=== PATIENT | female | born 1950 | race Caucasian/White ===

== ENCOUNTER 2020-10-09 11:11 | Outpatient (REF) | payer MEDICARE, SELFPAY ==
--- NOTE | 2020-10-09 11:17 | MM_ITS ---
EXAMINATION: MM SCREENING DIGITAL BREAST TOMOSYNTHESIS, BILATERAL CLINICAL INFORMATION: Screening. Asymptomatic. The lifetime risk of breast cancer based on the Tyrer-Cuzick Model is 4%. COMPARISON: Mammography: 10/04/2019, 09/29/2018, 09/08/2017 TECHNIQUE: Digital breast tomosynthesis is performed in both the craniocaudal and mediolateral oblique views along with computer-aided detection (CAD). Synthesized 2D images are generated from the tomosynthesis. FINDINGS: There are scattered areas of fibroglandular density (ACR BI-RADS breast composition Category b). There are no significant masses, abnormal calcifications, or other abnormalities. Parenchymal pattern is similar to prior exams. The axilla are unremarkable. MM/MM tomosynthesis screening BI IMPRESSION: No mammographic evidence of malignancy. ASSESSMENT: BI-RADS 1: Negative RECOMMENDATION: Routine annual mammography screening. This patient's information was entered into a reminder system with a target due date for their next mammogram.
== END 2020-10-09 11:12 | disposition home or self-care (01) ==
LOC: HO.MAMMO 11:11
PROVIDERS: PCP Internal Medicine; Visit Provider Internal Medicine
DX: Z12.31 Encounter for screening mammogram for malignant neoplasm of breast (principal)
CPT/HCPCS: 77063; 77067

== ENCOUNTER 2020-11-15 09:23 | Outpatient (REF) | payer MEDICARE, SELFPAY ==
[2020-11-15 11:20] LABS: Hematocrit 44.9 % (37-47); Hemoglobin 14.8 g/dl (12.0-16.0); Mean Corpuscular Hemoglobin 31.8 pg (27.0-33.0); Mean Corpuscular Volume 96.6 fL (80-98); Mean Platelet Volume 10.3 fL (9.4-12.3); Platelet Count 315 X10*3/uL (160-400); Red Blood Count 4.65 X10*6/uL (4.20-5.50); White Blood Count 8.1 X10*3/uL (4.8-10.8)
[2020-11-15 11:31] LABS: Estimated Average Glucose 131 mg/dL; Hemoglobin A1c % 6.2 %
[2020-11-15 11:53] LABS: Cholesterol 199 mg/dL; HDL Cholesterol 58 mg/dL; LDL Cholesterol Calculated 123 mg/dl; Triglycerides 92 mg/dL
== END 2020-11-15 09:24 | disposition home or self-care (01) ==
LOC: HO.HMGCLDS 09:23
PROVIDERS: PCP Internal Medicine; Visit Provider Internal Medicine
DX: E11.9 Type 2 diabetes mellitus without complications (principal); E78.5 Hyperlipidemia, unspecified; J44.9 Chronic obstructive pulmonary disease, unspecified
CPT/HCPCS: 36415; 80061; 83036; 85027

== ENCOUNTER 2021-02-25 09:47 | Outpatient (REF) | payer MEDICARE, SELFPAY ==
[2021-02-25 11:24] LABS: MANUAL DIFF FLAG NO
[2021-02-25 11:41] LABS: Basophils Absolute Auto 0.1 X10*3/uL (0.0-0.2); Basophils Percent Auto 1.2 % (0-2); Eosinophils Absolute Auto 0.2 X10*3/uL (0.0-0.4); Eosinophils Percent Auto 2.1 % (0-4); Hemoglobin 15.5 g/dl (12.0-16.0); Imm Gran Abs Auto 0.03 X10*3/uL (0.00-0.03); Imm Gran Pct Auto 0.4 % (0.0-0.4); Lymphocytes Absolute Auto 2.4 X10*3/uL (1.2-4.9); Mean Corpuscular HGB Conc 33.7 g/dl (31.0-35.0); Mean Corpuscular Hemoglobin 32.3 pg (27.0-33.0); Mean Corpuscular Volume 95.8 fL (80-98); Mean Platelet Volume 10.4 fL (9.4-12.3); Monocytes Absolute Auto 0.7 X10*3/uL (0.1-1.2); Monocytes Percent Auto 8.7 % (2-11); Neutrophils Absolute Auto 4.8 X10*3/uL (2.0-8.3); Neutrophils Percent Auto 58.6 % (45-73); Platelet Count 324 X10*3/uL (160-400); Red Cell Distribution Width 13.1 % (11.0-16.0); White Blood Count 8.2 X10*3/uL (4.8-10.8)
[2021-02-25 11:49] LABS: Cholesterol 198 mg/dL; HDL Cholesterol 57 mg/dL; LDL Cholesterol Calculated 120 mg/dl; Triglycerides 107 mg/dL
[2021-02-25 12:13] LABS: Estimated Average Glucose 140 mg/dL; Hemoglobin A1c % 6.5 %
[2021-02-25 12:28] LABS: Creatinine Urine 58.58 mg/dL; Microalbumin Urine < 5.0 mg/L
== END 2021-02-25 09:48 | disposition home or self-care (01) ==
LOC: HO.HMGCLDS 09:47
PROVIDERS: PCP Internal Medicine; Visit Provider Internal Medicine
DX: E66.3 Overweight (principal); E11.9 Type 2 diabetes mellitus without complications; I10 Essential (primary) hypertension; J44.9 Chronic obstructive pulmonary disease, unspecified
CPT/HCPCS: 36415; 80061; 82043; 83036; 85025

== ENCOUNTER 2021-07-15 07:42 | Outpatient (REF) | payer MEDICARE, SELFPAY ==
[2021-07-15 11:18] LABS: Hematocrit 43.5 % (37-47); Hemoglobin 14.5 g/dl (12.0-16.0); Mean Corpuscular HGB Conc 33.3 g/dl (31.0-35.0); Mean Platelet Volume 10.5 fL (9.4-12.3); Platelet Count 281 X10*3/uL (160-400); Red Blood Count 4.53 X10*6/uL (4.20-5.50); Red Cell Distribution Width 13.2 % (11.0-16.0); White Blood Count 7.2 X10*3/uL (4.8-10.8)
[2021-07-15 12:00] LABS: Alanine Aminotransferase 18 U/L (0-31); Albumin Level 3.7 g/dL (3.5-5.0); Alkaline Phosphatase 98 U/L (39-117); Anion Gap 16 (12-20); Aspartate Amino Transferase 18 U/L (5-31); Blood Urea Nitrogen 18 mg/dL (9-16); Calcium 9.1 mg/dL (8.4-10.2); Carbon Dioxide 26 mmol/L (22-29); Chloride 104 mmol/L (96-108); Cholesterol 186 mg/dL; Estimated Glomerular Filt Rate > 60; Glucose Fasting 130 mg/dL (60-99); HDL Cholesterol 55 mg/dL; LDL Cholesterol Calculated 113 mg/dl; Potassium 3.9 mmol/L (3.3-5.1); Sodium 142 mmol/L (135-145); Total Protein 6.4 g/dL (6.5-8.0); Triglycerides 91 mg/dL
[2021-07-15 12:14] LABS: Estimated Average Glucose 128 mg/dL; Hemoglobin A1c % 6.1 %
[2021-07-15 14:28] LABS: Glucose Urine UA NEG (NEG); Leukocyte Esterase Urine NEG (NEG); Nitrite Urine NEG (NEG); PH 6.5 (5.0-8.0); Urine Blood NEG (NEG); Urine Ketones NEG (NEG); Urine Protein NEG (NEG-TRACE)
[2021-07-15 14:31] LABS: Appearance Urine CLEAR; Color Urine YELLOW
[2021-07-15 14:44] LABS: Creatinine Urine 63.58 mg/dL; Microalbumin Urine < 5.0 mg/L
[2021-07-15 14:58] LABS: RBC Urine 0 /HPF (0); Squamous Epithelial Cell Urine TRACE /LPF; WBC Urine 0 /HPF (0-4)
== END 2021-07-15 07:43 | disposition home or self-care (01) ==
LOC: HO.HMGCLDS 07:42
PROVIDERS: PCP Internal Medicine; Visit Provider Internal Medicine
DX: E11.9 Type 2 diabetes mellitus without complications (principal); E66.3 Overweight; I10 Essential (primary) hypertension
CPT/HCPCS: 36415; 80053; 80061; 81001; 82043; 83036; 85027

== ENCOUNTER → 2021-07-31 10:05 | Outpatient (REF) | payer MEDICARE, SELFPAY ==
--- NOTE | 2021-07-31 10:12 | ECG_ITS ---
Hook-up date: 2021-07-31 10:29:00 Duration: 25:25:00 Test Indications: CHR. COPD, PALPITATIONS Medications: [id number] QRS complexes 140 Ventricular ectopics which represent <1 % of total QRS comp. 704 Supraventricular ectopics which represent <1 % of total QRS comp. * Paced QRS complexs which represent % of total QRS comp. VENTRICULAR ECTOPY 140 Isolated 0 Bigeminal Cycles 0 Couplets 0 Runs 0 Beats in Runs * Beats LONGEST at * BPM at :: -- * Beats FASTEST at * BPM at :: -- SUPRAVENTRICULAR ECTOPY 681 Isolated 1 Couplets 4 Runs 21 Beats in Runs 9 Beats LONGEST at 169 BPM at 10:36:47 2021-07-31 3 Beats FASTEST at 178 BPM at 12:48:35 2021-07-31 HEART RATES 56 MIN at 06:52:26 2021-08-01 87 AVG 138 MAX at 10:52:07 2021-07-31 LONGEST RR 1.1760 secs at 06:11:30 2021-08-01 S-T LEVELS Channel 1 - 128 mm at 10:29:00 2021-07-31 - 128 mm at 10:29:00 2021-07-31 Channel 2 - 128 mm at 10:29:00 2021-07-31 - 128 mm at 10:29:00 2021-07-31 Channel 3 - 128 mm at 02:94:81 -- - 128 mm at 02:94:81 Basic rhythm Normal sinus rhythm No long pause or profound bradycardia Occasional Premature atrial complexes Few short bursts of SVT longest 9 beats at 169 bpm Patient symptoms of SOB correlated with NSR Referred By: Milli Colin Overread By: NICOLASA TREJO MD
== END ==
LOC: HO.SL 10:05
PROVIDERS: PCP Internal Medicine; Visit Provider Internal Medicine
DX: R09.02 Hypoxemia (principal); R00.2 Palpitations; J44.9 Chronic obstructive pulmonary disease, unspecified; G47.30 Sleep apnea, unspecified
CPT/HCPCS: 93225; 93226; 95806

== ENCOUNTER 2021-12-04 08:01 | Outpatient (REF) | payer MEDICARE, SELFPAY ==
[2021-12-04 11:50] LABS: Alanine Aminotransferase 18 U/L (0-31); Alkaline Phosphatase 101 U/L (39-117); Anion Gap 15 (12-20); Aspartate Amino Transferase 18 U/L (5-31); Blood Urea Nitrogen 18 mg/dL (9-16); Calcium 9.7 mg/dL (8.4-10.2); Carbon Dioxide 29 mmol/L (22-29); Chloride 102 mmol/L (96-108); Estimated Glomerular Filt Rate > 60; Glucose Fasting 122 mg/dL (60-99); Potassium 4.4 mmol/L (3.3-5.1); Sodium 142 mmol/L (135-145)
[2021-12-04 12:03] LABS: Estimated Average Glucose 134 mg/dL; Hemoglobin A1c % 6.3 %
== END 2021-12-04 08:02 | disposition home or self-care (01) ==
LOC: HO.HMGCLDS 08:01
PROVIDERS: Visit Provider Internal Medicine
DX: E11.9 Type 2 diabetes mellitus without complications (principal); I10 Essential (primary) hypertension; J44.9 Chronic obstructive pulmonary disease, unspecified; R09.02 Hypoxemia
CPT/HCPCS: 36415; 80053; 83036

== ENCOUNTER 2021-12-05 10:22 | Outpatient (REF) | payer MEDICARE, SELFPAY ==
--- NOTE | ~2021-12-05 | XR_ITS ---
EXAMINATION: XR CHEST CLINICAL INFORMATION: Idiopathic sleep-related nonobstructive alveolar disease. COMPARISON: None TECHNIQUE: 2 views of the chest were obtained. FINDINGS: The lungs are well expanded with plate-like atelectasis right midlung. The rest of the lungs are well expanded and clear. The heart size and pulmonary vascularity is normal. There is mild spondylosis dorsal spine. No lytic process. XR/XR chest 2V IMPRESSION: Plate-like atelectasis right midlung. No acute process.
[2021-12-05 11:49] LABS: Venous Blood Gas Refer to POC result
[2021-12-05 11:50] LABS: VBG Base Excess 0.4 mmol/L; VBG HCO3 24 mmol/L (22-26); VBG pCO2 36 mmHg; VBG pH 7.43 (7.32-7.43); VBG pO2 32 mmHg
== END 2021-12-05 10:23 | disposition home or self-care (01) ==
LOC: HO.LAB 10:22
PROVIDERS: PCP Internal Medicine; Visit Provider Internal Medicine
DX: J44.9 Chronic obstructive pulmonary disease, unspecified (principal); G47.34 Idiopathic sleep related nonobstructive alveolar hypoventilation; G47.33 Obstructive sleep apnea (adult) (pediatric); E66.3 Overweight; Z79.899 Other long term (current) drug therapy; Z99.81 Dependence on supplemental oxygen; Z87.891 Personal history of nicotine dependence
CPT/HCPCS: 36415; 71046; 82803; 99202

== ENCOUNTER 2021-12-24 11:23 | Outpatient (REF) | payer MEDICARE, SELFPAY ==
--- NOTE | ~2021-12-24 | MM_ITS ---
EXAMINATION: MM SCREENING DIGITAL BREAST TOMOSYNTHESIS, BILATERAL CLINICAL INFORMATION: Screening. Asymptomatic. The lifetime risk of breast cancer based on the Tyrer-Cuzick Model is 3%. COMPARISON: Mammography: 10/09/2020, 10/04/2019, 09/29/2018, 09/08/2017 TECHNIQUE: Digital breast tomosynthesis is performed in both the craniocaudal and mediolateral oblique views along with computer-aided detection (CAD). Synthesized 2D images are generated from the tomosynthesis. Additional bilateral MLO views are provided. FINDINGS: There are scattered areas of fibroglandular density (ACR BI-RADS breast composition Category b). There are no significant masses, abnormal calcifications, or other abnormalities. There is no interval mass or architectural abnormality. No significant changes from prior studies. MM/MM tomosynthesis screening BI IMPRESSION: No mammographic evidence of malignancy. ASSESSMENT: BI-RADS 1: Negative RECOMMENDATION: Routine annual mammography screening. This patient's information was entered into a reminder system with a target due date for their next mammogram.
== END 2021-12-24 11:24 | disposition home or self-care (01) ==
LOC: HO.MAMMO 11:23
PROVIDERS: Visit Provider Internal Medicine
DX: Z12.31 Encounter for screening mammogram for malignant neoplasm of breast (principal)
CPT/HCPCS: 77063; 77067

== ENCOUNTER → 2022-02-03 10:32 | Outpatient (BNVA) | payer MEDICARE, SELFPAY | PROVIDERS: PCP Internal Medicine; Visit Provider Internal Medicine | DX: J44.9 Chronic obstructive pulmonary disease, unspecified (principal); G47.34 Idiopathic sleep related nonobstructive alveolar hypoventilation; G47.33 Obstructive sleep apnea (adult) (pediatric); E11.9 Type 2 diabetes mellitus without complications; I10 Essential (primary) hypertension; E66.01 Morbid (severe) obesity due to excess calories; Z68.41 Body mass index [BMI] 40.0-44.9, adult; Z87.891 Personal history of nicotine dependence; Z99.81 Dependence on supplemental oxygen; Z88.0 Allergy status to penicillin; Z88.2 Allergy status to sulfonamides; Z79.899 Other long term (current) drug therapy | CPT/HCPCS: 99212 ==

== ENCOUNTER 2022-02-27 08:33 | Outpatient (REF) | payer MEDICARE, SELFPAY ==
[2022-02-27 11:23] LABS: Hematocrit 43.4 % (37.0-47.0); Hemoglobin 14.8 g/dl (12.0-16.0); Mean Corpuscular HGB Conc 34.1 g/dl (31.0-35.0); Mean Corpuscular Hemoglobin 32.2 pg (27.0-33.0); Mean Corpuscular Volume 94.6 fL (80.0-98.0); Mean Platelet Volume 10.4 fL (9.4-12.3); Platelet Count 287 X10*3/uL (160-400); Red Blood Count 4.59 X10*6/uL (4.20-5.50); Red Cell Distribution Width 13.1 % (11.0-16.0); White Blood Count 7.4 X10*3/uL (4.8-10.8)
[2022-02-27 11:26] LABS: Estimated Average Glucose 126 mg/dL
[2022-02-27 11:39] LABS: Alanine Aminotransferase 18 U/L (0-31); Albumin Level 3.8 g/dL (3.5-5.0); Alkaline Phosphatase 97 U/L (39-117); Anion Gap 17 (12-20); Aspartate Amino Transferase 19 U/L (5-31); Bilirubin Total 1.1 mg/dL (0.0-1.0); Blood Urea Nitrogen 12 mg/dL (9-16); Calcium 9.3 mg/dL (8.4-10.2); Carbon Dioxide 26 mmol/L (22-29); Chloride 101 mmol/L (96-108); Cholesterol 197 mg/dL; Estimated Glomerular Filt Rate > 60; Glucose Fasting 133 mg/dL (60-99); HDL Cholesterol 54 mg/dL; LDL Cholesterol Calculated 124 mg/dl; Potassium 4.1 mmol/L (3.3-5.1); Sodium 140 mmol/L (135-145); Total Protein 6.6 g/dL (6.5-8.0); Triglycerides 97 mg/dL
[2022-02-27 11:58] LABS: Creatinine Urine 134.59 mg/dL; Microalbum/Creatinine Ratio Ur 7.4 ug/mg cr
[2022-02-27 12:03] LABS: TSH reflex Free T4 1.63 uIU/mL (0.32-4.0)
== END 2022-02-27 08:34 | disposition home or self-care (01) ==
LOC: HO.HMGCLDS 08:33
PROVIDERS: Visit Provider Internal Medicine
DX: E11.9 Type 2 diabetes mellitus without complications (principal); I10 Essential (primary) hypertension; J44.9 Chronic obstructive pulmonary disease, unspecified
CPT/HCPCS: 36415; 80053; 80061; 82043; 83036; 84443; 85027

== ENCOUNTER 2022-02-27 10:54 | Outpatient (REF) | payer MEDICARE, SELFPAY ==
--- NOTE | 2022-02-27 15:58 | PFT_ITS ---
FLOWS: FEV1 62% of predicted at 1.19 L. FVC 70% of predicted at 1.78 L. FEV1 to FVC ratio of 0.67. No bronchodilator response. LUNG VOLUMES: Total lung capacity 83% of predicted at 3.84 L. Residual volume 81% of predicted at 1.70 L. Slow vital capacity 85% of predicted at 2.14 L. Expiratory reserve volume 30% of predicted at 0.16 L. Diffusion capacity is moderately decreased. IMPRESSION: Moderate obstructive ventilatory defect with no bronchodilator response. Decreased expiratory reserve volume suggests extrathoracic restriction, likely secondary to abdominal obesity. Decreased diffusion capacity suggests emphysema. MD FABIAN Rizzo/MODL / [id number]
== END 2022-02-27 10:55 | disposition home or self-care (01) ==
LOC: HO.RESP 10:54
PROVIDERS: PCP Internal Medicine; Visit Provider Internal Medicine
DX: G47.33 Obstructive sleep apnea (adult) (pediatric) (principal); G47.34 Idiopathic sleep related nonobstructive alveolar hypoventilation; J44.9 Chronic obstructive pulmonary disease, unspecified
CPT/HCPCS: 94060; 94727; 94729

== ENCOUNTER 2022-03-27 10:55 | Outpatient (REF) | payer MEDICARE, SELFPAY ==
[2022-03-27 14:00] LABS: Appearance Urine HAZY; Color Urine YELLOW; Glucose Urine UA NEG (NEG); Leukocyte Esterase Urine 2+ (NEG); Nitrite Urine NEG (NEG); PH 7.5 (5.0-8.0); UACC Culture Trigger YES; Urine Blood 1+ (NEG); Urine Ketones NEG (NEG); Urine Protein TRACE MG/DL (NEG-TRACE)
[2022-03-27 14:19] LABS: Bacteria Urine TRACE /LPF; Squamous Epithelial Cell Urine TRACE /LPF
== END 2022-03-27 10:56 | disposition home or self-care (01) ==
LOC: HO.HMGCLDS 10:55
PROVIDERS: PCP Internal Medicine; Visit Provider Internal Medicine
DX: R35.0 Frequency of micturition (principal); N81.10 Cystocele, unspecified
CPT/HCPCS: 81001; 81003; 87086; 87088; 87186

== ENCOUNTER 2022-03-28 15:36 | Outpatient (REF) | payer MEDICARE, SELFPAY ==
--- NOTE | ~2022-03-28 | US_ITS ---
EXAMINATION: US PELVIS CLINICAL INFORMATION: Cystocele COMPARISON: None TECHNIQUE: Ultrasound of the pelvis is performed using both transabdominal and transvaginal transducers along with Doppler. Transvaginal imaging is performed due to inadequate visualization transabdominally. FINDINGS: Uterus: The uterus is measuring 6.5 x 2.4 x 3.2 cm. Anteverted, anteflexed. Endometrial thickness is measured by the minister of religion at 7 mm. My measurement 1.1 cm. Endometrial canal is characterized by focal area of increased echogenicity measured by the minister of religion at 5 x 6 x 5 mm. This could represent a polyp. The ovaries are not visualized. There is no free fluid. Bladder volume measured at 19.7 mL. Decompressed bladder. US/US pelvic and transvaginal IMPRESSION: Bladder is decompressed. The endometrial canal is widened in this postmenopausal patient with mixed echogenicity and a focal area which could represent an echogenic polyp versus other. Gynecologic consultation is warranted
== END 2022-03-28 15:37 | disposition home or self-care (01) ==
LOC: HO.US 15:36
PROVIDERS: PCP Internal Medicine; Visit Provider Internal Medicine
DX: R35.0 Frequency of micturition (principal); N81.10 Cystocele, unspecified; N95.0 Postmenopausal bleeding
CPT/HCPCS: 76830; 76856

== ENCOUNTER → 2022-04-16 13:53 | Outpatient (BNVA) | payer MEDICARE, SELFPAY | PROVIDERS: PCP Internal Medicine; Visit Provider Obstetrics & Gynecology | DX: N95.0 Postmenopausal bleeding (principal) | CPT/HCPCS: 99202 ==

== ENCOUNTER → 2022-04-22 14:38 | Outpatient (BNVA) | payer MEDICARE, SELFPAY | PROVIDERS: PCP Internal Medicine; Visit Provider Internal Medicine | DX: J44.9 Chronic obstructive pulmonary disease, unspecified (principal); G47.34 Idiopathic sleep related nonobstructive alveolar hypoventilation; G47.33 Obstructive sleep apnea (adult) (pediatric) | CPT/HCPCS: 99212 ==

== ENCOUNTER 2022-05-02 12:48 | Outpatient (REF) | payer MEDICARE, SELFPAY ==
[2022-05-02 15:48] LABS: Estimated Average Glucose 223 mg/dL; Hemoglobin A1c % 9.4 %
[2022-05-02 16:06] LABS: Alanine Aminotransferase 21 U/L (0-31); Albumin Level 3.9 g/dL (3.5-5.0); Alkaline Phosphatase 128 U/L (39-117); Anion Gap 15 (12-20); Aspartate Amino Transferase 17 U/L (5-31); Bilirubin Total 1.1 mg/dL (0.0-1.0); Blood Urea Nitrogen 14 mg/dL (9-16); Calcium 9.4 mg/dL (8.4-10.2); Carbon Dioxide 26 mmol/L (22-29); Chloride 97 mmol/L (96-108); Estimated Glomerular Filt Rate 51; Glucose Random 390 mg/dL (60-115); Sodium 134 mmol/L (135-145); Total Protein 7.1 g/dL (6.5-8.0)
[2022-05-03 18:36] LABS: C Peptide 2.77 ng/mL (0.80-3.85)
== END 2022-05-02 12:49 | disposition home or self-care (01) ==
LOC: HO.HMGCLDS 12:48
PROVIDERS: PCP Internal Medicine; Visit Provider Internal Medicine
DX: E11.9 Type 2 diabetes mellitus without complications (principal)
CPT/HCPCS: 36415; 80053; 83036; 84681

== ENCOUNTER 2022-05-09 05:51 | Day surgery (SDC) | payer MEDICARE, SELFPAY ==
[2022-04-30 18:38] VITALS: BMI 38.0
--- NOTE | 2022-05-07 14:04 | P.CONAN_ITS ---
HPI - Anesthesia Eval Consult details Narrative: 72yo F for D&C Hysteroscopy, possible polypectomy/myomectomy O2 at [facility] Active Problems Active Problems: All Active Problems (Updated 04/30/22 @ 18:36 by Romy Kauffman RN) HTN (hypertension) (Acute) COPD (chronic obstructive pulmonary disease) (Acute) DM (diabetes mellitus) (Acute) Colon cancer screening (Acute) Overweight (Acute) Palpitations (Acute) Hypoxia (Acute) Nocturnal hypoxemia (Acute) MORRO (obstructive sleep apnea) (Acute) Vitamin D deficiency (Acute) Increased urinary frequency (Acute) Vaginal prolapse (Acute) Postmenopausal bleeding (Acute) Past Medical History Medical History Arthritis Dependence on nocturnal oxygen therapy GERD (gastroesophageal reflux disease) GERD (gastroesophageal reflux disease) History of DVT (deep vein thrombosis) Mammogram normal Osteoarthritis Family History Family History Father ETOH abuse Cirrhosis Mother COPD (chronic obstructive pulmonary disease) Diabetes Brother Substance use disorder Surgical History Surgical History H/O colonoscopy History of cataract Hx of cholecystectomy Social History Social History Housing: House Patient Tobacco Use Status: Former Tobacco user Quit Date: 2001 e-Cigarette/Vaping Use: Never Used Current occupational status: retired Cognitive needs: No Hearing needs: No Vision needs: Yes Meds Allergies Allergy/AdvReac Type Severity Reaction Status Date / Time Penicillins Allergy Unknown pt does Verified 05/21/22 11:53 not know she was a child Sulfa (Sulfonamide Allergy Unknown Unknown Verified 05/21/22 11:53 Antibiotics) Home Medications Medication Instructions Recorded Confirmed Last Taken Type albuterol sulfate 90 mcg/actuation 2 puff inhalation Q6H PRN 08/17/20 05/02/22 Unknown History aerosol inhaler (Ventolin HFA) Shortness Of Breath Or Wheezing blood sugar diagnostic ([employer]ChalksTouch #10 ea 08/17/20 05/02/22 Unknown History Ultra Blue Test Strip) lancets 33 gauge (OneTouch Delica #100 ea 08/17/20 05/02/22 Unknown History Lancets) omega 0-yal-wcu-fish oil 1,000 mg 1 cap PO DAILY 08/17/20 05/02/22 Unknown History (120 mg-180 mg) capsule (Fish Oil) omeprazole magnesium 20 mg 20 mg PO DAILY 08/17/20 05/02/22 05/09/22 History tablet,delayed release (Prilosec OTC) glucosamine HCl 1,500 mg tablet 1,500 mg PO DAILY 12/05/21 05/02/22 Unknown History multivitamin (Multiple Vitamins) 1 tab PO DAILY 12/05/21 05/02/22 Unknown History pseudoephedrine HCl 30 mg tablet 30 mg PO Q4-6H PRN Allergic 12/05/21 05/02/22 Unknown History (Sudafed) Symptoms cetirizine 10 mg capsule (Zyrtec) 10 mg PO DAILY 02/03/22 05/02/22 Unknown History ascorbic acid (vitamin C) 500 mg 500 mg PO DAILY 03/03/22 05/02/22 Unknown History tablet cholecalciferol (vitamin D3) 25 25 mcg PO DAILY 03/03/22 05/02/22 Unknown History mcg (1,000 unit) capsule fluticasone fur. 100 mcg-umeclid 1 ea inhalation DAILY 04/30/22 05/02/22 05/09/22 History 62.5 mcg-vilant 25 mcg inhalat.powder (Trelegy Ellipta) Exam Exam Date and Time: May 07, 2022 1404 Height,Weight and Vital Signs: Height 5 ft 1 in Weight 91.172 kg Pertinent Lab Results Pertinent Lab Results: Laboratory Tests 02/27/22 05/02/22 08:40 12:53 WBC 7.4 Hgb 14.8 Hct 43.4 Plt Count 287 Sodium 134 L Potassium 4.0 Chloride 97 Carbon Dioxide 26 BUN 14 Creatinine 1.06 Narrative Narrative: PFT 02/2022 IMPRESSION:? Moderate obstructive ventilatory defect with no bronchodilator response. Decreased expiratory reserve volume suggests extrathoracic restriction, likely secondary to abdominal obesity.? Decreased diffusion capacity suggests emphysema. Assessment and Plan Assessment Anesthesia Assessment: Chart Reviewed
[2022-05-09 06:24] VITALS: BP 156/63; PULSE 99; RESP 20; TEMP 36.6; O2SAT 95
[2022-05-09 06:27] LABS: Glucose, Whole Blood 176 mg/dL (60-115)
[2022-05-09] MEDS: Lactated Ringers 1,000 ML 100 ML IVCONT (06:36)
--- NOTE | 2022-05-09 07:22 | HO.ANESPROP2 ---
[facility] Active Problems Active Problems: All Active Problems (Updated 04/30/22 @ 18:36 by Romy Kauffman RN) HTN (hypertension) (Acute) COPD (chronic obstructive pulmonary disease) (Acute) DM (diabetes mellitus) (Acute) Colon cancer screening (Acute) Overweight (Acute) Palpitations (Acute) Hypoxia (Acute) Nocturnal hypoxemia (Acute) MORRO (obstructive sleep apnea) (Acute) Vitamin D deficiency (Acute) Increased urinary frequency (Acute) Vaginal prolapse (Acute) Postmenopausal bleeding (Acute) Past Medical History Medical History Arthritis Dependence on nocturnal oxygen therapy GERD (gastroesophageal reflux disease) GERD (gastroesophageal reflux disease) History of DVT (deep vein thrombosis) Mammogram normal Osteoarthritis Family History Family History Father ETOH abuse Cirrhosis Mother COPD (chronic obstructive pulmonary disease) Diabetes Brother Substance use disorder Family history of problems with anesthesia: No Surgical History Surgical History H/O colonoscopy History of cataract Hx of cholecystectomy History of Problems with Anesthesia: No Social History Social History Housing: House Patient Tobacco Use Status: Former Tobacco user Quit Date: 2001 e-Cigarette/Vaping Use: Never Used Use of substances other than those prescribed or required for medical reasons: No Are you DNR?: No Advance Directives: No Advance Directives Information Provided: No Advance Directives on File: No Recently lost weight without trying: No Nutrition Risks: No Nutritional Risk Patient : No Current occupational status: retired Cognitive needs: No Hearing needs: No Vision needs: Yes Meds Allergies Allergy/AdvReac Type Severity Reaction Status Date / Time Penicillins Allergy Unknown pt does Verified 05/02/22 12:02 not know she was a child Sulfa (Sulfonamide Allergy Unknown Unknown Verified 05/02/22 12:02 Antibiotics) Active Medications: Current Medications Albuterol Sulfate (Albuterol Sulfate (0.083%) 2.5 Mg/3 Ml Vial.Neb) 2.5 mg INHALE ONCE PRN PRN Reason: Shortness of Breath/Wheezing Lactated Ringer's (Lr) 1,000 mls @ 100 mls/hr IVCONT .Q10H KIMMEI Last Admin: 05/09/22 06:36 Dose: 100 mls/hr Home Medications Medication Instructions Recorded Confirmed Last Taken Type albuterol sulfate 90 mcg/actuation 2 puff inhalation Q6H PRN 08/17/20 05/02/22 Unknown History aerosol inhaler (Ventolin HFA) Shortness Of Breath Or Wheezing blood sugar diagnostic ([facility]Touch #10 ea 08/17/20 05/02/22 Unknown History Ultra Blue Test Strip) lancets 33 gauge ([facility]Touch Delica #100 ea 08/17/20 05/02/22 Unknown History Lancets) omega 8-bjr-omp-fish oil 1,000 mg 1 cap PO DAILY 08/17/20 05/02/22 Unknown History (120 mg-180 mg) capsule (Fish Oil) omeprazole magnesium 20 mg 20 mg PO DAILY 08/17/20 05/02/22 05/09/22 History tablet,delayed release (Prilosec OTC) glucosamine HCl 1,500 mg tablet 1,500 mg PO DAILY 12/05/21 05/02/22 Unknown History multivitamin (Multiple Vitamins) 1 tab PO DAILY 12/05/21 05/02/22 Unknown History pseudoephedrine HCl 30 mg tablet 30 mg PO Q4-6H PRN Allergic 12/05/21 05/02/22 Unknown History (Sudafed) Symptoms cetirizine 10 mg capsule (Zyrtec) 10 mg PO DAILY 02/03/22 05/02/22 Unknown History ascorbic acid (vitamin C) 500 mg 500 mg PO DAILY 03/03/22 05/02/22 Unknown History tablet cholecalciferol (vitamin D3) 25 25 mcg PO DAILY 03/03/22 05/02/22 Unknown History mcg (1,000 unit) capsule fluticasone fur. 100 mcg-umeclid 1 ea inhalation DAILY 04/30/22 05/02/22 05/09/22 History 62.5 mcg-vilant 25 mcg inhalat.powder (Trelegy Ellipta) Exam Exam Date and Time: May 09, 2022721 Height,Weight and Vital Signs: Height 5 ft 1 in Weight 91.172 kg Last Vital Signs Temp 97.8 F 05/09/22 06:24 Pulse 99 05/09/22 06:24 Resp 20 05/09/22 06:24 BP 156/63 H 05/09/22 06:24 Pulse Ox 95 05/09/22 06:24 O2 Del Method 05/09/22 06:24 Pertinent Lab Results Pertinent Lab Results: Laboratory Tests 05/09/22 06:23 POC Glucose 176 H Airway Mallampati Class: I TM Dist: >3cm Neck ROM: Full Loose/Missing/Broken Teeth: No Heart: rrr Lungs: clear Assessment and Plan Final Anesthetic Review Family History of Problems with Anesthesia: No History of Problems with Anesthesia: No NPO: Yes Final Preanesthetic Review: No Changes in Pt Med Stat, Meds/Allgs Chart Reviewed, Consent Obtained/Reviewed and Anes Risks/Benef Reviewed Anesthetic Plan Anesthetic Plan: GA Disposition: Standard PACU
--- NOTE | 2022-05-09 07:36 | MHC.SHP ---
Pre-Procedural Eval Section A Date of Service: 05/09/22 The patient is an INPATIENT: No Changes since office visit: No Cold of Flu in the past 2 weeks, No New Medical Problems, No Changes in Medication and No Patient answered all questions The History & Physical has been completed within 30 days and I have reviewed it.: Yes Section B Chief Complaint: bleeding Allergies: Allergies Allergy/AdvReac Type Severity Reaction Status Date / Time Penicillins Allergy Unknown pt does Verified 05/02/22 12:02 not know she was a child Sulfa (Sulfonamide Allergy Unknown Unknown Verified 05/02/22 12:02 Antibiotics) Plan Diagnosis/Plan: Unchanged I have reviewed the history and physical and performed a pertinent physical examination on my patient. No changes have occurred unless specified.
--- NOTE | 2022-05-09 08:07 | PM.OP ---
Brief Operative Note Date of Service: 05/09/22 Pre-op diagnosis: Postmenopausal bleeding with endometrial polyp by ultrasound Post-op diagnosis: same Procedure: Hysteroscopy D&C, Polypectomy Surgeon: Fredi Carbajal MD Anesthesia: MAC Was an Farm Management Teacher used for this Procedure?: No Estimated blood loss (mL): 0 Pathology: other (Endometrial Scrapping. Polyp) Condition: stable Disposition: PACU
--- NOTE | 2022-05-09 08:08 | W.PM.OPN ---
Operative Note Operative Note Date of Service: 05/09/22 Narrative: Preop Diagnosis: Postmenopausal bleeding with Endometrial polyp by US Operation: Diagnostic Hysteroscopy, Dilataion & Curettage and polypectomy Post Op Diagnosis: Endometrial Polyp QBL: Minimal Anesthesia: MAC Surgeon: Fredi Carbajal MD Monogram Machine Operator: None Complication: None Pathology: Endometrial Scrapings, Endometrial polyp Procedure: The patient was put in the dorsal lithotomy position, scrubbed, and draped in the usual manner. A sterile speculum was inserted in the patient's vagina. The anterior lip of the cervix was grasped with a single tooth tenaculum. The cervix was dilated up to 5 mm, then the scope was inserted in the patient's uterus. Inspection revealed endometrial polyp. The Myosure Reach device was used; it was introduced through the operative channel and polypectomy done with no complications. At the end of the procedure, all instruments were taken out of the patient uterine and vaginal cavity. The single tooth tenaculum was removed and homeostasis was assured using pressure,. The patient tolerated the procedure well and was transferred to the PACU in a stable condition.
[2022-05-09 08:11] VITALS: BP 157/57; PULSE 84; RESP 16; TEMP 36.2; O2SAT 97
[2022-05-09 08:16] VITALS: BP 175/49; PULSE 81; RESP 14; O2SAT 94
[2022-05-09 08:21] VITALS: BP 132/46; PULSE 81; RESP 16; O2SAT 93
[2022-05-09 08:26] VITALS: BP 118/62; PULSE 75; RESP 16; O2SAT 94
[2022-05-09 08:40] VITALS: BP 126/50; PULSE 74; RESP 16; TEMP 36.3; O2SAT 94
== END 2022-05-09 09:00 | disposition home or self-care (01) ==
PROVIDERS: PCP Internal Medicine; Visit Provider Obstetrics & Gynecology
PROC: 0UDB8ZZ Extraction of Endometrium, Via Natural or Artificial Opening Endoscopic (ICD-10-PCS; CPT 58558; principal; 2022-05-09 07:30)
DX: N95.0 Postmenopausal bleeding (principal); N84.0 Polyp of corpus uteri; J44.9 Chronic obstructive pulmonary disease, unspecified; Z87.891 Personal history of nicotine dependence; Z88.0 Allergy status to penicillin; Z88.2 Allergy status to sulfonamides; I10 Essential (primary) hypertension; G47.33 Obstructive sleep apnea (adult) (pediatric); R09.02 Hypoxemia; Z99.81 Dependence on supplemental oxygen; E11.9 Type 2 diabetes mellitus without complications; Z79.51 Long term (current) use of inhaled steroids; Z79.899 Other long term (current) drug therapy
CPT/HCPCS: 58558; 82947; 88305; J1100; J2405; J3010

== ENCOUNTER → 2022-05-22 08:42 | Outpatient (BNVA) | payer MEDICARE, SELFPAY | PROVIDERS: PCP Internal Medicine; Visit Provider Obstetrics & Gynecology | DX: N95.0 Postmenopausal bleeding (principal); N84.0 Polyp of corpus uteri | CPT/HCPCS: 99212 ==

== ENCOUNTER → 2022-08-26 10:25 | Outpatient (BNVA) | payer MEDICARE, SELFPAY | PROVIDERS: PCP Internal Medicine; Visit Provider Internal Medicine | DX: J44.9 Chronic obstructive pulmonary disease, unspecified (principal); G47.33 Obstructive sleep apnea (adult) (pediatric); E66.3 Overweight | CPT/HCPCS: 99212 ==

== ENCOUNTER 2022-08-29 09:29 | Outpatient (REF) | payer MEDICARE, SELFPAY ==
[2022-08-29 11:43] LABS: Hematocrit 40.4 % (37.0-47.0); Hemoglobin 13.7 g/dl (12.0-16.0); Mean Corpuscular HGB Conc 33.9 g/dl (31.0-35.0); Mean Corpuscular Hemoglobin 32.3 pg (27.0-33.0); Mean Corpuscular Volume 95.3 fL (80.0-98.0); Mean Platelet Volume 10.6 fL (9.4-12.3); Platelet Count 293 X10*3/uL (160-400); Red Blood Count 4.24 X10*6/uL (4.20-5.50); Red Cell Distribution Width 12.9 % (11.0-16.0); White Blood Count 9.2 X10*3/uL (4.8-10.8)
[2022-08-29 11:50] LABS: Estimated Average Glucose 114 mg/dL; Hemoglobin A1c % 5.6 %
[2022-08-29 12:21] LABS: Alanine Aminotransferase 17 U/L (0-31); Alkaline Phosphatase 75 U/L (39-117); Anion Gap 16 (12-20); Aspartate Amino Transferase 16 U/L (5-31); Bilirubin Total 0.6 mg/dL (0.0-1.0); Blood Urea Nitrogen 17 mg/dL (9-16); Calcium 9.4 mg/dL (8.4-10.2); Carbon Dioxide 28 mmol/L (22-29); Chloride 99 mmol/L (96-108); Cholesterol 194 mg/dL; Estimated Glomerular Filt Rate > 60; Glucose Fasting 119 mg/dL (60-99); HDL Cholesterol 54 mg/dL; LDL Cholesterol Calculated 114 mg/dl; Potassium 4.3 mmol/L (3.3-5.1); Sodium 139 mmol/L (135-145); Total Protein 6.6 g/dL (6.5-8.0); Triglycerides 131 mg/dL; Vitamin D 25-OH Total 49.7 ng/mL (>30)
[2022-08-29 12:25] LABS: Creatinine Urine 156.98 mg/dL; Microalbum/Creatinine Ratio Ur 19.7 ug/mg cr
== END 2022-08-29 09:30 | disposition home or self-care (01) ==
LOC: HO.HMGCLDS 09:29
PROVIDERS: PCP Internal Medicine; Visit Provider Internal Medicine
DX: E11.9 Type 2 diabetes mellitus without complications (principal); J44.9 Chronic obstructive pulmonary disease, unspecified; E55.9 Vitamin D deficiency, unspecified; I10 Essential (primary) hypertension
CPT/HCPCS: 36415; 80053; 80061; 82043; 82306; 83036; 85027

== ENCOUNTER 2023-01-22 10:03 | Outpatient (REF) | payer MEDICARE, SELFPAY ==
--- NOTE | ~2023-01-22 | MM_ITS ---
EXAMINATION: MM SCREENING DIGITAL BREAST TOMOSYNTHESIS, BILATERAL CLINICAL INFORMATION: Screening. Asymptomatic. The lifetime risk of breast cancer based on the Tyrer-Cuzick Model is 2.9%. COMPARISON: Mammography: December 24, 2021 and studies dating back to August 06, 2016 TECHNIQUE: Digital breast tomosynthesis is performed in both the craniocaudal and mediolateral oblique views along with computer-aided detection (CAD). Synthesized 2D images are generated from the tomosynthesis. FINDINGS: There are scattered areas of fibroglandular density (ACR BI-RADS breast composition Category b). There are no significant masses, abnormal calcifications, or other abnormalities. MM/MM tomosynthesis screening BI IMPRESSION: No significant changes ASSESSMENT: BI-RADS 1: Negative RECOMMENDATION: Routine annual mammography screening. This patient's information was entered into a reminder system with a target due date for their next mammogram.
== END 2023-01-22 10:04 | disposition home or self-care (01) ==
LOC: HO.MAMMO 10:03
PROVIDERS: PCP Internal Medicine; Visit Provider Internal Medicine
DX: Z12.31 Encounter for screening mammogram for malignant neoplasm of breast (principal)
CPT/HCPCS: 77063; 77067

== ENCOUNTER → 2023-02-25 09:23 | Outpatient (BNVA) | payer MEDICARE, SELFPAY | PROVIDERS: PCP Internal Medicine; Visit Provider Internal Medicine | DX: J44.9 Chronic obstructive pulmonary disease, unspecified (principal); G47.33 Obstructive sleep apnea (adult) (pediatric); G47.34 Idiopathic sleep related nonobstructive alveolar hypoventilation | CPT/HCPCS: 99212 ==

== ENCOUNTER 2023-02-27 08:14 | Outpatient (REF) | payer MEDICARE, SELFPAY ==
[2023-02-27 12:20] LABS: Alanine Aminotransferase 16 U/L (0-31); Albumin Level 3.7 g/dL (3.5-5.0); Alkaline Phosphatase 89 U/L (39-117); Anion Gap 15 (12-20); Aspartate Amino Transferase 16 U/L (5-31); Bilirubin Total 0.8 mg/dL (0.0-1.0); Blood Urea Nitrogen 19 mg/dL (9-16); Calcium 9.1 mg/dL (8.4-10.2); Carbon Dioxide 27 mmol/L (22-29); Chloride 102 mmol/L (96-108); Cholesterol 201 mg/dL; Estimated Glomerular Filt Rate > 60; Glucose Fasting 125 mg/dL (60-99); HDL Cholesterol 52 mg/dL; LDL Cholesterol Calculated 128 mg/dl; Potassium 4.4 mmol/L (3.3-5.1); Sodium 140 mmol/L (135-145); Total Protein 6.1 g/dL (6.5-8.0); Triglycerides 106 mg/dL
[2023-02-27 12:33] LABS: Estimated Average Glucose 123 mg/dL; Hemoglobin A1c % 5.9 %
[2023-02-27 12:42] LABS: Creatinine Urine 136.85 mg/dL; Microalbum/Creatinine Ratio Ur 12.4 ug/mg cr
== END 2023-02-27 08:15 | disposition home or self-care (01) ==
LOC: HO.HMGCLDS 08:14
PROVIDERS: PCP Internal Medicine; Visit Provider Internal Medicine
DX: I10 Essential (primary) hypertension (principal); E11.9 Type 2 diabetes mellitus without complications
CPT/HCPCS: 36415; 80053; 80061; 82043; 83036

== ENCOUNTER → 2023-05-01 14:47 | Outpatient (REF) | payer MEDICARE, SELFPAY ==
--- NOTE | 2023-05-01 14:50 | CA_ITS ---
Transthoracic Echocardiogram Patient (Last, First, Middle): Stefania Gonzalez M Gender: Female Date of : 1950 Age: 73 Procedure Date: 05/01/2023 Procedure Type: Transthoracic Echocardiogram Location: OP Height: 154.94 cm Weight: 84.37 kg BSA: 1.83 m2 Heart Rate: 97 bpm BP: 150 / 80 mmHg Steel Erecting Pusher: TO Referring MD: Milli Colin MD Ship'S Surveyor: Edmundo Hoover MD Symptoms: J44.9 - Chronic obstructive pulmonary disease, unspecified Study Quality: Adequate ECG Rhythm: Sinus Conclusions: - Essentially normal study Findings Left Ventricle Normal left ventricular size, thickness, and systolic function. The visually estimated ejection fraction is between 65-70%. Spectral Doppler is indicative of an impaired relaxation filling pattern. E/E prime ratio is <8, consistent with normal filling pressures. Evidence suggests grade I (mild) diastolic dysfunction. Right Ventricle Normal right ventricular cavity size and systolic function. Atria Both atria are normal in size. Interatrial shunt cannot be excluded. Aortic Valve Normal aortic valve structure and function. There is no aortic valve stenosis. There is no aortic valve regurgitation. Mitral Valve Normal mitral valve structure and function. There is trace mitral valve regurgitation. There is no mitral valve stenosis. Pulmonic Valve The pulmonic valve is likely normal. There is trace pulmonic valve regurgitation. Tricuspid Valve Likely normal tricuspid valve structure and function. Tricuspid regurgitation envelope is inadequate for calculation of right ventricular systolic pressure. Normal right atrial pressure. Great Vessels All visible segments of the aorta are normal in size. The pulmonary artery was not well visualized. Venous The inferior vena cava is normal in size and collapses greater than 50% with inspiration. Pericardium/Pleural There is no evidence of pericardial effusion. Prior Study Comparison no previous study in the last 5 years for comparison Measurements 2D Linear Measurements IVSd: 0.87 0.6-0.9/0.6-1.0 cm LVIDd: 4.64 3.9-5.3/4.2-5.9 cm LVIDd Index: 2.54 2.4-3.2/2.2-3.1 cm/m2 LVIDs: 3.37 2.0-3.6 cm LVPWd: 0.79 0.7-1.1 cm LA Diam: 3.70 2.7-3.8/3.0-4.0 cm LAIDs Index: 2.02 1.5-2.3 cm/m2 LV Mass: 155.91 67-162/88-224 g LV Mass Index: 85.20 43-95/49-115 g/m2 LVOT Diam: 2.00 3.0+(-)1.3 cm 2D Systolic Function EF 4C: 61.10 >55% EF 2C: 75.30 >55% EF BiP: 68.50 >55% Mitral Valve MV VTI: 0.26 MV Pk Yakov: 1.21 MV Mn Yakov: 0.84 MV Pk Grad: 6.00 MV Mn Grad: 3.00 MV Pk E: 0.82 MV PK A: 1.21 MV Decel Time: 169.00 E/A: 0.70 E'Lateral: 7.72 E'Medial: 5.87 E/E' Med: 14.00 E/E' Lat: 10.70 PHT: 50.00 MVA PHT: 4.40 MVA Continuity: 3.16 Decel [place]: 4.87 Aortic Valve AoV Pk Yakov: 1.23 AoV Mn Yakov: 0.89 AoV VTI: 0.26 AoV Pk Grad: 6.00 Aov Mn Grad: 3.00 SINCERE Cont.VTI: 3.18 LVOT LVOT Pk Yakov: 1.14 LVOT Mn Yakov: 0.79 LVOT VTI: 0.26 LVOT Pk Grad: 5.00 LVOT Mn Grad: 3.00 LVOT Diam: 2.00 LVOT Area: 3.14 Diastolic Function MV Pk E: 0.82 MV Pk A: 1.21 E/A: 0.70 E'Medial: 5.87 E/E' Med: 14.00 E' Laterial: 7.72 E/E' Lat: 10.70 Right Ventricle TAPSE (mm): 19.10 TVS' Yakov: 15.60 Tricuspid Valve RA Press: 3.00 Great Vessels Aorta Sinus of Valsalva: 2.69 2.0-3.5 cm Ao Asc: 3.10 2.1-3.4 cm Updated in Other Vendor System with Status of Final Edmundo Hoover MD electronically signed on 05/02/2023 1:04:59 PM with status of Final
== END ==
LOC: HO.CARD 14:47
PROVIDERS: PCP Internal Medicine; Visit Provider Internal Medicine
DX: R06.09 Other forms of dyspnea (principal); J44.9 Chronic obstructive pulmonary disease, unspecified; E11.9 Type 2 diabetes mellitus without complications
CPT/HCPCS: 93306

== ENCOUNTER 2023-06-25 14:53 | Outpatient (AMB) | payer MEDICARE, SELFPAY ==
--- NOTE | 2023-06-25 14:57 | MHC.OFFVIS ---
Intake Vital Signs 06/25/23 14:58 Height 5 ft 1 in Weight 183 lb BMI 34.6 BP 110/70 Intake Visit Reasons: Annual/DO NOT RS Intake Note: no concerns Acquisition Advisor Required: No Information Interpreted: non-clinical & clinical Senior Portfolio Manager: Senior Portfolio Manager Present (Saira LOPEZ) Accompanied by: Self / Same As Patient Allergies Penicillins Allergy (Unknown, Verified 06/25/23 15:03) pt does not know she was a child Sulfa (Sulfonamide Antibiotics) Allergy (Unknown, Verified 06/25/23 15:03) Unknown Post menopausal: Yes HPI HPI Comments History of Present Illness Details Presenting for annual exam. No complaints. Last Pap/HPV was many years ago, no history of abnormal Pap smear last 25 year Last Mammogram was BI-RADS 1 in 02/05 Last Colonoscopy was in 01/28 , the recommendation was to repeat in 15 years Last DEXA scan was more than 2 years PFSH Medical History Arthritis Colon cancer screening COPD (chronic obstructive pulmonary disease) Dependence on nocturnal oxygen therapy DM (diabetes mellitus) GERD (gastroesophageal reflux disease) GERD (gastroesophageal reflux disease) History of DVT (deep vein thrombosis) Hypoxia Increased urinary frequency Mammogram normal Nocturnal hypoxemia MORRO (obstructive sleep apnea) Osteoarthritis Overweight Palpitations Postmenopausal bleeding Vaginal prolapse Vitamin D deficiency Surgical History H/O colonoscopy History of cataract Hx of cholecystectomy Family History Father ETOH abuse Cirrhosis Mother COPD (chronic obstructive pulmonary disease) Diabetes Brother Substance use disorder Social History Household Members: Spouse Housing: House Alcohol intake: current Alcohol intake frequency: holidays/special occasions only Patient Tobacco Use Status: Former Tobacco user Quit Date: 2001 Years Smoked: 30 e-Cigarette/Vaping Use: Never Used service: No Current occupational status: retired Sexual orientation: Straight/Heterosexual Gender identity: Female Cognitive needs: No Hearing needs: No Vision needs: Yes Female Reproductive History Menstrual Age of Menarche: 12 Menopause type: natural Total pregnancies: 1 Full term: 1 Number of Living Children: 1 Date of last pap smear: 01/22/23 Review of Systems Const All systems reviewed & are unremarkable except as noted in HPI and below Card Reports as per HPI Resp Reports as per HPI GI Reports as per HPI and Reports no additional complaints Reports as per HPI Physical Exam Const General: cooperative, healthy appearing and comfortable Chest Chest palpation & inspection: normal inspection of the chest and normal palpation of entire chest wall Breast/axilla inspection: normal inspection of the breasts and normal inspection of the axillae Breast/axilla palpation: normal palpation of the breasts, normal palpation of the axillae and no axillary lymphadenopathy Resp Effort & Inspection: normal respiratory effort Auscultation: clear to auscultation bilaterally Percussion: percussion normal Cardio Palpation: normal PMI Rate: regular rate Rhythm: regular rhythm Heart sounds: no murmurs and no rubs Peripheral pulses: Peripheral pulses 2+ throughout GI Inspection: Yes normal to inspection Palpation (GI): Soft to palpation, nontender, no guarding, not rigid and No hepatosplenomegaly present Percussion: Yes normal to percussion Auscultation: normal bowel sounds Rectal Exam - Female: deferred General: Yes bladder normal to palpation External Female Exam: No lesion Speculum Exam - Vagina: normal appearance of the vagina, normal palpation, normal vaginal discharge and not erythematous Speculum Exam - Cervix: normal appearance of the cervix and normal palpation Bimanual exam- vagina & uterus: normal bimanual exam, normal palpation, uterine size normal, bladder normal to palpation, consistency normal and normal palpation Bimanual Exam- Adnexa, other: normal adnexae, no masses and no tenderness Assessment & Plan Assessment & Plan (1) Well woman exam: Code(s): Z01.419 - Encounter for gynecological examination (general) (routine) without abnormal findings Plan: Co testing not indicated since the patient 's age is above 65 with no history of abnormal Pap smears last 25 years. Counseled the patient about the recommended dietary allowance of 1200 mg of Calcium & 800 IU of vitamin D. Instructions given the patient to schedule her next screening Mammogram in 02/06, the patient is up-to-date with the screening colonoscopy done. Will order DEXA scan . The patient was instructed to perform monthly self-breast exams and to schedule a 2 week DEXA scan follow-up appointment and an annual exam in a year; all questions answered and the patient verbalized understanding. (2) Menopause: Code(s): Z78.0 - Asymptomatic menopausal state Orders: Orders XR DEXA axial skeleton Today Z78.0 - Asymptomatic menopausal state Coding Level of Care Code Est Pt Prev Care >65y(38886) Diagnoses Well woman exam Z01.419 Menopause Z78.0
[2023-06-25 14:58] VITALS: BP 110/70; BMI 34.6
== END 2023-06-25 15:22 | disposition home or self-care (01) ==
LOC: HO.HWS 14:53
PROVIDERS: PCP Internal Medicine; Visit Provider Obstetrics & Gynecology
DX: Z01.419 Encounter for gynecological examination (general) (routine) without abnormal findings (principal); Z78.0 Asymptomatic menopausal state
CPT/HCPCS: 99397

== ENCOUNTER → 2023-06-25 14:53 | Outpatient (BNVA) | payer MEDICARE, SELFPAY | PROVIDERS: PCP Internal Medicine; Visit Provider Obstetrics & Gynecology ==

== ENCOUNTER 2023-07-04 07:19 | Outpatient (REF) | payer MEDICARE, SELFPAY ==
[2023-07-04 11:35] LABS: MANUAL DIFF FLAG NO
[2023-07-04 11:37] LABS: Basophils Absolute Auto 0.1 X10*3/uL (0.0-0.2); Basophils Percent Auto 0.9 % (0-2); Eosinophils Absolute Auto 0.1 X10*3/uL (0.0-0.4); Eosinophils Percent Auto 1.4 % (0-4); Hemoglobin 12.4 g/dl (12.0-16.0); Imm Gran Abs Auto 0.04 X10*3/uL (0.00-0.03); Imm Gran Pct Auto 0.4 % (0.0-0.4); Lymphocytes Absolute Auto 3.4 X10*3/uL (1.2-4.9); Lymphocytes Percent Auto 38.2 % (20-40); Mean Corpuscular HGB Conc 33.5 g/dl (31.0-35.0); Mean Corpuscular Hemoglobin 32.4 pg (27.0-33.0); Mean Corpuscular Volume 96.6 fL (80.0-98.0); Mean Platelet Volume 10.7 fL (9.4-12.3); Monocytes Absolute Auto 0.7 X10*3/uL (0.1-1.2); Monocytes Percent Auto 7.6 % (2-11); Neutrophils Absolute Auto 4.6 x10*3/uL (2.0-8.3); Neutrophils Percent Auto 51.5 % (45-73); Platelet Count 294 X10*3/uL (160-400); Red Blood Count 3.83 X10*6/uL (4.20-5.50); Red Cell Distribution Width 13.3 % (11.0-16.0)
[2023-07-04 11:52] LABS: Estimated Average Glucose 114 mg/dL; Hemoglobin A1C 122.9497 umol/L; Hemoglobin A1c % 5.6 %
[2023-07-04 11:55] LABS: Alanine Aminotransferase 19 U/L (0-31); Albumin Level 3.6 g/dL (3.5-5.0); Alkaline Phosphatase 73 U/L (39-117); Anion Gap 13 (12-20); Aspartate Amino Transferase 18 U/L (5-31); Bilirubin Total 0.5 mg/dL (0.0-1.0); Blood Urea Nitrogen 17 mg/dL (9-16); Calcium 9.4 mg/dL (8.4-10.2); Carbon Dioxide 26 mmol/L (22-29); Chloride 108 mmol/L (96-108); Cholesterol 188 mg/dL; Estimated Glomerular Filt Rate > 60; Glucose Fasting 112 mg/dL (60-99); HDL Cholesterol 58 mg/dL; LDL Cholesterol Calculated 114 mg/dl; Potassium 4.3 mmol/L (3.3-5.1); Sodium 143 mmol/L (135-145); Total Protein 6.4 g/dL (6.5-8.0); Triglycerides 81 mg/dL
[2023-07-04 12:02] LABS: Creatinine Urine 120.99 mg/dL
[2023-07-04 12:09] LABS: TSH reflex Free T4 2.18 uIU/mL (0.32-4.0)
== END 2023-07-04 07:20 | disposition home or self-care (01) ==
LOC: HO.HMGCLDS 07:19
PROVIDERS: PCP Internal Medicine; Visit Provider Internal Medicine
DX: E11.9 Type 2 diabetes mellitus without complications (principal)
CPT/HCPCS: 36415; 80053; 80061; 82043; 83036; 84443; 85025

== ENCOUNTER 2023-07-06 10:58 | Outpatient (AMB) | payer MEDICARE, SELFPAY ==
[2023-07-06 11:14] VITALS: BP 120/74; PULSE 84; O2SAT 98; BMI 36.3
--- NOTE | 2023-07-06 11:14 | A.OFFPC_ITS ---
Vital Signs 07/06/23 11:14 Height 5 ft 1 in Weight 192 lb BMI 36.3 BP 120/74 Blood Pressure Location Rt brachial Position Sitting Pulse 84 Pulse Source Pulse Oximeter Pulse Oximetry (%) 98 Oxygen Delivery Method Room Air Intake Visit Reasons: 3m follow up Intake Note: Pt is here today for 3 months follow up visit. Allergies Penicillins Allergy (Unknown, Verified 07/06/23 11:18) pt does not know she was a child Sulfa (Sulfonamide Antibiotics) Allergy (Unknown, Verified 07/06/23 11:18) Unknown Medication List - Last Reconciled 07/06/23 by Milli Colin MD albuterol sulfate 90 mcg/actuation (Ventolin HFA) 2 puffs inhalation Q6H PRN ascorbic acid (vitamin C) 500 mg PO DAILY blood sugar diagnostic (Smart Renouch Ultra Blue Test Strip) As directed cetirizine (Zyrtec) 10 mg PO DAILY cholecalciferol (vitamin D3) 25 mcg PO DAILY viaclujsscu-zrkywxtlu-jxwdlysb 100-62.5-25 mcg (Trelegy Ellipta) 1 ea inhalation DAILY glucosamine HCl 1,500 mg PO DAILY lancets (Autrement (HotelHotel) Delica Lancets) As directed metformin 850 mg PO BID montelukast 10 mg PO DAILY multivitamin (Multiple Vitamins tablet) 1 tab PO DAILY omega 1-tqt-okj-fish oil 1,000 mg (120 mg-180 mg) (Fish Oil) 1 cap PO DAILY omeprazole magnesium (Prilosec OTC) 20 mg PO DAILY [oxygen concentrator with portability including oxygen supplies. 2 liters/min flow rate] psyllium husk (Daily Fiber) 0.4 grams PO BEDTIME PRN triamterene-hydrochlorothiazid 37.5-25 mg 1 tab PO DAILY Tobacco use date assessed: 07/06/23 Fall risk assessment: No Falls in past year Last assessed Fall Risk: 07/06/23 Dental Screening Dental Screen Date: 07/06/23 Did you have a dental visit in the last 12 months?: Yes Did you have a dental problem in the last 6 months where you did not have access to dental care?: No Was dental information given to patient?: Patient has dentist HPI 3m follow up HPI Details Patient presents for the follow-up of type 2 diabetes hypertension COPD, stable on current medications [facility] Medical History Arthritis Colon cancer screening COPD (chronic obstructive pulmonary disease) Dependence on nocturnal oxygen therapy DM (diabetes mellitus) GERD (gastroesophageal reflux disease) GERD (gastroesophageal reflux disease) History of DVT (deep vein thrombosis) Hypoxia Increased urinary frequency Mammogram normal Nocturnal hypoxemia MORRO (obstructive sleep apnea) Osteoarthritis Overweight Palpitations Postmenopausal bleeding Vaginal prolapse Vitamin D deficiency Surgical History H/O colonoscopy History of cataract Hx of cholecystectomy Family History Father ETOH abuse Cirrhosis Mother COPD (chronic obstructive pulmonary disease) Diabetes Brother Substance use disorder Social History Household Members: Spouse Housing: House Alcohol intake: current Alcohol intake frequency: holidays/special occasions only Patient Tobacco Use Status: Former Tobacco user Quit Date: 2001 Smoked: 30 e-Cigarette/Vaping Use: Never Used service: No Current occupational status: retired Sexual orientation: Straight/Heterosexual Gender identity: Female Cognitive needs: No Hearing needs: No Vision needs: Yes Female Reproductive History Menstrual Age of Menarche: 12 Questionnaire Thrive Questionnaire Date Thrive assessed: 03/27/22 AUDIT C Alcohol Use Questionnaire (AUDIT-C) 1. How often do you have a drink containing alcohol?: Never 3. How often do you have six or more drinks on one occasion?: Never Total Score: 0 CLARKE-7 AMB Questionnaire CLARKE-7 Date CLARKE - 7 assessed: 03/27/22 Source: Developed by Drs. Bradly Womack, Luz Shrestha, Bello Euceda and colleagues, with an educational elizabet from [employer]. Review of Systems Const All systems reviewed & are unremarkable except as noted in HPI and below Reports no additional complaints Eyes Reports no additional complaints ENT Reports no additional complaints Card Reports no additional complaints Resp Reports no additional complaints GI Reports no additional complaints Reports no additional complaints Physical exam (Primary Care) Vital Signs: Last Vital Signs Pulse 84 07/06/23 11:14 BP 120/74 07/06/23 11:14 Pulse Ox 98 07/06/23 11:14 Oxygen Delivery Method Room Air 07/06/23 11:14 BMI result Body Mass Index 36.3 Tobacco/Smoking Status: Tobacco use Status Tobacco use date assessed 07/06/23 07/06/23 11:23 Patient Tobacco Use Status Former Tobacco user 07/06/23 11:18 e-Cigarette/Vaping Use Never Used 07/06/23 11:18 Thrive Assessment: Date of Thrive Assessment Date Thrive assessed 03/27/22 07/06/23 11:18 Const General: no acute distress HENMT Mouth: Normal oral and palatal mucosa present Resp Effort & Inspection: normal respiratory effort Auscultation: clear to auscultation bilaterally Cardio Rhythm: regular rhythm Heart sounds: S1 normal heart sound present and S2 normal heart sound present GI Inspection: Yes normal to inspection Palpation (GI): Soft to palpation Percussion: Yes normal to percussion Auscultation: normal bowel sounds Extrem Other: 1+ PITTING EDEMA BILATERALLY Assessment and Plan Assessment & Plan (1) COPD (chronic obstructive pulmonary disease): Comment: Patient has chronic obstructive pulmonary disease, moderately severe. PFT on 02/27/2022 Clinically well controlled with the current regimen. TX: Trelegy 1 inhalation daily. Albuterol HFA 2 puffs Q 6 hours only p.r.n. Had a detailed discussion about COPD and management. Code(s): J44.9 - Chronic obstructive pulmonary disease, unspecified Plan: Continue Trelegy and ProAir as needed (2) DM (diabetes mellitus): Comment: On metformin, A1C 5.9 03/08 Code(s): E11.9 - Type 2 diabetes mellitus without complications Plan: A1c is down to 5.6, ADA diet increase exercise weight loss discussed with the patient. She prefers to continue taking 2 metformin today. Patient follow-up in 6 months with a fasting labs before (3) Overweight: Comment: Patient is trying to lose weight. Has lost about 10 more lb. Will continue to lose more. Code(s): E66.3 - Overweight Plan: Weight loss discussed with the patient (4) Nocturnal hypoxemia: Comment: Significant nocturnal hypoxemia was found on sleep study. Most likely due to her COPD and sleep apnea. Patient being treated with oxygen 2 L/minute at night and doing well. She had also qualified for portable , O2 . Does not use all the times , Code(s): G47.34 - Idiopathic sleep related nonobstructive alveolar hypoventilation Orders: Orders Comprehensive Sikes. Panel Fast 6 Months E11.9 - Type 2 diabetes mellitus without complications, J44.9 - Chronic obstructive pulmonary disease, unspecified, R00.2 - Palpitations, R09.02 - Hypoxemia Hemoglobin A1c 6 Months E11.9 - Type 2 diabetes mellitus without complications, J44.9 - Chronic obstructive pulmonary disease, unspecified, R00.2 - Palpitations, R09.02 - Hypoxemia Lipid Panel 6 Months E11.9 - Type 2 diabetes mellitus without complications, J44.9 - Chronic obstructive pulmonary disease, unspecified, R00.2 - Palpitations, R09.02 - Hypoxemia Microalbumin, Random (w Creat) 6 Months E11.9 - Type 2 diabetes mellitus without complications, J44.9 - Chronic obstructive pulmonary disease, unspecified, R00.2 - Palpitations, R09.02 - Hypoxemia Complete Blood Count Auto Diff 6 Months E11.9 - Type 2 diabetes mellitus without complications, J44.9 - Chronic obstructive pulmonary disease, unspecified, R00.2 - Palpitations, R09.02 - Hypoxemia Coding Level of Care Code Est Pt Level 4 (17998) Diagnoses COPD (chronic obstructive pulmonary disease) J44.9 DM (diabetes mellitus) E11.9 Overweight E66.3 Nocturnal hypoxemia G47.34
== END 2023-07-06 12:14 | disposition home or self-care (01) ==
PROVIDERS: PCP Internal Medicine; Visit Provider Internal Medicine
DX: J44.9 Chronic obstructive pulmonary disease, unspecified (principal); E11.9 Type 2 diabetes mellitus without complications; E66.3 Overweight; G47.34 Idiopathic sleep related nonobstructive alveolar hypoventilation
CPT/HCPCS: 99214

== ENCOUNTER 2023-07-08 10:51 | Outpatient (REF) | payer MEDICARE, SELFPAY ==
--- NOTE | ~2023-07-08 | MM_ITS ---
EXAMINATION: BONE DENSITOMETRY CLINICAL INDICATION: Asymptomatic menopausal state. COMPARISON: Baseline BD dated 10/04/2019. TECHNIQUE: Using a [employer] DXA System (software version: 13.1) manufactured by [email or web address], dual-energy x-ray absorptiometry was performed of the lumbar spine and left hip. The images are of good technical quality. Summary results are attached. FINDINGS: LEFT FEMUR, NECK: Current: BMD 0.831 g/cm2, Z-score -0.1, T-score -1.5, osteopenia. Baseline: BMD 0.829 g/cm2. LEFT FEMUR, TOTAL: Current: BMD 0.867 g/cm2, Z-score 0.0, T-score -1.1, osteopenia, 4.2% increase from baseline (<5% change is not significant). Baseline: BMD 0.832 g/cm2. AP SPINE L1-L2 (excluding L3 and L4): The data of L1-L4 has been changed to exclude the L3 and L4 vertebral bodies, because degenerative change at these levels may cause overestimation of lumbar spine density. Current: BMD 1.239 g/cm2, Z-score 1.6, T-score 0.6, normal, 4.5% increase from baseline (<5% change is not significant). Baseline: BMD 1.186 g/cm2. IDENTIFIED RISK FACTORS: Menopause. HISTORY OF FRACTURE: None listed. MEDICATIONS: Calcium supplements or multivitamin, vitamin D. MM/XR DEXA axial skeleton IMPRESSION: 1. DIAGNOSIS: Osteopenia based on the lowest T-score value of -1.5 in the femoral neck applying World Health Organization criteria. 2. 10-YEAR FRACTURE RISK PREDICTION, FRAX: Major osteoporotic fracture (clinical spine, forearm, hip or shoulder) 10.0%. Hip fracture 1.8%. 3. Treatment Recommendations: NOF guidelines recommend consideration for treatment in postmenopausal women and men age 50 and older presenting with the following: -A hip or vertebral (clinical or morphometric) fracture. -T-score less than or equal to -2.5 at the femoral neck or spine after appropriate evaluation to exclude secondary causes. -Low bone mass at the hip or spine and a 10-year fracture probability by FRAX of greater than or equal to 3% for hip fracture or greater than or equal to 20% for major osteoporotic fracture based on the [place] adapted WHO algorithm. 4. Other Recommendations: All treatment decisions require clinical judgment and consideration of individual patient factors, including patient preferences, comorbidities, previous drug use, risk factors not captured in the FRAX model (e.g. frailty, falls, vitamin D deficiency, increased bone turnover, interval significant decline in bone density) and possible under or overestimation of fracture risk by FRAX. Additional medical evaluation for secondary cause of low bone mineral density may be appropriate. FUTURE SCAN RECOMMENDATION: People with diagnosed cases of osteoporosis or at high risk for fracture should have regular bone mineral density tests. For patients eligible for Medicare, routine testing is allowed once every 2 years. The testing frequency can be increased to one year for patients who have rapidly progressing disease, those who are receiving or discontinuing medical therapy to restore bone mass, or have additional risk factors.
== END 2023-07-08 10:52 | disposition home or self-care (01) ==
LOC: HO.MAMMO 10:51
PROVIDERS: PCP Internal Medicine; Visit Provider Obstetrics & Gynecology
DX: Z13.820 Encounter for screening for osteoporosis (principal); Z78.0 Asymptomatic menopausal state
CPT/HCPCS: 77080

== ENCOUNTER → 2023-07-08 11:00 | Outpatient (BNV) | payer MEDICARE, SELFPAY | PROVIDERS: PCP Internal Medicine; Visit Provider Radiology Diagnostic Radiology | DX: M85.89 Other specified disorders of bone density and structure, multiple sites (principal) | CPT/HCPCS: 77080 ==

== ENCOUNTER 2023-08-13 09:41 | Outpatient (AMB) | payer MEDICARE, SELFPAY ==
[2023-08-13 09:56] VITALS: BP 124/70; BMI 36.3
--- NOTE | 2023-08-13 09:56 | MHC.OFFVIS ---
Intake Vital Signs 08/13/23 09:56 Height 5 ft 1 in Weight 192 lb BMI 36.3 BP 124/70 Intake Visit Reasons: dexa follow up Director Of Rotc Required: No Allergies Penicillins Allergy (Unknown, Verified 08/13/23 09:57) pt does not know she was a child Sulfa (Sulfonamide Antibiotics) Allergy (Unknown, Verified 08/13/23 09:57) Unknown Is last menstrual period known: No Post menopausal: Yes Patient : No HPI HPI Comments History of Present Illness Details The patient is presenting for follow up regarding DEXA scan results. T score @ spine and femoral Neck respectively were=-1.5 /not computer and 10 year FRAX risk = 10/1.8% for severe osteoporosis and fracture. [facility] Medical History Arthritis History of DVT (deep vein thrombosis) GERD (gastroesophageal reflux disease) Dependence on nocturnal oxygen therapy Postmenopausal bleeding Vaginal prolapse Increased urinary frequency Vitamin D deficiency MORRO (obstructive sleep apnea) Nocturnal hypoxemia Hypoxia Palpitations Overweight Mammogram normal Colon cancer screening DM (diabetes mellitus) Osteoarthritis GERD (gastroesophageal reflux disease) COPD (chronic obstructive pulmonary disease) Surgical History Hx of cholecystectomy History of cataract H/O colonoscopy Family History Father ETOH abuse Cirrhosis Mother COPD (chronic obstructive pulmonary disease) Diabetes Brother Substance use disorder Social History Household Members: Spouse Housing: House Alcohol intake: current Alcohol intake frequency: holidays/special occasions only Patient Tobacco Use Status: Former Tobacco user Quit Date: 2001 Years Smoked: 30 e-Cigarette/Vaping Use: Never Used Patient : No service: No Current occupational status: retired Sexual orientation: Straight/Heterosexual Gender identity: Female Cognitive needs: No Hearing needs: No Vision needs: Yes Female Reproductive History Menstrual Age of Menarche: 12 control method: none Date of last pap smear: 07/04/10 (negative) History of abnormal pap smear: No Date of Mammogram: 01/22/23 Date of last Bone Density Screenin07/08/23 Review of Systems Const All systems reviewed & are unremarkable except as noted in HPI and below Reports as per HPI and Reports no additional complaints GI Reports no additional complaints Reports no additional complaints Physical Exam Vital Signs: Last Vital Signs BP 124/70 08/13/23 09:56 BMI result Body Mass Index 36.3 Assessment & Plan Assessment & Plan (1) Osteopenia: Code(s): M85.80 - Other specified disorders of bone density and structure, unspecified site Plan: Discussed with the patient the DEXA results and FRAX risk. FRAX risk and T score showed no evidence of osteoporosis. Discussed with the patient all the options for osteoporosis prevention including lifestyle modifications including Ca+D supplements 1200 mg po qd/800 MIU, Weight bearing exercises and proteine supplements. The patient verbalized understanding and agreed plan will repeat DEXA in 2 years. Coding Level of Care Code Est Pt Level 3 (07249) Diagnoses Osteopenia M85.80
== END 2023-08-13 11:27 | disposition home or self-care (01) ==
PROVIDERS: PCP Internal Medicine; Visit Provider Obstetrics & Gynecology
DX: M85.80 Other specified disorders of bone density and structure, unspecified site (principal)
CPT/HCPCS: 99213

== ENCOUNTER → 2023-08-13 09:41 | Outpatient (BNVA) | payer MEDICARE, SELFPAY | PROVIDERS: PCP Internal Medicine; Visit Provider Obstetrics & Gynecology | DX: M85.80 Other specified disorders of bone density and structure, unspecified site (principal) | CPT/HCPCS: 99212 ==

== ENCOUNTER 2023-08-25 10:24 | Outpatient (AMB) | payer MEDICARE, SELFPAY ==
[2023-08-25 10:56] VITALS: BP 148/60; PULSE 95; O2SAT 95; BMI 35.5
--- NOTE | 2023-08-25 10:56 | MHC.OFFVIS ---
Intake Vital Signs 08/25/23 10:56 Height 5 ft 1 in Weight 188 lb BMI 35.5 BP 148/60 H Blood Pressure Location Lt brachial Position Sitting Pulse 95 Pulse Source Pulse Oximeter Pulse Oximetry (%) 95 Oxygen Delivery Method Room Air Intake Visit Reasons: COPD Intake Note: pt is here for follow up and states she is using her oxygen with exertion and at night time. Bilingual Teacher Required: No Allergies Penicillins Allergy (Unknown, Verified 08/25/23 11:09) pt does not know she was a child Sulfa (Sulfonamide Antibiotics) Allergy (Unknown, Verified 08/25/23 11:09) Unknown Medication List - Last Reconciled 08/25/23 by Rosemary Masterson MD albuterol sulfate 90 mcg/actuation (Ventolin HFA) 2 puffs inhalation Q6H PRN ascorbic acid (vitamin C) 500 mg PO DAILY blood sugar diagnostic ([place] Ultra Blue Test Strip) As directed calcium carbonate (Calcium) 1,200 mg PO QDAY cetirizine (Zyrtec) 10 mg PO DAILY cholecalciferol (vitamin D3) 25 mcg PO DAILY gmyrmnkmixt-ygenvzphg-euqhtjoh 100-62.5-25 mcg (Trelegy Ellipta) 1 ea PO DAILY glucosamine HCl 1,500 mg PO DAILY lancets (HibernaTouch Delica Lancets) As directed metformin 500 mg PO BID montelukast 10 mg PO DAILY multivitamin (Multiple Vitamins tablet) 1 tab PO DAILY omega 0-qsv-adj-fish oil 1,000 mg (120 mg-180 mg) (Fish Oil) 1 cap PO DAILY omeprazole magnesium (Prilosec OTC) 20 mg PO DAILY [oxygen concentrator with portability including oxygen supplies. 2 liters/min flow rate] psyllium husk (Daily Fiber) 0.4 grams PO BEDTIME PRN triamterene-hydrochlorothiazid 37.5-25 mg 1 tab PO DAILY Do you need a note to return to daycare/school/sports/work: No HPI COPD HPI Details THIS 73 YEARS OLD VERY PLEASANT FEMALE IS HERE FOR FOLLOW-UP AFTER 6 MONTHS. HER CHRONIC OBSTRUCTIVE PULMONARY DISEASE STATUS HAS REMAINED VERY STABLE AND WELL CONTROLLED. SHE HAS HAD NO. RESPIRATORY INFECTION OR ANY ACUTE EXACERBATION THE ONLY PROBLEM IS SHE DOES GET SHORT OF BREATH WHEN SHE WALKS OUTDOORS, BUT NOT IN THE HOUSE SHE HAS ONLY OCCASIONAL COUGH. DENIES ANY BOUTS OF WHEEZING. USES TRELEGY EVERY DAY, AND ALBUTEROL ONLY ONCE IN A WHILE. [facility] Medical History Arthritis History of DVT (deep vein thrombosis) GERD (gastroesophageal reflux disease) Dependence on nocturnal oxygen therapy Postmenopausal bleeding Vaginal prolapse Increased urinary frequency Vitamin D deficiency MORRO (obstructive sleep apnea) Nocturnal hypoxemia Hypoxia Palpitations Overweight Mammogram normal Colon cancer screening DM (diabetes mellitus) Osteoarthritis GERD (gastroesophageal reflux disease) COPD (chronic obstructive pulmonary disease) Surgical History Hx of cholecystectomy History of cataract H/O colonoscopy Family History Father ETOH abuse Cirrhosis Mother COPD (chronic obstructive pulmonary disease) Diabetes Brother Substance use disorder Social History Household Members: Spouse Housing: House Alcohol intake: current Alcohol intake frequency: holidays/special occasions only Patient Tobacco Use Status: Former Tobacco user Quit Date: 2001 Years Smoked: 30 e-Cigarette/Vaping Use: Never Used service: No Current occupational status: retired Sexual orientation: Straight/Heterosexual Gender identity: Female Cognitive needs: No Hearing needs: No Vision needs: Yes Female Reproductive History Menstrual Age of Menarche: 12 Review of Systems Const All systems reviewed & are unremarkable except as noted in HPI and below Eyes Reports no additional complaints ENT Reports nasal congestion (Mild intermittent) Card Denies chest pain, Denies irregular heart rhythm and Reports leg edema (Only mild dependent edema when she is on her feet) Resp Reports as per HPI GI Reports no additional complaints Reports no additional complaints Musc Reports no additional complaints Skin/Breast Reports system reviewed and no additional complaints, except as documented Neuro Reports no additional complaints Psych Reports no additional complaints Physical Exam Vital Signs: Last Vital Signs Pulse 95 08/25/23 10:56 BP 148/60 H 08/25/23 10:56 Pulse Ox 95 08/25/23 10:56 Oxygen Delivery Method Room Air 08/25/23 10:56 BMI result Body Mass Index 35.5 Const General: healthy appearing (EXCEPT FOR BEING OVERWEIGHT), comfortable, no acute distress, alert and awake Orientation/consciousness: patient oriented x3 HEENT Head: Yes normal to inspection General nose exam: No nasal polyps present and No nasal discharge present Face and sinus: Yes sinuses nontender Mouth: oropharynx normal Throat: Yes posterior oropharynx normal Eyes General: appearance normal, both eyes and all related structures Neck Neck: Yes normal visual inspection, Yes no lymphadenopathy, Yes trachea midline and Yes no JVD Thyroid: Thyroid normal Chest Chest palpation & inspection: normal inspection of the chest, normal palpation of entire chest wall and no tenderness Resp Other: PERCUSSION NOTE RESONANT, BREATH SOUNDS SLIGHTLY DECREASED OVER THE BASILAR AREAS. LUNGS ARE CLEAR .NO WHEEZES RHONCHI OR CREPITATIONS ARE HEARD. Cardio Palpation: normal PMI Rate: regular rate Rhythm: regular rhythm Heart sounds: no gallops and no murmurs GI Palpation (GI): Soft to palpation, nontender, No hepatosplenomegaly present and no masses Auscultation: normal bowel sounds Back/Spine/Pelvis Thoracic/Lumbar Spine: thoracic and lumbar spine normal to inspection Skin General skin exam: no rashes or lesions noted Neuro General: patient oriented x3 and no focal motor deficits Cranial nerves: Yes CN's II-XII intact bilaterally Extrem General: Yes normal to inspection, Yes no clubbing, cyanosis or edema and Yes no calf tenderness Psych Appearance: grossly normal and well kempt Speech and movement: Normal speech and movement present Assessment & Plan Assessment & Plan (1) COPD (chronic obstructive pulmonary disease): Comment: Patient has chronic obstructive pulmonary disease, moderately severe. PFT on 02/27/2022 Clinically well controlled with the current regimen. TX: Trelegy 1 inhalation daily. Albuterol HFA 2 puffs Q 6 hours only p.r.n. Code(s): J44.9 - Chronic obstructive pulmonary disease, unspecified (2) MORRO (obstructive sleep apnea): Comment: As per sleep study her sleep apnea was only mild, and more in his supine position. Being treated with conservative measures and is doing well. 1- Weight reduction effort to continue . 2- position therapy and patient is instructed to avoid sleeping in supine position. Code(s): G47.33 - Obstructive sleep apnea (adult) (pediatric) (3) Nocturnal hypoxemia: Comment: Significant nocturnal hypoxemia was found on sleep study. Most likely due to her COPD and sleep apnea. Patient being treated with oxygen 1.5 L/minute at night and doing well. She had also qualified for portable , O2 . Does not use all the times , Code(s): G47.34 - Idiopathic sleep related nonobstructive alveolar hypoventilation Coding Level of Care Code Est Pt Level 3 (64839) Diagnoses COPD (chronic obstructive pulmonary disease) J44.9 MORRO (obstructive sleep apnea) G47.33 Nocturnal hypoxemia G47.34
== END 2023-08-25 11:17 | disposition home or self-care (01) ==
PROVIDERS: PCP Internal Medicine; Visit Provider Internal Medicine
DX: J44.9 Chronic obstructive pulmonary disease, unspecified (principal); G47.33 Obstructive sleep apnea (adult) (pediatric); G47.34 Idiopathic sleep related nonobstructive alveolar hypoventilation
CPT/HCPCS: 99213

== ENCOUNTER → 2023-08-25 10:24 | Outpatient (BNVA) | payer MEDICARE, SELFPAY | PROVIDERS: Visit Provider Internal Medicine | DX: J44.9 Chronic obstructive pulmonary disease, unspecified (principal); G47.33 Obstructive sleep apnea (adult) (pediatric); G47.34 Idiopathic sleep related nonobstructive alveolar hypoventilation | CPT/HCPCS: 99212 ==

== ENCOUNTER 2024-01-13 10:11 | Outpatient (REF) | payer MEDICARE, SELFPAY ==
[2024-01-13 13:36] LABS: MANUAL DIFF FLAG NO
[2024-01-13 13:56] LABS: Basophils Absolute Auto 0.1 X10*3/uL (0.0-0.2); Basophils Percent Auto 0.9 % (0-2); Eosinophils Absolute Auto 0.1 X10*3/uL (0.0-0.4); Eosinophils Percent Auto 1.4 % (0-4); Hematocrit 39.1 % (37.0-47.0); Hemoglobin 13.2 g/dl (12.0-16.0); Imm Gran Abs Auto 0.03 X10*3/uL (0.00-0.03); Imm Gran Pct Auto 0.4 % (0.0-0.4); Lymphocytes Absolute Auto 2.7 X10*3/uL (1.2-4.9); Lymphocytes Percent Auto 33.6 % (20-40); Mean Corpuscular HGB Conc 33.8 g/dl (31.0-35.0); Mean Corpuscular Hemoglobin 32.1 pg (27.0-33.0); Mean Corpuscular Volume 95.1 fL (80.0-98.0); Mean Platelet Volume 10.4 fL (9.4-12.3); Monocytes Absolute Auto 0.5 X10*3/uL (0.1-1.2); Monocytes Percent Auto 6.7 % (2-11); Neutrophils Absolute Auto 4.5 x10*3/uL (2.0-8.3); Platelet Count 305 X10*3/uL (160-400); Red Blood Count 4.11 X10*6/uL (4.20-5.50)
[2024-01-13 14:24] LABS: Alanine Aminotransferase 18 U/L (0-31); Albumin Level 3.8 g/dL (3.5-5.0); Alkaline Phosphatase 79 U/L (39-117); Anion Gap 11 (12-20); Aspartate Amino Transferase 19 U/L (5-31); Bilirubin Total 0.6 mg/dL (0.0-1.0); Blood Urea Nitrogen 19 mg/dL (9-16); Calcium 9.6 mg/dL (8.4-10.2); Carbon Dioxide 30 mmol/L (22-29); Chloride 100 mmol/L (96-108); Cholesterol 198 mg/dL (<200); Estimated Glomerular Filt Rate > 60; Glucose Fasting 108 mg/dL (60-99); HDL Cholesterol 64 mg/dL (>40); LDL Cholesterol Calculated 114 mg/dL (<100); Potassium 3.7 mmol/L (3.3-5.1); Sodium 137 mmol/L (135-145); Total Protein 6.8 g/dL (6.5-8.0); Triglycerides 100 mg/dL (<150)
[2024-01-13 14:40] LABS: Creatinine Urine 64.25 mg/dL; Microalbumin Urine < 5.0 mg/L
[2024-01-13 15:13] LABS: Estimated Average Glucose 120 mg/dL; Hemoglobin A1c % 5.8 % (<6.0)
== END 2024-01-13 10:12 | disposition home or self-care (01) ==
LOC: HO.HMGCLDS 10:11
PROVIDERS: PCP Internal Medicine; Visit Provider Internal Medicine
DX: E11.9 Type 2 diabetes mellitus without complications (principal); R00.2 Palpitations; R09.02 Hypoxemia; J44.9 Chronic obstructive pulmonary disease, unspecified
CPT/HCPCS: 36415; 80053; 80061; 82043; 82570; 83036; 85025

== ENCOUNTER 2024-01-15 12:44 | Outpatient (AMB) | payer MEDICARE, SELFPAY ==
--- NOTE | 2024-01-15 12:51 | A.OFFPC_ITS ---
Vital Signs 01/15/24 13:11 Height 5 ft 1 in Weight 189 lb BMI 35.7 BP 128/68 Blood Pressure Location Lt brachial Position Sitting Pulse 94 Pulse Source Pulse Oximeter Pulse Oximetry (%) 95 Oxygen Delivery Method Room Air Intake Visit Reasons: PE, 6 month fu Intake Note: Pt is here today for PE. Allergies Penicillins Allergy (Unknown, Verified 01/15/24 13:15) pt does not know she was a child Sulfa (Sulfonamide Antibiotics) Allergy (Unknown, Verified 01/15/24 13:15) Unknown Tobacco use date assessed: 01/15/24 Fall risk assessment: No Falls in past year Last assessed Fall Risk: 01/15/24 Dental Screening Dental Screen Date: 01/15/24 Did you have a dental visit in the last 12 months?: Yes Did you have a dental problem in the last 6 months where you did not have access to dental care?: No Was dental information given to patient?: Patient has dentist HPI PE, 6 month fu HPI Details Patient presents for physical. COPD is stable on Trelegy and patient has been using supplemental O2 at night and while exercising. Patient reports increasing shortness of breath with exercise and noticed increased resting heart rate to about 100. She denies palpitations chest pain. Type 2 diabetes is controlled on metformin COUNTS INCLUDE 234 BEDS AT THE [facility] Medical History (Updated 01/15/24 @ 15:01 by Milli Colin MD) Annual physical exam Arthritis History of DVT (deep vein thrombosis) GERD (gastroesophageal reflux disease) Dependence on nocturnal oxygen therapy Postmenopausal bleeding Vaginal prolapse Increased urinary frequency Vitamin D deficiency MORRO (obstructive sleep apnea) Nocturnal hypoxemia Hypoxia Palpitations Overweight Mammogram normal Colon cancer screening DM (diabetes mellitus) Osteoarthritis GERD (gastroesophageal reflux disease) COPD (chronic obstructive pulmonary disease) Surgical History Hx of cholecystectomy History of cataract H/O colonoscopy Family History Father ETOH abuse Cirrhosis Mother COPD (chronic obstructive pulmonary disease) Diabetes Brother Substance use disorder Social History Household Members: Spouse Housing: House Alcohol intake: current Alcohol intake frequency: holidays/special occasions only Patient Tobacco Use Status: Former Tobacco user Quit Date: 2001 Years Smoked: 30 e-Cigarette/Vaping Use: Never Used service: No Current occupational status: retired Sexual orientation: Straight/Heterosexual Gender identity: Female Cognitive needs: No Hearing needs: No Vision needs: Yes Female Reproductive History Menstrual Age of Menarche: 12 Questionnaire PHQ-9 Over the last 2 weeks, how often have you been bothered by any of the following problems? 1. Little interest or pleasure in doing things: not at all 2. Feeling down, depressed, or hopeless: not at all 3. Trouble falling or staying asleep, or sleeping too much: not at all 4. Feeling tired or having little energy: not at all 5. Poor appetite or overeating: not at all 6. Feeling bad about yourself - or that you are a failure or have let yourself or your family down: not at all 7. Trouble concentrating on things, such as reading the newspaper or watching television: not at all 8. Moving or speaking so slowly that other people could have noticed. Or the opposite - being so fidgety or restless that you have been moving around a lot more than usual: not at all 9. Thoughts that you would be better off or of hurting yourself in some way: not at all Total score: 0 Depression Screening Interpretation: Negative Depression Screening Done: Yes Source: Developed by Drs. Bradly Womack, Luz Shrestha, Bello Euceda and colleagues, with an educational elizabet from [employer]. Thrive Questionnaire Date Thrive assessed: 01/15/24 I am a: Patient What is your living situation today?: I have a steady place to live Within the past 12 months, did the food you bought not last and you didn't have the money to get more?: Never true Within the past 12 months, did you worry whether your food would run out before you got money to buy more?: Never true Do you have trouble paying for medicines?: No Do you have trouble getting transportation to medical appointments?: No Do you have trouble paying your heating and electricity bill?: No Do you have trouble taking care of your child, family member or friend?: No Do you have trouble with day-to-day activities such as bathing, preparing meals, shopping, managing finances, etc.?: No Are you currently unemployed and looking for a job?: No Are you interested in more education?: No Please select the resources that you would like help with: None Currently or been in a relationship where the following occur: no concerns reported THRIVE Score: 0 AUDIT C Alcohol Use Questionnaire (AUDIT-C) 1. How often do you have a drink containing alcohol?: Never 3. How often do you have six or more drinks on one occasion?: Never Total Score: 0 CLARKE-7 AMB Questionnaire CLARKE-7 Date CLARKE - 7 assessed: 01/15/24 Feeling nervous, anxious, or on edge: 0 = Not at all Not being able to stop or control worryin = Not at all Worrying too much about different things: 0 = Not at all Trouble relaxin = Not at all Being so restless that it is hard to sit still: 0 = Not at all Becoming easily annoyed or irritable: 0 = Not at all Feeling afraid as if something awful might happen: 0 = Not at all Total CLARKE-7 score (0-4 normal; 5-9 mild; 10-14 moderate; 15-21 severe): 0 Source: Developed by Drs. Bradly Womack, Luz Shrestha, Bello Euceda and colleagues, with an educational elizabet from [employer]. Review of Systems Const All systems reviewed & are unremarkable except as noted in HPI and below Eyes Reports no additional complaints ENT Reports no additional complaints Card Reports no additional complaints Resp Reports no additional complaints GI Reports no additional complaints Physical exam (Primary Care) Vital Signs: Last Vital Signs Pulse 94 01/15/24 13:11 BP 128/68 01/15/24 13:11 Pulse Ox 95 01/15/24 13:11 Oxygen Delivery Method Room Air 01/15/24 13:11 BMI result Body Mass Index 35.7 Tobacco/Smoking Status: Tobacco use Status Tobacco use date assessed 01/15/24 01/15/24 13:18 Patient Tobacco Use Status Former Tobacco user 01/15/24 12:53 e-Cigarette/Vaping Use Never Used 01/15/24 12:53 PHQ-9: PHQ-9 Score PHQ-9: Total score 0 01/15/24 13:20 Depression Screening Interpretation: Negative Thrive Assessment: Date of Thrive Assessment Date Thrive assessed 01/15/24 01/15/24 13:20 Currently or been in a relationship where the following occur: no concerns reported Const General: no acute distress HENMT Head: Yes normal to inspection Ears: hearing grossly normal bilaterally Face and sinus: Yes normal facial exam Mouth: Normal oral and palatal mucosa present Eyes General: appearance normal, both eyes and all related structures Neck Neck: Yes no lymphadenopathy and Yes supple Resp Effort & Inspection: normal respiratory effort Auscultation: clear to auscultation bilaterally Cardio Rhythm: regular rhythm Heart sounds: S1 normal heart sound present and S2 normal heart sound present GI Inspection: Yes normal to inspection Palpation (GI): Soft to palpation Percussion: Yes normal to percussion Auscultation: normal bowel sounds Assessment and Plan Assessment & Plan (1) DM (diabetes mellitus): Comment: On metformin, A1C 5.9 03/08 Code(s): E11.9 - Type 2 diabetes mellitus without complications Plan: A1c is 5.8, continue ADA diet metformin and regular physical activity (2) COPD (chronic obstructive pulmonary disease): Comment: Patient has chronic obstructive pulmonary disease, moderately severe. PFT on 02/27/2022 Clinically well controlled with the current regimen. TX: Trelegy 1 inhalation daily. Albuterol HFA 2 puffs Q 6 hours only p.r.n. Code(s): J44.9 - Chronic obstructive pulmonary disease, unspecified Plan: Continue current treatment follow-up with pulmonology (3) Colon cancer screening: Comment: negative cologuard 2018 Code(s): Z12.11 - Encounter for screening for malignant neoplasm of colon Plan: Cologuard ordered (4) Nocturnal hypoxemia: Comment: Significant nocturnal hypoxemia was found on sleep study. Most likely due to her COPD and sleep apnea. Patient being treated with oxygen 1.5 L/minute at night and doing well. She had also qualified for portable , O2 . Does not use all the times , Code(s): G47.34 - Idiopathic sleep related nonobstructive alveolar hypoventilation Plan: Continue supplemental O2 (5) Annual physical exam: Code(s): Z00.00 - Encounter for general adult medical examination without abnormal findings Plan: Well-balanced diet regular exercise weight loss discussed with the patient. (6) Tachycardia: Comment: sinus, Echo 2022 normal ejection fraction, no significant wall motion abnormalities normal valves, no pulmonary hypertension Code(s): R00.0 - Tachycardia, unspecified Plan: Bisoprolol 2.5 mg q.h.s. will be started the patient will follow-up in 2 months Orders: Referrals Cologuard Test Z12.11 - Encounter for screening for malignant neoplasm of colon, Z12.12 - Encounter for screening for malignant neoplasm of rectum Coding Level of Care Code Est Pt Prev Care >65y(02498) Diagnoses DM (diabetes mellitus) E11.9 COPD (chronic obstructive pulmonary disease) J44.9 Colon cancer screening Z12.11 Nocturnal hypoxemia G47.34 Annual physical exam Z00.00 Tachycardia R00.0
[2024-01-15 13:11] VITALS: BP 128/68; PULSE 94; O2SAT 95; BMI 35.7
== END 2024-01-15 14:03 | disposition home or self-care (01) ==
PROVIDERS: PCP Internal Medicine; Visit Provider Internal Medicine
DX: E11.9 Type 2 diabetes mellitus without complications (principal); J44.9 Chronic obstructive pulmonary disease, unspecified; Z12.11 Encounter for screening for malignant neoplasm of colon; G47.34 Idiopathic sleep related nonobstructive alveolar hypoventilation; Z00.00 Encounter for general adult medical examination without abnormal findings; R00.0 Tachycardia, unspecified
CPT/HCPCS: 99397

== ENCOUNTER 2024-01-29 10:46 | Outpatient (REF) | payer MEDICARE, SELFPAY | END 2024-01-29 10:47 | disposition home or self-care (01) | LOC: HO.MAMMO 10:46 | PROVIDERS: PCP Internal Medicine; Visit Provider Internal Medicine | DX: Z12.31 Encounter for screening mammogram for malignant neoplasm of breast (principal) | CPT/HCPCS: 77063; 77067 ==

== ENCOUNTER → 2024-01-29 11:00 | Outpatient (BNV) | payer MEDICARE, SELFPAY | PROVIDERS: PCP Internal Medicine; Visit Provider Radiology Diagnostic Radiology | DX: Z12.31 Encounter for screening mammogram for malignant neoplasm of breast (principal) | CPT/HCPCS: 77063; 77067 ==

== ENCOUNTER 2024-02-23 10:53 | Outpatient (AMB) | payer MEDICARE, SELFPAY ==
[2024-02-23 11:03] VITALS: BP 124/70; PULSE 72; O2SAT 93; BMI 37.1
--- NOTE | 2024-02-23 11:03 | A.OFFVIS_ITS ---
Intake Vital Signs 02/23/24 11:03 Height 5 ft 1 in Weight 196 lb 3.382 oz BMI 37.1 BP 124/70 Blood Pressure Location Lt brachial Position Sitting Pulse 72 Pulse Source Pulse Oximeter Pulse Oximetry (%) 93 Oxygen Delivery Method Room Air Intake Visit Reasons: COPD Intake Note: pt is here for follow up and states she is doing well, using daytime oxygen as needed and night time on 1/5-2 liters. She states she is doing well. Event Attendant Required: No Allergies Penicillins Allergy (Unknown, Verified 02/23/24 11:19) pt does not know she was a child Sulfa (Sulfonamide Antibiotics) Allergy (Unknown, Verified 02/23/24 11:19) Unknown Medication List - Last Reconciled 02/23/24 by Rosemary Masterson MD albuterol sulfate 90 mcg/actuation (Ventolin HFA) 2 puffs inhalation Q6H PRN ascorbic acid (vitamin C) 500 mg PO DAILY bisoprolol fumarate 2.5 mg (1/2 x 5 mg) PO DAILY blood sugar diagnostic ([place] Ultra Blue Test Strip) As directed calcium carbonate (Calcium) 1,200 mg PO QDAY cetirizine (Zyrtec) 10 mg PO DAILY cholecalciferol (vitamin D3) 25 mcg PO DAILY nfxuslwmjei-qprzeqaxi-hhugbbmu 100-62.5-25 mcg (Trelegy Ellipta) 1 ea PO DAILY 30 days glucosamine HCl 1,500 mg PO DAILY lancets (OneTouch Delica Lancets) As directed metformin 500 mg PO BID multivitamin (Multiple Vitamins tablet) 1 tab PO DAILY omega 6-ypr-eaj-fish oil 1,000 mg (120 mg-180 mg) (Fish Oil) 1 cap PO DAILY omeprazole magnesium (Prilosec OTC) 20 mg PO DAILY [oxygen concentrator with portability including oxygen supplies. 2 liters/min flow rate] psyllium husk (Daily Fiber) 0.4 grams PO BEDTIME PRN triamterene-hydrochlorothiazid 37.5-25 mg 1 tab PO DAILY Do you need a note to return to daycare/school/sports/work: No HPI COPD HPI Details Stefania , 73 years old female is here for 6 months follow-up. She is a case of moderately severe obstructive airway disorder with minimal hypoxemia. She has been very stable during the past 6 months,. Without any acute exacerbation She uses Trelegy once a day, and needs to use Ventolin inhaler only once in a while. Uses oxygen 1.5 L/minute at night, she does have portable cylinders to use during the daytime, but uses only if she has to do some long distance walking or goes out for shopping. Overall she has been well in stable. [facility] Medical History Annual physical exam Arthritis History of DVT (deep vein thrombosis) GERD (gastroesophageal reflux disease) Dependence on nocturnal oxygen therapy Postmenopausal bleeding Vaginal prolapse Increased urinary frequency Vitamin D deficiency MORRO (obstructive sleep apnea) Nocturnal hypoxemia Hypoxia Palpitations Overweight Mammogram normal Colon cancer screening DM (diabetes mellitus) Osteoarthritis GERD (gastroesophageal reflux disease) COPD (chronic obstructive pulmonary disease) Surgical History Hx of cholecystectomy History of cataract H/O colonoscopy Family History Father ETOH abuse Cirrhosis Mother COPD (chronic obstructive pulmonary disease) Diabetes Brother Substance use disorder Social History Household Members: Spouse Housing: House Alcohol intake: current Alcohol intake frequency: holidays/special occasions only Patient Tobacco Use Status: Former Tobacco user Quit Date: 2001 Years Smoked: 30 e-Cigarette/Vaping Use: Never Used service: No Current occupational status: retired Sexual orientation: Straight/Heterosexual Gender identity: Female Cognitive needs: No Hearing needs: No Vision needs: Yes Female Reproductive History Menstrual Age of Menarche: 12 Review of Systems Const All systems reviewed & are unremarkable except as noted in HPI and below Eyes Reports no additional complaints ENT Reports nasal congestion (Mild intermittent) Card Denies chest pain, Denies irregular heart rhythm and Reports leg edema (Only mild dependent edema when she is on her feet) Resp Reports as per HPI GI Reports no additional complaints Reports no additional complaints Musc Reports no additional complaints Skin/Breast Reports system reviewed and no additional complaints, except as documented Neuro Reports no additional complaints Psych Reports no additional complaints Physical Exam Vital Signs: Last Vital Signs Pulse 72 02/23/24 11:03 BP 124/70 02/23/24 11:03 Pulse Ox 93 02/23/24 11:03 Oxygen Delivery Method Room Air 02/23/24 11:03 BMI result Body Mass Index 37.1 Const General: healthy appearing (EXCEPT FOR BEING OVERWEIGHT), comfortable, no acute distress, alert and awake Orientation/consciousness: patient oriented x3 HEENT Head: Yes normal to inspection General nose exam: No nasal polyps present and No nasal discharge present Face and sinus: Yes sinuses nontender Mouth: oropharynx normal Throat: Yes posterior oropharynx normal Eyes General: appearance normal, both eyes and all related structures Neck Neck: Yes normal visual inspection, Yes no lymphadenopathy, Yes trachea midline and Yes no JVD Thyroid: Thyroid normal Chest Chest palpation & inspection: normal inspection of the chest, normal palpation of entire chest wall and no tenderness Resp Other: PERCUSSION NOTE RESONANT, BREATH SOUNDS SLIGHTLY DECREASED OVER THE BASILAR AREAS. LUNGS ARE CLEAR .NO WHEEZES RHONCHI OR CREPITATIONS ARE HEARD. Cardio Palpation: normal PMI Rate: regular rate Rhythm: regular rhythm Heart sounds: no gallops and no murmurs GI Palpation (GI): Soft to palpation, nontender, No hepatosplenomegaly present and no masses Auscultation: normal bowel sounds Back/Spine/Pelvis Thoracic/Lumbar Spine: thoracic and lumbar spine normal to inspection Skin General skin exam: no rashes or lesions noted Neuro General: patient oriented x3 and no focal motor deficits Cranial nerves: Yes CN's II-XII intact bilaterally Extrem General: Yes normal to inspection, Yes no clubbing, cyanosis or edema and Yes no calf tenderness Psych Appearance: grossly normal and well kempt Speech and movement: Normal speech and movement present Assessment & Plan Assessment & Plan (1) COPD (chronic obstructive pulmonary disease): Comment: Patient has chronic obstructive pulmonary disease, moderately severe. PFT on 02/27/2022 Clinically well controlled with the current regimen. Code(s): J44.9 - Chronic obstructive pulmonary disease, unspecified Plan: TX: Trelegy 1 inhalation daily. Albuterol HFA 2 puffs Q 6 hours only p.r.n. (2) Nocturnal hypoxemia: Comment: Significant nocturnal hypoxemia was found on sleep study. Most likely due to her COPD and sleep apnea. Patient being treated with oxygen 1.5 L/minute at night and doing well. She had also qualified for portable , O2 . Does not use all the times , Code(s): G47.34 - Idiopathic sleep related nonobstructive alveolar hypoventilation Plan: Advised to continue using oxygen 1.5 L/minute at night, with continuous flow mode. Use portable O2, with conservative mode, during the daytime if she has to do some physical work or go outdoors for more than half an hour. (3) MORRO (obstructive sleep apnea): Comment: As per sleep study her sleep apnea was only mild, and more in his supine position. Being treated with conservative measures and is doing well. Code(s): G47.33 - Obstructive sleep apnea (adult) (pediatric) Plan: CONTINUE 1- Weight reduction effort to lose about 10-15 lb of weight. 2- position therapy and patient is instructed to avoid sleeping in supine position. Coding Level of Care Code Est Pt Level 3 (38104) Diagnoses COPD (chronic obstructive pulmonary disease) J44.9 Nocturnal hypoxemia G47.34 MORRO (obstructive sleep apnea) G47.33
== END 2024-02-23 11:31 | disposition home or self-care (01) ==
PROVIDERS: PCP Internal Medicine; Visit Provider Internal Medicine
DX: J44.9 Chronic obstructive pulmonary disease, unspecified (principal); G47.34 Idiopathic sleep related nonobstructive alveolar hypoventilation; G47.33 Obstructive sleep apnea (adult) (pediatric)
CPT/HCPCS: 99213

== ENCOUNTER → 2024-02-23 10:53 | Outpatient (BNVA) | payer MEDICARE, SELFPAY | PROVIDERS: PCP Internal Medicine; Visit Provider Internal Medicine | DX: J44.9 Chronic obstructive pulmonary disease, unspecified (principal); G47.33 Obstructive sleep apnea (adult) (pediatric); G47.34 Idiopathic sleep related nonobstructive alveolar hypoventilation | CPT/HCPCS: 99212 ==

== ENCOUNTER 2024-03-16 12:33 | Outpatient (AMB) | payer MEDICARE, SELFPAY ==
[2024-03-16 12:52] VITALS: BP 120/60; PULSE 76; O2SAT 93; BMI 37.0
--- NOTE | 2024-03-16 12:52 | MHC.PC.OV ---
Vital Signs 03/16/24 12:52 Height 5 ft 1 in Weight 196 lb BMI 37.0 BP 120/60 Blood Pressure Location Rt brachial Position Sitting Pulse 76 Pulse Source Pulse Oximeter Pulse Oximetry (%) 93 Oxygen Delivery Method Room Air Intake Visit Reasons: 2 month follow up - see comments Allergies Penicillins Allergy (Unknown, Verified 03/16/24 12:59) pt does not know she was a child Sulfa (Sulfonamide Antibiotics) Allergy (Unknown, Verified 03/16/24 12:59) Unknown Medication List - Last Reconciled 03/16/24 by Milli Coiln MD albuterol sulfate 90 mcg/actuation (Ventolin HFA) 2 puffs inhalation Q6H PRN ascorbic acid (vitamin C) 500 mg PO DAILY bisoprolol fumarate 5 mg PO DAILY blood sugar diagnostic ([employer] Undergar[employer] Ultra Blue Test Strip) As directed calcium carbonate (Calcium 600) 1,200 mg PO QDAY cetirizine (Zyrtec) 10 mg PO DAILY cholecalciferol (vitamin D3) 25 mcg PO DAILY aqpcqlxnhsy-ibatrqsvj-srrhlxjp 100-62.5-25 mcg (Trelegy Ellipta) 1 ea PO DAILY glucosamine HCl 1,500 mg PO DAILY lancets (TUKZ Undergarmentsuch Delica Lancets) As directed metformin 500 mg PO BID multivitamin (Multiple Vitamins tablet) 1 tab PO DAILY omega 6-dta-jye-fish oil 1,000 mg (120 mg-180 mg) (Fish Oil) 1 cap PO DAILY omeprazole magnesium (Prilosec OTC) 20 mg PO DAILY [oxygen concentrator with portability including oxygen supplies. 2 liters/min flow rate] psyllium husk (Daily Fiber) 0.4 grams PO BEDTIME PRN triamterene-hydrochlorothiazid 37.5-25 mg 1 tab PO DAILY Tobacco use date assessed: 03/16/24 Dental Screening Dental Screen Date: 01/15/24 HPI 2 month follow up - see comments HPI Details Pt presents for HTN, COPD, DM 2, stable on current medications PFSH Medical History Annual physical exam Arthritis History of DVT (deep vein thrombosis) GERD (gastroesophageal reflux disease) Dependence on nocturnal oxygen therapy Postmenopausal bleeding Vaginal prolapse Increased urinary frequency Vitamin D deficiency MORRO (obstructive sleep apnea) Nocturnal hypoxemia Hypoxia Palpitations Overweight Mammogram normal Colon cancer screening DM (diabetes mellitus) Osteoarthritis GERD (gastroesophageal reflux disease) COPD (chronic obstructive pulmonary disease) Surgical History Hx of cholecystectomy History of cataract H/O colonoscopy Family History Father ETOH abuse Cirrhosis Mother COPD (chronic obstructive pulmonary disease) Diabetes Brother Substance use disorder Social History Household Members: Spouse Housing: House Alcohol intake: current Alcohol intake frequency: holidays/special occasions only Patient Tobacco Use Status: Former Tobacco user Quit Date: 2001 Smoked: 30 e-Cigarette/Vaping Use: Never Used service: No Current occupational status: retired Sexual orientation: Straight/Heterosexual Gender identity: Female Cognitive needs: No Hearing needs: No Vision needs: Yes Female Reproductive History Menstrual Age of Menarche: 12 Questionnaire Thrive Questionnaire Date Thrive assessed: 01/15/24 CLARKE-7 AMB Questionnaire CLARKE-7 Date CLARKE - 7 assessed: 01/15/24 Source: Developed by Drs. Bradly Womack, Luz Shrestha, Bello Euceda and colleagues, with an educational elizabet from [employer]. Review of Systems Const All systems reviewed & are unremarkable except as noted in HPI and below ENT Reports no additional complaints Card Reports no additional complaints Resp Reports no additional complaints GI Reports no additional complaints Reports no additional complaints Physical exam (Primary Care) Vital Signs: Last Vital Signs Pulse 76 03/16/24 12:52 BP 120/60 03/16/24 12:52 Pulse Ox 93 03/16/24 12:52 Oxygen Delivery Method Room Air 03/16/24 12:52 BMI result Body Mass Index 37.0 Tobacco/Smoking Status: Tobacco use Status Tobacco use date assessed 03/16/24 03/16/24 13:02 Patient Tobacco Use Status Former Tobacco user 03/16/24 12:53 e-Cigarette/Vaping Use Never Used 03/16/24 12:53 Thrive Assessment: Date of Thrive Assessment Date Thrive assessed 01/15/24 03/16/24 12:53 Const General: no acute distress HENMT Head: Yes normal to inspection General nose exam: Normal external nose present Neck Neck: Yes supple Resp Effort & Inspection: normal respiratory effort Auscultation: clear to auscultation bilaterally Cardio Rhythm: regular rhythm Heart sounds: S1 normal heart sound present and S2 normal heart sound present GI Inspection: Yes normal to inspection Palpation (GI): Soft to palpation Percussion: Yes normal to percussion Auscultation: normal bowel sounds Assessment and Plan Assessment & Plan (1) COPD (chronic obstructive pulmonary disease): Comment: Patient has chronic obstructive pulmonary disease, moderately severe. PFT on 02/27/2022 Clinically well controlled with the current regimen. Code(s): J44.9 - Chronic obstructive pulmonary disease, unspecified Plan: Continue Trelegy albuterol inhaler and supplemental O2 at night (2) DM (diabetes mellitus): Comment: On metformin, A1C 5.9 03/08 Code(s): E11.9 - Type 2 diabetes mellitus without complications Plan: ADA diet increase physical activity weight loss discussed with the patient follow-up in 3 months with a fasting labs before (3) Tachycardia: Comment: sinus, Echo 2022 normal ejection fraction, no significant wall motion abnormalities normal valves, no pulmonary hypertension Code(s): R00.0 - Tachycardia, unspecified Plan: Patient has difficulty breaking bisoprolol tablets to take half a tab. She will try 5 mg for hypertension and tachycardia follow-up in 3 months (4) Overweight: Comment: Patient is trying to lose weight. Has lost about 10 more lb. Will continue to lose more. Code(s): E66.3 - Overweight Plan: Increase physical activity decrease caloric intake and weight loss discussed with the patient Orders: Orders Comprehensive [place]. Panel Fast 3 Months E11.9 - Type 2 diabetes mellitus without complications, J44.9 - Chronic obstructive pulmonary disease, unspecified, R00.0 - Tachycardia, unspecified Complete Blood Count Auto Diff 3 Months E11.9 - Type 2 diabetes mellitus without complications, J44.9 - Chronic obstructive pulmonary disease, unspecified, R00.0 - Tachycardia, unspecified Hemoglobin A1c 3 Months E11.9 - Type 2 diabetes mellitus without complications, J44.9 - Chronic obstructive pulmonary disease, unspecified, R00.0 - Tachycardia, unspecified Lipid Panel 3 Months E11.9 - Type 2 diabetes mellitus without complications, J44.9 - Chronic obstructive pulmonary disease, unspecified, R00.0 - Tachycardia, unspecified Microalbumin, Random (w Creat) 3 Months E11.9 - Type 2 diabetes mellitus without complications, J44.9 - Chronic obstructive pulmonary disease, unspecified, R00.0 - Tachycardia, unspecified TSH reflex Free T4 3 Months E11.9 - Type 2 diabetes mellitus without complications, J44.9 - Chronic obstructive pulmonary disease, unspecified, R00.0 - Tachycardia, unspecified Medications: Changed From bisoprolol fumarate 2.5 mg (1/2 x 5 mg) PO DAILY 45 tabs 0RF To bisoprolol fumarate 5 mg PO DAILY 90 tabs 3RF Coding Level of Care Code Est Pt Level 4 (42661) Diagnoses COPD (chronic obstructive pulmonary disease) J44.9 DM (diabetes mellitus) E11.9 Tachycardia R00.0 Overweight E66.3
== END 2024-03-16 13:30 | disposition home or self-care (01) ==
PROVIDERS: PCP Internal Medicine; Visit Provider Internal Medicine
DX: J44.9 Chronic obstructive pulmonary disease, unspecified (principal); E11.9 Type 2 diabetes mellitus without complications; R00.0 Tachycardia, unspecified; E66.3 Overweight
CPT/HCPCS: 99214

== ENCOUNTER 2024-06-13 08:48 | Outpatient (REF) | payer MEDICARE, SELFPAY ==
[2024-06-13 10:15] LABS: MANUAL DIFF FLAG NO
[2024-06-13 10:20] LABS: Basophils Absolute Auto 0.1 X10*3/uL (0.0-0.2); Basophils Percent Auto 0.8 % (0-2); Eosinophils Absolute Auto 0.1 X10*3/uL (0.0-0.4); Eosinophils Percent Auto 1.6 % (0-4); Hematocrit 38.2 % (37.0-47.0); Imm Gran Abs Auto 0.04 X10*3/uL (0.00-0.03); Imm Gran Pct Auto 0.5 % (0.0-0.4); Lymphocytes Absolute Auto 2.7 X10*3/uL (1.2-4.9); Mean Corpuscular Hemoglobin 32.4 pg (27.0-33.0); Mean Corpuscular Volume 95.3 fL (80.0-98.0); Mean Platelet Volume 10.4 fL (9.4-12.3); Monocytes Absolute Auto 0.7 X10*3/uL (0.1-1.2); Monocytes Percent Auto 8.2 % (2-11); Neutrophils Absolute Auto 4.7 x10*3/uL (2.0-8.3); Neutrophils Percent Auto 55.9 % (45-73); Platelet Count 278 X10*3/uL (160-400); Red Blood Count 4.01 X10*6/uL (4.20-5.50); Red Cell Distribution Width 12.9 % (11.0-16.0); White Blood Count 8.3 X10*3/uL (4.8-10.8)
[2024-06-13 10:35] LABS: Estimated Average Glucose 128 mg/dL; Hemoglobin A1c % 6.1 % (<6.0)
[2024-06-13 11:08] LABS: Creatinine Urine 110.82 mg/dL; Microalbum/Creatinine Ratio Ur 9.9 ug/mg cr (<30)
[2024-06-13 11:21] LABS: Alanine Aminotransferase 17 U/L (0-31); Albumin Level 3.8 g/dL (3.5-5.0); Alkaline Phosphatase 75 U/L (39-117); Anion Gap 13 (12-20); Aspartate Amino Transferase 14 U/L (5-31); Bilirubin Total 0.5 mg/dL (0.0-1.0); Blood Urea Nitrogen 20 mg/dL (9-16); Calcium 9.9 mg/dL (8.4-10.2); Carbon Dioxide 30 mmol/L (22-29); Chloride 101 mmol/L (96-108); Cholesterol 184 mg/dL (<200); Estimated Glomerular Filt Rate > 60; Glucose Fasting 110 mg/dL (60-99); HDL Cholesterol 58 mg/dL (>40); LDL Cholesterol Calculated 108 mg/dL (<100); Sodium 140 mmol/L (135-145); Total Protein 6.7 g/dL (6.5-8.0); Triglycerides 92 mg/dL (<150)
[2024-06-13 11:44] LABS: TSH reflex Free T4 1.43 uIU/mL (0.32-4.0)
== END 2024-06-13 08:49 | disposition home or self-care (01) ==
LOC: HO.HMGCLDS 08:48
PROVIDERS: PCP Internal Medicine; Visit Provider Internal Medicine
DX: J44.9 Chronic obstructive pulmonary disease, unspecified (principal); E11.9 Type 2 diabetes mellitus without complications; R00.0 Tachycardia, unspecified
CPT/HCPCS: 36415; 80053; 80061; 82043; 82570; 83036; 84443; 85025

== ENCOUNTER 2024-06-22 13:45 | Outpatient (AMB) | payer MEDICARE, SELFPAY ==
[2024-06-22 13:53] VITALS: BP 124/70; PULSE 75; O2SAT 95; BMI 37.0
--- NOTE | 2024-06-22 13:53 | A.OFFVIS_ITS ---
Vital Signs 06/22/24 13:53 Height 5 ft 1 in Weight 196 lb BMI 37.0 BP 124/70 Blood Pressure Location Lt brachial Position Sitting Pulse 75 Pulse Source Pulse Oximeter Pulse Oximetry (%) 95 Oxygen Delivery Method Room Air Intake Visit Reasons: post covid Intake Note: pt is here for follow up and had covid about 2 weeks ago, and would like a poc for out and about Technologist Infectious Disease Required: No Allergies Penicillins Allergy (Unknown, Verified 06/22/24 14:14) pt does not know she was a child Sulfa (Sulfonamide Antibiotics) Allergy (Unknown, Verified 06/22/24 14:14) Unknown Medication List - Last Reconciled 06/22/24 by Rosemary Masterson MD albuterol sulfate 90 mcg/actuation (Ventolin HFA) 2 puffs inhalation Q6H PRN ascorbic acid (vitamin C) 500 mg PO DAILY bisoprolol fumarate 5 mg PO DAILY blood sugar diagnostic ([employer] Ultra Blue Test Strip) As directed calcium carbonate (Calcium 600) 1,200 mg PO QDAY cetirizine (Zyrtec) 10 mg PO DAILY cholecalciferol (vitamin D3) 25 mcg PO DAILY knvggpzrpnx-mfojsojhz-pboxkezr 100-62.5-25 mcg (Trelegy Ellipta) 1 ea PO DAILY glucosamine HCl 1,500 mg PO DAILY lancets ([employer] Delica Lancets) As directed metformin 500 mg PO BID multivitamin (Multiple Vitamins tablet) 1 tab PO DAILY omega 4-lqj-zak-fish oil 1,000 mg (120 mg-180 mg) (Fish Oil) 1 cap PO DAILY omeprazole magnesium (Prilosec OTC) 20 mg PO DAILY [oxygen concentrator with portability including oxygen supplies. 2 liters/min flow rate] psyllium husk (Daily Fiber) 0.4 grams PO BEDTIME PRN triamterene-hydrochlorothiazid 37.5-25 mg 1 tab PO DAILY Do you need a note to return to daycare/school/sports/work: No HPI HPI post covid: Details: Stefania is 74 years old very pleasant female. She is here for follow-up of her COPD. She is a known case of chronic obstructive pulmonary disease for many years but it is well controlled. With her current medication She is moderately obese and does have history of nocturnal hypoxemia, which is controlled with oxygen 1.5 L per minute. Recently had COVID infection from which she recovered very well and at home. Since then she is using O2 2 L/minute at night. .She sleeps well She also gets short of breath on walking up hill or climbing stairs. She does use portable oxygen off and on, she has be cylinders for portability, in addition to stationary concentrator. She travels around and she would prefer to have a POC . She is willing to buy one after pocket. [facility] Medical History Annual physical exam Arthritis History of DVT (deep vein thrombosis) GERD (gastroesophageal reflux disease) Dependence on nocturnal oxygen therapy Postmenopausal bleeding Vaginal prolapse Increased urinary frequency Vitamin D deficiency MORRO (obstructive sleep apnea) Nocturnal hypoxemia Hypoxia Palpitations Overweight Mammogram normal Colon cancer screening DM (diabetes mellitus) Osteoarthritis GERD (gastroesophageal reflux disease) COPD (chronic obstructive pulmonary disease) Surgical History Hx of cholecystectomy History of cataract H/O colonoscopy Family History Father ETOH abuse Cirrhosis Mother COPD (chronic obstructive pulmonary disease) Diabetes Brother Substance use disorder Social History Household Members: Spouse Housing: House Alcohol intake: current Alcohol intake frequency: holidays/special occasions only Patient Tobacco Use Status: Former Tobacco user Years Smoked: 30 e-Cigarette/Vaping Use: Never Used service: No Current occupational status: retired Sexual orientation: Straight/Heterosexual Gender identity: Female Cognitive needs: No Hearing needs: No Vision needs: Yes Female Reproductive History Menstrual Age of Menarche: 12 Review of Systems Const All systems reviewed & are unremarkable except as noted in HPI and below Eyes Reports no additional complaints ENT Reports nasal congestion (Mild intermittent) Card Denies chest pain, Denies irregular heart rhythm and Reports leg edema (Only mild dependent edema when she is on her feet) Resp Reports as per HPI GI Reports no additional complaints Reports no additional complaints Musc Reports no additional complaints Skin/Breast Reports system reviewed and no additional complaints, except as documented Neuro Reports no additional complaints Psych Reports no additional complaints Physical Exam Vital Signs: Last Vital Signs Pulse 75 06/22/24 13:53 BP 124/70 06/22/24 13:53 Pulse Ox 95 06/22/24 13:53 Oxygen Delivery Method Room Air 06/22/24 13:53 BMI result Body Mass Index 37.0 Const General: healthy appearing (EXCEPT FOR BEING OVERWEIGHT), comfortable, no acute distress, alert and awake Orientation/consciousness: patient oriented x3 HEENT Head: Yes normal to inspection General nose exam: No nasal polyps present and No nasal discharge present Face and sinus: Yes sinuses nontender Mouth: oropharynx normal Throat: Yes posterior oropharynx normal Eyes General: appearance normal, both eyes and all related structures Neck Neck: Yes normal visual inspection, Yes no lymphadenopathy, Yes trachea midline and Yes no JVD Thyroid: Thyroid normal Chest Chest palpation & inspection: normal inspection of the chest, normal palpation of entire chest wall and no tenderness Resp Other: PERCUSSION NOTE RESONANT, BREATH SOUNDS SLIGHTLY DECREASED OVER THE BASILAR AREAS. LUNGS ARE CLEAR .NO WHEEZES RHONCHI OR CREPITATIONS ARE HEARD. Cardio Palpation: normal PMI Rate: regular rate Rhythm: regular rhythm Heart sounds: no gallops and no murmurs GI Palpation (GI): Soft to palpation, nontender, No hepatosplenomegaly present and no masses Auscultation: normal bowel sounds Back/Spine/Pelvis Thoracic/Lumbar Spine: thoracic and lumbar spine normal to inspection Skin General skin exam: no rashes or lesions noted Neuro General: patient oriented x3 and no focal motor deficits Cranial nerves: Yes CN's II-XII intact bilaterally Extrem General: Yes normal to inspection, Yes no clubbing, cyanosis or edema and Yes no calf tenderness Psych Appearance: grossly normal and well kempt Speech and movement: Normal speech and movement present Office Procedures 6 Minute Walk Time:: 14:20 SPO2 % at rest: 95 Pulse at rest: 74 SPO2 % during excercise: 87 Pulse during excercise: 102 SPO2 % after excercise: 92 Pulse after excercise: 96 Distance in yards walked: 180 Germaine Score: 5 Performance Observations:: Stefania walked unassisted on room air for 60 yards before her SPO2 decreased to 87%, O2 started at pulsed setting 2 and with a brief rest recovered to 94%. Stefania walked another 50 yards before her SPO2 decreased to 88%, O2 increased to setting 3 and her SPO2 recovered to 92%. She maintained her SPO2 91-92% on pulsed O2 setting 3. [id number] - 6 Minute Walk Assessment & Plan Assessment & Plan (1) COPD (chronic obstructive pulmonary disease): Comment: Patient has chronic obstructive pulmonary disease, moderately severe. PFT on 02/27/2022 Clinically well controlled with the current regimen. Code(s): J44.9 - Chronic obstructive pulmonary disease, unspecified Category: Medical Plan: Continue to use Trelegy Ellipta 1 inhalation daily. Albuterol HFA 2 puffs Q 6 hours only p.r.n.. (2) Nocturnal hypoxemia: Comment: Significant nocturnal hypoxemia was found on sleep study. Most likely due to her COPD and sleep apnea. Patient being treated with oxygen 2 L/minute at night and doing well. Code(s): G47.34 - Idiopathic sleep related nonobstructive alveolar hypoventilation Category: Medical Plan: PATIENT HAD 6 MINUTES WALK TEST. DESATURATED, WITHIN 2 MINUTES . THEN STARTED ON OXYGEN SUPPLEMENTATION SHE DID WELL WITH CONSERVATIVE MODE, AND O2 AT 3 L/MINUTE. SHE QUALIFIES FOR POC. AND WE WILL SEND AN ORDER TO OXYGEN [employer]. (3) MORRO (obstructive sleep apnea): Comment: As per sleep study her sleep apnea was only mild, and more in supine position. Being treated with conservative measures and is doing well. Nocturnal hypoxemia being treated with oxygen supplementation. Code(s): G47.33 - Obstructive sleep apnea (adult) (pediatric) Category: Medical Plan: For mild MORRO patient has not required to use CPAP. As noted above she uses O2 2 L/minute at night to overcome. The nocturnal hypoxemia Coding Level of Care Code Est Pt Level 3 (33102) Diagnoses COPD (chronic obstructive pulmonary disease) J44.9 Nocturnal hypoxemia G47.34 MORRO (obstructive sleep apnea) G47.33 CPT Codes Coding ([id number])
[2024-06-22 14:30] VITALS: PULSE 74; O2SAT 95
== END 2024-06-22 14:58 | disposition home or self-care (01) ==
PROVIDERS: PCP Internal Medicine; Visit Provider Internal Medicine
DX: J44.9 Chronic obstructive pulmonary disease, unspecified (principal); G47.34 Idiopathic sleep related nonobstructive alveolar hypoventilation; G47.33 Obstructive sleep apnea (adult) (pediatric)
CPT/HCPCS: 94618; 99213

== ENCOUNTER → 2024-06-22 13:45 | Outpatient (BNVA) | payer MEDICARE, SELFPAY | PROVIDERS: PCP Internal Medicine; Visit Provider Internal Medicine | DX: J44.9 Chronic obstructive pulmonary disease, unspecified (principal); G47.33 Obstructive sleep apnea (adult) (pediatric); G47.34 Idiopathic sleep related nonobstructive alveolar hypoventilation | CPT/HCPCS: 94618; 99212 ==

== ENCOUNTER 2024-07-12 11:15 | Outpatient (AMB) | payer MEDICARE, SELFPAY ==
[2024-07-12 11:16] VITALS: BP 124/78; PULSE 73; O2SAT 96; BMI 37.8
--- NOTE | 2024-07-12 11:16 | MHC.PC.OV ---
Vital Signs 07/12/24 11:16 Height 5 ft 1 in Weight 200 lb BMI 37.8 BP 124/78 Blood Pressure Location Lt brachial Position Sitting Pulse 73 Pulse Source Pulse Oximeter Pulse Oximetry (%) 96 Oxygen Delivery Method Room Air Intake Visit Reasons: DM followup Intake Note: Pt is here today for a follow up visit on DM. Allergies Penicillins Allergy (Unknown, Verified 07/12/24 11:19) pt does not know she was a child Sulfa (Sulfonamide Antibiotics) Allergy (Unknown, Verified 07/12/24 11:19) Unknown Medication List - Last Reconciled 07/12/24 by Milli Colin MD albuterol sulfate 90 mcg/actuation (Ventolin HFA) 2 puffs inhalation Q6H PRN ascorbic acid (vitamin C) 500 mg PO DAILY bisoprolol fumarate 5 mg PO DAILY blood sugar diagnostic ([employer] Ultra Blue Test Strip) As directed calcium carbonate (Calcium 600) 1,200 mg PO QDAY cetirizine (Zyrtec) 10 mg PO DAILY cholecalciferol (vitamin D3) 25 mcg PO DAILY bjtnmdwjfhu-nufyntzoq-fksvkwks 100-62.5-25 mcg (Trelegy Ellipta) 1 ea PO DAILY glucosamine HCl 1,500 mg PO DAILY lancets ([employer] Delica Lancets) As directed metformin 500 mg PO BID multivitamin (Multiple Vitamins tablet) 1 tab PO DAILY omega 9-prd-ttl-fish oil 1,000 mg (120 mg-180 mg) (Fish Oil) 1 cap PO DAILY omeprazole magnesium (Prilosec OTC) 20 mg PO DAILY [oxygen concentrator with portability including oxygen supplies. 2 liters/min flow rate] triamterene-hydrochlorothiazid 37.5-25 mg 1 tab PO DAILY Tobacco use date assessed: 03/16/24 Fall risk assessment: No Falls in past year Last assessed Fall Risk: 07/12/24 Dental Screening Dental Screen Date: 01/15/24 HPI DM followup HPI Details Pt presents for f/u DM 2, HTN, O2 dependent COPD, stable on meds. [facility] Medical History Annual physical exam Arthritis History of DVT (deep vein thrombosis) GERD (gastroesophageal reflux disease) Dependence on nocturnal oxygen therapy Postmenopausal bleeding Vaginal prolapse Increased urinary frequency Vitamin D deficiency MORRO (obstructive sleep apnea) Nocturnal hypoxemia Hypoxia Palpitations Overweight Mammogram normal Colon cancer screening DM (diabetes mellitus) Osteoarthritis GERD (gastroesophageal reflux disease) COPD (chronic obstructive pulmonary disease) Surgical History Hx of cholecystectomy History of cataract H/O colonoscopy Family History Father ETOH abuse Cirrhosis Mother COPD (chronic obstructive pulmonary disease) Diabetes Brother Substance use disorder Social History Household Members: Spouse Housing: House Alcohol intake: current Alcohol intake frequency: holidays/special occasions only Patient Tobacco Use Status: Former Tobacco user Years Smoked: 30 e-Cigarette/Vaping Use: Never Used service: No Current occupational status: retired Sexual orientation: Straight/Heterosexual Gender identity: Female Cognitive needs: No Hearing needs: No Vision needs: Yes Female Reproductive History Menstrual Age of Menarche: 12 Questionnaire PHQ-9 Over the last 2 weeks, how often have you been bothered by any of the following problems? 1. Little interest or pleasure in doing things: not at all 2. Feeling down, depressed, or hopeless: not at all 3. Trouble falling or staying asleep, or sleeping too much: not at all 4. Feeling tired or having little energy: not at all 5. Poor appetite or overeating: several days 6. Feeling bad about yourself - or that you are a failure or have let yourself or your family down: not at all 7. Trouble concentrating on things, such as reading the newspaper or watching television: not at all 8. Moving or speaking so slowly that other people could have noticed. Or the opposite - being so fidgety or restless that you have been moving around a lot more than usual: not at all 9. Thoughts that you would be better off or of hurting yourself in some way: not at all Total score: 1 Depression Screening Interpretation: Negative Depression Screening Done: Yes Source: Developed by Drs. Bradly Womack, Luz Shrestha, Bello Euceda and colleagues, with an educational elizabet from [employer] Thrive Questionnaire Date Thrive assessed: 01/15/24 I am a: Patient What is your living situation today?: I have a steady place to live Within the past 12 months, did the food you bought not last and you didn't have the money to get more?: Never true Within the past 12 months, did you worry whether your food would run out before you got money to buy more?: Never true Do you have trouble paying for medicines?: No Do you have trouble getting transportation to medical appointments?: No Do you have trouble paying your heating and electricity bill?: No Do you have trouble taking care of your child, family member or friend?: No Do you have trouble with day-to-day activities such as bathing, preparing meals, shopping, managing finances, etc.?: No Are you currently unemployed and looking for a job?: No Are you interested in more education?: No Please select the resources that you would like help with: None Currently or been in a relationship where the following occur: No concerns reported THRIVE Score: 0 AUDIT C Alcohol Use Questionnaire (AUDIT-C) 1. How often do you have a drink containing alcohol?: Never 3. How often do you have six or more drinks on one occasion?: Never Total Score: 0 CLARKE-7 AMB Questionnaire CLARKE-7 Date CLARKE - 7 assessed: 01/15/24 Feeling nervous, anxious, or on edge: 0 = Not at all Not being able to stop or control worryin = Not at all Worrying too much about different things: 0 = Not at all Trouble relaxin = Not at all Being so restless that it is hard to sit still: 0 = Not at all Becoming easily annoyed or irritable: 0 = Not at all Feeling afraid as if something awful might happen: 0 = Not at all Total CLARKE-7 score (0-4 normal; 5-9 mild; 10-14 moderate; 15-21 severe): 0 Source: Developed by Drs. Bradly Womack, Luz Shrestha, Bello Euceda and colleagues, with an educational elizabet from [employer] Review of Systems Const All systems reviewed & are unremarkable except as noted in HPI and below Eyes Reports no additional complaints ENT Reports no additional complaints Card Reports no additional complaints Resp Reports no additional complaints GI Reports no additional complaints Reports no additional complaints Physical exam (Primary Care) Vital Signs: Last Vital Signs Pulse 73 07/12/24 11:16 BP 124/78 07/12/24 11:16 Pulse Ox 96 07/12/24 11:16 Oxygen Delivery Method Room Air 07/12/24 11:16 BMI result Body Mass Index 37.8 Tobacco/Smoking Status: Tobacco use Status Tobacco use date assessed 03/16/24 07/12/24 11:16 Patient Tobacco Use Status Former Tobacco user 07/12/24 11:16 e-Cigarette/Vaping Use Never Used 07/12/24 11:16 PHQ-9: PHQ-9 Score PHQ-9: Total score 1 07/12/24 11:43 Depression Screening Interpretation: Negative Thrive Assessment: Date of Thrive Assessment Date Thrive assessed 01/15/24 07/12/24 11:16 Currently or been in a relationship where the following occur: No concerns reported Const General: no acute distress HENMT Head: Yes normal to inspection Face and sinus: Yes normal facial exam Throat: Yes posterior oropharynx normal Neck Neck: Yes supple Resp Effort & Inspection: normal respiratory effort Auscultation: clear to auscultation bilaterally Cardio Rhythm: regular rhythm Heart sounds: S1 normal heart sound present and S2 normal heart sound present GI Inspection: Yes normal to inspection Palpation (GI): Soft to palpation Percussion: Yes normal to percussion Auscultation: normal bowel sounds Assessment and Plan Assessment & Plan (1) COPD (chronic obstructive pulmonary disease): Comment: Patient has chronic obstructive pulmonary disease, moderately severe. PFT on 02/27/2022 Clinically well controlled with the current regimen. Code(s): J44.9 - Chronic obstructive pulmonary disease, unspecified Plan: Continue Trelegy supplemental to follow-up with pulmonology (2) DM (diabetes mellitus): Comment: On metformin, A1C 5.9 03/08 Code(s): E11.9 - Type 2 diabetes mellitus without complications Plan: A1c is 6.1, continue ADA diet and metformin, increase physical activity, weight loss discussed with the patient follow-up in 6 months with a fasting labs before (3) HTN (hypertension): Code(s): I10 - Essential (primary) hypertension Plan: Continue current medications Orders: Orders Comprehensive Vardaman. Panel Fast 6 Months E11.9 - Type 2 diabetes mellitus without complications, E66.3 - Overweight, J44.9 - Chronic obstructive pulmonary disease, unspecified Hemoglobin A1c 6 Months E11.9 - Type 2 diabetes mellitus without complications, E66.3 - Overweight, J44.9 - Chronic obstructive pulmonary disease, unspecified Complete Blood Count Auto Diff 6 Months E11.9 - Type 2 diabetes mellitus without complications, E66.3 - Overweight, J44.9 - Chronic obstructive pulmonary disease, unspecified Microalbumin, Random (w Creat) 6 Months E11.9 - Type 2 diabetes mellitus without complications, E66.3 - Overweight, J44.9 - Chronic obstructive pulmonary disease, unspecified Lipid Panel 6 Months E11.9 - Type 2 diabetes mellitus without complications, E66.3 - Overweight, J44.9 - Chronic obstructive pulmonary disease, unspecified Vitamin D 25-OH Total 6 Months E11.9 - Type 2 diabetes mellitus without complications, E66.3 - Overweight, J44.9 - Chronic obstructive pulmonary disease, unspecified Coding Level of Care Code Est Pt Level 4 (41590) Diagnoses COPD (chronic obstructive pulmonary disease) J44.9 DM (diabetes mellitus) E11.9 HTN (hypertension) I10
== END 2024-07-12 14:12 | disposition home or self-care (01) ==
PROVIDERS: PCP Internal Medicine; Visit Provider Internal Medicine
DX: J44.9 Chronic obstructive pulmonary disease, unspecified (principal); E11.9 Type 2 diabetes mellitus without complications; I10 Essential (primary) hypertension
CPT/HCPCS: 99214

== ENCOUNTER 2024-08-24 11:19 | Outpatient (AMB) | payer MEDICARE, SELFPAY ==
[2024-08-24 11:21] VITALS: BP 120/76; BMI 37.5
--- NOTE | 2024-08-24 11:21 | MHC.OFFVIS ---
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 Complaining of pelvic pressure not associated with any vaginal bleeding, no urinary or GI symptoms Last Pap/HPV was many years ago no history of abnormal Pap smears last 25 years Last Mammogram was BI-RADS 1 in 02/06 Last DEXA scan was done in 07/08 [facility] Medical History Annual physical exam Arthritis History of DVT (deep vein thrombosis) GERD (gastroesophageal reflux disease) Dependence on nocturnal oxygen therapy Postmenopausal bleeding Vaginal prolapse Increased urinary frequency Vitamin D deficiency MORRO (obstructive sleep apnea) Nocturnal hypoxemia Hypoxia Palpitations Overweight Mammogram normal Colon cancer screening DM (diabetes mellitus) Osteoarthritis GERD (gastroesophageal reflux disease) COPD (chronic obstructive pulmonary disease) Surgical History Hx of cholecystectomy History of cataract H/O colonoscopy Family History Father ETOH abuse Cirrhosis Mother COPD (chronic obstructive pulmonary disease) Diabetes Brother Substance use disorder Social History Household Members: Spouse Housing: House Alcohol intake: current Alcohol intake frequency: holidays/special occasions only Patient Tobacco Use Status: Former Tobacco user Years Smoked: 30 e-Cigarette/Vaping Use: Never Used service: No Current occupational status: retired Sexual orientation: Straight/Heterosexual Gender identity: Female Cognitive needs: No Hearing needs: No Vision needs: Yes Female Reproductive History Menstrual Age of Menarche: 12 Date of Mammogram: 01/29/24 Review of Systems Const All systems reviewed & are unremarkable except as noted in HPI and below Card Reports as per HPI Resp Reports as per HPI GI Reports as per HPI and Reports no additional complaints Reports as per HPI Physical Exam Vital Signs: Last Vital Signs BP 120/76 08/24/24 11:21 BMI result Body Mass Index 37.5 Const General: cooperative, healthy appearing and comfortable Chest Chest palpation & inspection: normal inspection of the chest and normal palpation of entire chest wall Breast/axilla inspection: normal inspection of the breasts and normal inspection of the axillae Breast/axilla palpation: normal palpation of the breasts, normal palpation of the axillae and no axillary lymphadenopathy Resp Effort & Inspection: normal respiratory effort Auscultation: clear to auscultation bilaterally Percussion: percussion normal Cardio Palpation: normal PMI Rate: regular rate Rhythm: regular rhythm Heart sounds: no murmurs and no rubs Peripheral pulses: Peripheral pulses 2+ throughout GI Inspection: Yes normal to inspection Palpation (GI): Soft to palpation, nontender, no guarding, not rigid and No hepatosplenomegaly present Percussion: Yes normal to percussion Auscultation: normal bowel sounds Rectal Exam - Female: deferred General: Yes bladder normal to palpation External Female Exam: No lesion Speculum Exam - Vagina: normal appearance of the vagina, normal palpation, normal vaginal discharge and not erythematous Speculum Exam - Cervix: normal appearance of the cervix and normal palpation Bimanual exam- vagina & uterus: normal bimanual exam, normal palpation, uterine size normal, bladder normal to palpation, consistency normal and normal palpation Bimanual Exam- Adnexa, other: normal adnexae, no masses and no tenderness Results AMB Urinalysis Dipstick UR Leukocytes Trace Last Edit by Saira Cohen CMA on 08/24/24 12:02 UR Nitrite Negative Last Edit by Saira Cohen CMA on 08/24/24 12:02 UR Urobilinogen 12 Last Edit by Saira Cohen CMA on 08/24/24 12:02 UR Protein Negative Last Edit by Saira Cohen CMA on 08/24/24 12:02 UR Ph 7.5 Last Edit by Saira Cohen CMA on 08/24/24 12:02 UR Blood Trace Last Edit by Saira Cohen CMA on 08/24/24 12:02 UR Specific [place] 1.010 Last Edit by Saira Cohen CMA on 08/24/24 12:02 UR Ketone Negative Last Edit by Saira Cohen CMA on 08/24/24 12:02 UR Bilirubin Negative Last Edit by Saira Cohen CMA on 08/24/24 12:02 UR Glucose Negative Last Edit by Saira Cohen CMA on 08/24/24 12:02 Assessment & Plan Assessment & Plan (1) Pelvic pressure in female: Code(s): R10.2 - Pelvic and perineal pain Category: Medical Plan: Urine dip done in the office showed microscopic hematuria. pelvic ultrasound ordered. Discussed with the patient the differential diagnosis of pelvic pain including but not limited to adnexal, uterine masses, GI the (Irritable bowel syndrome, diverticulitis, others), musculoskeletal, myofascial pain abdominal wall , adhesions, endometriosis, psychological and others causes. Will check results and treat accordingly. All questions answered, the patient verbalized understanding. Instructed the patient to schedule follow-up appointment in 2 weeks (2) Well woman exam: Code(s): Z01.419 - Encounter for gynecological examination (general) (routine) without abnormal findings Category: Medical Plan: Co testing not indicated since the patient 's age is above 65 with no history of abnormal Pap smears last 25 years. Counseled the patient about the recommended dietary allowance of 1200 mg of Calcium & 800 IU of vitamin D. Instructions given the patient to schedule next screening Mammogram in 02/07. The patient was instructed to perform monthly self-breast exams and to schedule an annual exam in a year; All questions answered and the patient verbalized understanding. (3) Microscopic hematuria: Code(s): R31.29 - Other microscopic hematuria Category: Medical Plan: Urine dip showed microscopic hematuria, urine culture sent. Will repeat urine dip in 2 weeks. Discussed with the patient the possible causes of microscopic hematuria including but not limited to: interstitial cystitis, polyps, stones, masses, urethral inflammatory processes and others. If Urine Culture is negative and repeat urine dip in 2 weeks shows persistent microscopic hematuria, will proceed with CT abdomen/pelvis and urology referral. Instructions given the patient to schedule a 2 week urine dip follow-up appointment. All questions answered and the patient verbalized understanding. Orders: Orders AMB Urinalysis Dipstick Today R10.2 - Pelvic and perineal pain, R31.29 - Other microscopic hematuria US pelvic and transvaginal Today R10.2 - Pelvic and perineal pain Urine Culture Today R31.29 - Other microscopic hematuria Coding Level of Care Code Est Pt Prev Care >65y(29118) Diagnoses Pelvic pressure in female R10.2 Well woman exam Z01.419 Microscopic hematuria R31.29
== END 2024-08-24 12:01 | disposition home or self-care (01) ==
PROVIDERS: PCP Internal Medicine; Visit Provider Obstetrics & Gynecology
DX: Z01.419 Encounter for gynecological examination (general) (routine) without abnormal findings (principal); R10.2 Pelvic and perineal pain; R31.29 Other microscopic hematuria
CPT/HCPCS: 99397

== ENCOUNTER 2024-08-24 11:19 | Outpatient (REF) | payer MEDICARE, SELFPAY | END 2024-08-24 11:20 | disposition home or self-care (01) | LOC: HO.LNP 11:19 | PROVIDERS: PCP Internal Medicine; Visit Provider Obstetrics & Gynecology | DX: R31.29 Other microscopic hematuria (principal) | CPT/HCPCS: 81002; 87086; 99397 ==

== ENCOUNTER 2024-08-30 10:55 | Outpatient (AMB) | payer MEDICARE, SELFPAY ==
--- NOTE | 2024-08-30 11:08 | MHC.OFFVIS ---
Vital Signs 08/30/24 11:10 Height 5 ft 1 in Weight 205 lb 0.478 oz BMI 38.7 BP 122/70 Blood Pressure Location Lt brachial Position Sitting Pulse 79 Pulse Source Pulse Oximeter Pulse Oximetry (%) 96 Oxygen Delivery Method Room Air Intake Visit Reasons: COPD Intake Note: pt is here for follow up and states she is feeling good, takes breaks in the house from oxygen. 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 Allergies Penicillins Allergy (Unknown, Verified 08/30/24 11:21) pt does not know she was a child Sulfa (Sulfonamide Antibiotics) Allergy (Unknown, Verified 08/30/24 11:21) Unknown Medication List - Last Reconciled 08/30/24 by Rosemary Masterson MD albuterol sulfate 90 mcg/actuation (Ventolin HFA) 2 puffs inhalation Q6H PRN ascorbic acid (vitamin C) 500 mg PO DAILY bisoprolol fumarate 5 mg PO DAILY blood sugar diagnostic ([employer] Ultra Blue Test Strip) As directed calcium carbonate (Calcium 600) 1,200 mg PO QDAY cetirizine (Zyrtec) 10 mg PO DAILY cholecalciferol (vitamin D3) 25 mcg PO DAILY zspekrkthfy-urnbvpwta-uigbcxoi 100-62.5-25 mcg (Trelegy Ellipta) 1 ea PO DAILY glucosamine HCl 1,500 mg PO DAILY lancets ([employer] Delica Lancets) As directed metformin 500 mg PO BID multivitamin (Multiple Vitamins tablet) 1 tab PO DAILY omega 5-ezq-nik-fish oil 1,000 mg (120 mg-180 mg) (Fish Oil) 1 cap PO DAILY omeprazole magnesium (Prilosec OTC) 20 mg PO DAILY [oxygen concentrator with portability including oxygen supplies. 2 liters/min flow rate] triamterene-hydrochlorothiazid 37.5-25 mg 1 tab PO DAILY Do you need a note to return to daycare/school/sports/work: No HPI HPI COPD: Details: THIS 74 YEARS OLD VERY PLEASANT FEMALE IS HERE FOR FOLLOW-UP AFTER 4 MONTHS. SHE IS DOING VERY WELL AND HAS NO ACTIVE ISSUES. ONLY MILD INTERMITTENT COUGH AND MILD SHORTNESS OF BREATH IF SHE WALKS UP HILL OR CLIMBS STAIRS. SHE IS BEING TREATED WITH TRELEGY ELLIPTA 1 INHALATION DAILY AND HARDLY NEEDS TO USE THE RESCUE INHALER. SHE HAS NOCTURNAL HYPOXEMIA WELL EXERCISE INDUCED HYPOXEMIA. SHE USES O2 2 L/MINUTE AT NIGHT WITH STATIONARY CONCENTRATOR. FOR PORTABLE O2 USE, SHE IS VERY HAPPY WITH HER POC UNIT. SHE USES IT ALL THE TIME WHEN SHE GOES OUTDOORS OR DOES ANY PHYSICAL WORK. SLEEPS GOOD AT NIGHT WITH O2. SHE DOES HAVE HISTORY OF MORRO BUT IT WAS ONLY MILD, AND SHE DOES WELL WITH JUST O2 2 L/MINUTE AT NIGHT. [facility] Medical History Annual physical exam Arthritis History of DVT (deep vein thrombosis) GERD (gastroesophageal reflux disease) Dependence on nocturnal oxygen therapy Postmenopausal bleeding Vaginal prolapse Increased urinary frequency Vitamin D deficiency MORRO (obstructive sleep apnea) Nocturnal hypoxemia Hypoxia Palpitations Overweight Mammogram normal Colon cancer screening DM (diabetes mellitus) Osteoarthritis GERD (gastroesophageal reflux disease) COPD (chronic obstructive pulmonary disease) Surgical History Hx of cholecystectomy History of cataract H/O colonoscopy Family History Father ETOH abuse Cirrhosis Mother COPD (chronic obstructive pulmonary disease) Diabetes Brother Substance use disorder Social History Household Members: Spouse Housing: House Alcohol intake: current Alcohol intake frequency: holidays/special occasions only Patient Tobacco Use Status: Former Tobacco user Years Smoked: 30 e-Cigarette/Vaping Use: Never Used service: No Current occupational status: retired Sexual orientation: Straight/Heterosexual Gender identity: Female Cognitive needs: No Hearing needs: No Vision needs: Yes Female Reproductive History Menstrual Age of Menarche: 12 Review of Systems Const All systems reviewed & are unremarkable except as noted in HPI and below Eyes Reports no additional complaints ENT Reports nasal congestion (Mild intermittent) Card Denies chest pain, Denies irregular heart rhythm and Reports leg edema (Only mild dependent edema when she is on her feet) Resp Reports as per HPI GI Reports no additional complaints Reports no additional complaints Musc Reports no additional complaints Skin/Breast Reports system reviewed and no additional complaints, except as documented Neuro Reports no additional complaints Psych Reports no additional complaints Physical Exam Const General: healthy appearing (EXCEPT FOR BEING OVERWEIGHT), comfortable, no acute distress, alert and awake Orientation/consciousness: patient oriented x3 HEENT Head: Yes normal to inspection General nose exam: No nasal polyps present and No nasal discharge present Face and sinus: Yes sinuses nontender Mouth: oropharynx normal Throat: Yes posterior oropharynx normal Eyes General: appearance normal, both eyes and all related structures Neck Neck: Yes normal visual inspection, Yes no lymphadenopathy, Yes trachea midline and Yes no JVD Thyroid: Thyroid normal Chest Chest palpation & inspection: normal inspection of the chest, normal palpation of entire chest wall and no tenderness Resp Other: PERCUSSION NOTE RESONANT, BREATH SOUNDS SLIGHTLY DECREASED OVER THE BASILAR AREAS. LUNGS ARE CLEAR .NO WHEEZES RHONCHI OR CREPITATIONS ARE HEARD. Cardio Palpation: normal PMI Rate: regular rate Rhythm: regular rhythm Heart sounds: no gallops and no murmurs GI Palpation (GI): Soft to palpation, nontender, No hepatosplenomegaly present and no masses Auscultation: normal bowel sounds Back/Spine/Pelvis Thoracic/Lumbar Spine: thoracic and lumbar spine normal to inspection Skin General skin exam: no rashes or lesions noted Neuro General: patient oriented x3 and no focal motor deficits Cranial nerves: Yes CN's II-XII intact bilaterally Extrem General: Yes normal to inspection, Yes no clubbing, cyanosis or edema and Yes no calf tenderness Psych Appearance: grossly normal and well kempt Speech and movement: Normal speech and movement present Assessment & Plan Assessment & Plan (1) COPD (chronic obstructive pulmonary disease): Comment: Patient has chronic obstructive pulmonary disease, moderately severe. PFT on 02/27/2022 Clinically well controlled with the current regimen. Code(s): J44.9 - Chronic obstructive pulmonary disease, unspecified Category: Medical Plan: CONTINUE TO USE TRELEGY ELLIPTA 1 INHALATION DAILY AND VENTOLIN 2 PUFFS Q 4-6 HOURS ONLY P.R.N.. REVISIT Q.6 MONTHS. (2) MORRO (obstructive sleep apnea): Comment: As per sleep study her sleep apnea was only mild, and more in supine position. Being treated with conservative measures and is doing well. Nocturnal hypoxemia being treated with oxygen supplementation. Code(s): G47.33 - Obstructive sleep apnea (adult) (pediatric) Category: Medical Plan: CONTINUE TO SLEEP IN LATERAL POSITION. TRY TO LOSE SOME WEIGHT. (3) Hypoxia: Comment: SHE HAS NOCTURNAL HYPOXEMIA PART OF HER MILD MORRO AND COPD, WELL TREATED WITH USE OF O2 2 L/MINUTE SHE ALSO HAS EXERCISE INDUCED HYPOXEMIA, WELL TREATED WITH PORTABLE O2 Code(s): R09.02 - Hypoxemia Category: Medical Plan: CONTINUE TO USE O2 2 L/MINUTE AT NIGHT, ALSO P.R.N. DURING THE DAYTIME WITH THE STATIONARY CONCENTRATOR. USE O2 2 L/MINUTE WITH POC, FOR OUTDOOR ACTIVITIES AND ANY PHYSICAL WORK AT HOME Coding Level of Care Code Est Pt Level 3 (08255) Diagnoses COPD (chronic obstructive pulmonary disease) J44.9 MORRO (obstructive sleep apnea) G47.33 Hypoxia R09.02
[2024-08-30 11:10] VITALS: BP 122/70; PULSE 79; O2SAT 96; BMI 38.7
== END 2024-08-30 11:25 | disposition home or self-care (01) ==
PROVIDERS: PCP Internal Medicine; Visit Provider Internal Medicine
DX: J44.9 Chronic obstructive pulmonary disease, unspecified (principal); G47.33 Obstructive sleep apnea (adult) (pediatric); R09.02 Hypoxemia
CPT/HCPCS: 99213

== ENCOUNTER → 2024-08-30 10:55 | Outpatient (BNVA) | payer MEDICARE, SELFPAY | PROVIDERS: PCP Internal Medicine; Visit Provider Internal Medicine | DX: J44.9 Chronic obstructive pulmonary disease, unspecified (principal); R09.02 Hypoxemia; G47.34 Idiopathic sleep related nonobstructive alveolar hypoventilation; Z99.81 Dependence on supplemental oxygen | CPT/HCPCS: 99212 ==

== ENCOUNTER 2024-09-01 10:52 | Outpatient (REF) | payer MEDICARE, SELFPAY ==
--- NOTE | ~2024-09-01 | US_ITS ---
EXAMINATION: US PELVIS CLINICAL INFORMATION: Pelvic and perineal pain. COMPARISON: Ultrasound dated March 28, 2022 TECHNIQUE: Ultrasound of the pelvis is performed using both transabdominal and transvaginal transducers along with Doppler. Transvaginal imaging is performed due to inadequate visualization transabdominally. FINDINGS: Exam submitted for interpretation on September 27, 2024. Uterus: The uterus is anteverted and measures 6 x 2 x 3 cm. The double wall endometrial thickness is 3 mm. Trace of fluid in the endocervical canal, nonspecific. The uterus is smooth in contour and has normal myometrial echogenicity. No visible fibroid. Adnexa: Right ovary is identified. The left ovary is not identified.. There is flow on color Doppler interrogation to the right ovary. There is no free fluid in the cul-de-sac. Right ovary measures 1 x 1 x 1 cm. Volume is 1 cc. Left ovary is not identified. US/US pelvic and transvaginal IMPRESSION: Left ovary is not identified. Normal uterus Right ovary is normal.. Electronically signed by: Isidro Caraballo MD 09/27/2024 03:45 PM EST
== END 2024-09-01 10:53 | disposition home or self-care (01) ==
LOC: HO.US 10:52
PROVIDERS: PCP Internal Medicine; Visit Provider Obstetrics & Gynecology
DX: R10.2 Pelvic and perineal pain (principal)
CPT/HCPCS: 76830; 76856

== ENCOUNTER → 2024-09-01 10:53 | Outpatient (BNV) | payer MEDICARE, SELFPAY | PROVIDERS: PCP Internal Medicine; Visit Provider Radiology Diagnostic Radiology | DX: R10.2 Pelvic and perineal pain (principal) | CPT/HCPCS: 76856 ==

== ENCOUNTER 2024-09-28 09:57 | Outpatient (AMB) | payer MEDICARE, SELFPAY ==
--- NOTE | 2024-09-28 09:57 | A.OFFVIS_ITS ---
Intake Visit Reasons: Ultrasound results Allergies Penicillins Allergy (Unknown, Verified 08/30/24 11:21) pt does not know she was a child Sulfa (Sulfonamide Antibiotics) Allergy (Unknown, Verified 08/30/24 11:21) Unknown HPI Comments Details: The patient is scheduled tele health visit for follow-up regarding her pelvic pain. The patient is doing well. The following workup was done so far: Last visit urine dip showed microscopic hematuria, urine culture was negative. Pelvic ultrasound showed the following: Uterus: The uterus is anteverted and measures 6 x 2 x 3 cm. The double wall endometrial thickness is 3 mm. Trace of fluid in the endocervical canal, nonspecific. The uterus is smooth in contour and has normal myometrial echogenicity. No visible fibroid. Adnexa: Right ovary is identified. The left ovary is not identified. There is flow on color Doppler interrogation to the right ovary. There is no free fluid in the cul-de-sac. Right ovary measures 1 x 1 x 1 cm. Volume is 1 cc. Left ovary is not identified. [facility] Medical History Annual physical exam Arthritis History of DVT (deep vein thrombosis) GERD (gastroesophageal reflux disease) Dependence on nocturnal oxygen therapy Postmenopausal bleeding Vaginal prolapse Increased urinary frequency Vitamin D deficiency MORRO (obstructive sleep apnea) Nocturnal hypoxemia Hypoxia Palpitations Overweight Mammogram normal Colon cancer screening DM (diabetes mellitus) Osteoarthritis GERD (gastroesophageal reflux disease) COPD (chronic obstructive pulmonary disease) Surgical History Hx of cholecystectomy History of cataract H/O colonoscopy Family History Father ETOH abuse Cirrhosis Mother COPD (chronic obstructive pulmonary disease) Diabetes Brother Substance use disorder Social History Household Members: Spouse Housing: House Alcohol intake: current Alcohol intake frequency: holidays/special occasions only Patient Tobacco Use Status: Former Tobacco user Years Smoked: 30 e-Cigarette/Vaping Use: Never Used service: No Current occupational status: retired Sexual orientation: Straight/Heterosexual Gender identity: Female Cognitive needs: No Hearing needs: No Vision needs: Yes Female Reproductive History Menstrual Age of Menarche: 12 Review of Systems Const All systems reviewed & are unremarkable except as noted in HPI and below Reports as per HPI and Reports no additional complaints GI Reports no additional complaints Reports no additional complaints Telehealth Telehealth Telehealth Platform: Telephone Location of provider rendering services: practice address Location of patient: address on file Patient Identification confirmed using: Name, : Yes Telehealth method: voice only Patient verbally consented to treatment: Yes Patient verbally consented to billing insurance company: Yes Patient informed of any privacy concerns related to visit: Yes Assessment & Plan Assessment & Plan (1) Microscopic hematuria: Code(s): R31.29 - Other microscopic hematuria Category: Medical Plan: Recommended repeat urine dip if persistent will proceed with CT scan of abdomen. Instructions given the patient to schedule a appointment for repeat urine dip (2) Pelvic pressure in female: Code(s): R10.2 - Pelvic and perineal pain Category: Medical Plan: Discussed with the patient the results the ultrasound discussed with the patient the results the ultrasound and microscopic hematuria. All questions answered, the patient verbalized understanding I spent a total of 20 minutes reviewing the chart, talking to the patient via video and documenting in the medical record. Coding Level of Care Code Tele Est Pt Level 1 (08519) Diagnoses Microscopic hematuria R31.29 Pelvic pressure in female R10.2
== END 2024-09-28 12:12 | disposition home or self-care (01) ==
LOC: HO.HWS 09:57
PROVIDERS: PCP Internal Medicine; Visit Provider Obstetrics & Gynecology
DX: R31.29 Other microscopic hematuria (principal); R10.2 Pelvic and perineal pain
CPT/HCPCS: 99211

== ENCOUNTER → 2024-09-28 09:57 | Outpatient (BNVA) | payer MEDICARE, SELFPAY | PROVIDERS: PCP Internal Medicine; Visit Provider Obstetrics & Gynecology ==

== ENCOUNTER 2024-10-05 10:50 | Outpatient (AMB) | payer MEDICARE, SELFPAY ==
--- NOTE | 2024-10-05 10:52 | MHC.OFFVIS ---
Vital Signs 10/05/24 10:54 Height 5 ft 1 in Weight 205 lb BMI 38.7 BP 126/74 Intake Visit Reasons: urine dip/US follow up Loader Technician: Loader Technician Present (Santa) Accompanied by: Self / Same As Patient Allergies Penicillins Allergy (Unknown, Verified 10/05/24 10:53) pt does not know she was a child Sulfa (Sulfonamide Antibiotics) Allergy (Unknown, Verified 10/05/24 10:53) Unknown HPI Comments Details: Presenting for repeat urine dip with no complaint last urine dip showed microscopic hematuria, urine culture was negative. The patient is not experiencing any pelvic pressure anymore [facility] Medical History Annual physical exam Arthritis History of DVT (deep vein thrombosis) GERD (gastroesophageal reflux disease) Dependence on nocturnal oxygen therapy Postmenopausal bleeding Vaginal prolapse Increased urinary frequency Vitamin D deficiency MORRO (obstructive sleep apnea) Nocturnal hypoxemia Hypoxia Palpitations Overweight Mammogram normal Colon cancer screening DM (diabetes mellitus) Osteoarthritis GERD (gastroesophageal reflux disease) COPD (chronic obstructive pulmonary disease) Surgical History Hx of cholecystectomy History of cataract H/O colonoscopy Family History Father ETOH abuse Cirrhosis Mother COPD (chronic obstructive pulmonary disease) Diabetes Brother Substance use disorder Social History Household Members: Spouse Housing: House Alcohol intake: current Alcohol intake frequency: holidays/special occasions only Patient Tobacco Use Status: Former Tobacco user Years Smoked: 30 e-Cigarette/Vaping Use: Never Used service: No Current occupational status: retired Sexual orientation: Straight/Heterosexual Gender identity: Female Cognitive needs: No Hearing needs: No Vision needs: Yes Female Reproductive History Menstrual Age of Menarche: 12 Review of Systems Const All systems reviewed & are unremarkable except as noted in HPI and below Reports as per HPI and Reports no additional complaints GI Reports no additional complaints Reports no additional complaints Assessment & Plan Assessment & Plan (1) Microscopic hematuria: Comment: Resolved Code(s): R31.29 - Other microscopic hematuria Category: Medical Plan: Repeat urine dip showed no evidence of microscopic hematuria, the patient was reassured. All questions answered, the patient verbalized understanding. Coding Level of Care Code Est Pt Level 3 (90297) Diagnoses Microscopic hematuria R31.29
[2024-10-05 10:54] VITALS: BP 126/74; BMI 38.7
== END 2024-10-05 11:31 | disposition home or self-care (01) ==
LOC: HO.HWS 10:50
PROVIDERS: PCP Internal Medicine; Visit Provider Obstetrics & Gynecology
DX: R31.29 Other microscopic hematuria (principal)
CPT/HCPCS: 99213

== ENCOUNTER → 2024-10-05 10:50 | Outpatient (BNVA) | payer MEDICARE, SELFPAY | PROVIDERS: PCP Internal Medicine; Visit Provider Obstetrics & Gynecology | DX: R31.29 Other microscopic hematuria (principal) | CPT/HCPCS: 99212 ==

== ENCOUNTER 2025-01-21 07:43 | Outpatient (REF) | payer MEDICARE, SELFPAY ==
--- OUTSIDE RECORDS SUMMARY | 2025-01-21 07:45 | XMS_ITS ---
Author Organization [facility] Address [address] [place] [address] Care Team Providers Care Outpatient Interviewing Clerk Name Role Phone Milli Colin MD Primary Care Provider Unavaila Charles Marinelli Unavailable [phone] Dela Cruz Encounters Encounter Location Date Provider Diagnosis [address] [id number] 10/16/2023 Charles Guerrier Plan Of Treatment Next Appt Details Provider Name:Charles Guerrier , 03/31/2025 12:00:00 PM, [address] [place] [address], [id number], Progress Notes * Stefania DILLON MDOB:[birth year] (74 yo F)Acc No.[id number]:10/16/2023 Progress Note Patient:?Stefania DILLON Provider:?Charles Guerrier DPM :1950???Age:73 Y???Sex:Female D ate:10/16/2023 Address: [address] [id number] Pcp:Milli Colin MD Subjective: * Chief Complaints: * ???1. Dr Dela Cruz. * Medical History:? Objective: * Vitals:? Assessment: Plan: * Treatment: * Images: * The named appointment provid er may or may not be the originator of this progress note, and it is not deemed complete until electronically signed by the appointment provider. Sign off status: Pending * Provider:Ben Guerrier DPM Date:?2022 Generated for Bev gonzalez/Roni/Glenys on:?01/21/2025 07:45 AM EST
--- OUTSIDE RECORDS SUMMARY | 2025-01-21 07:45 | XMS_ITS ---
Author Organization [facility] Address [address] [place] [address] Care Team Providers Care General Engineer Name Role Phone Milli Colin MD Primary Care Provider Charles Renner Unavailable [phone] Allergies Allergen (clinical drug ingredient) Drug/Non Drug Allergy documented on EMR Reaction Allergy Type Onset Date Status Amoxicillin Unknown Drug Allergy Activ e Bactrim Unknown Drug Allergy Active REASON FOR VISIT At Risk Footcare, Painful Nail(s) aggrevated by shoes and causing difficulty standing/walking, Skinproblem(s) Medications Medication SIG (Take, Route, Frequency, Duration) Notes Start Date End Date Status Trelegy Ellipta 100-62.5-25 MCG/INH 1 puff Inhalation Once a day Active Triamterene-HCTZ 37.5-25 MG 1 tablet in the morning Orally Once a day for 30 day(s) Active metFORMIN HCl Active PriLOSEC 10 MG 1 packet Orally Once a day for 30 day(s) Active Glucosamine 500 MG 1 capsule with a susy l Orally Three times a day for 30 day(s) Active ZyrTEC Active Ammonium Lactate 12 % 1 application Exte rnally Twice a day for 30 days Active Fiber Active Aleve Active Centrum Silver Activ e Ventolin HFA 108 (90 Base) MCG/ACT 2 puffs as needed Inhalation every 6 hrs Active Social History Tobacco Use: Social History Observation Description Date Details (start date - stop date) Former Smoker NA - NA Tobacco Use/Smoking Question Answer Notes Are you a: former smoker Additional Findings: Tobacco Non-User Current no n-smoker Tobacco use other than smoking: Question Answer Notes Are you an other tobacco user? No Vital Signs Height 5 ft 1 in in 05/24/2024 Weight 186 lbs 05/24/2024 BMI 35.14 kg/m2 05/24/2024 Blood pressure systolic 120 mm Hg 05/24/20 Blood pressure diastolic 80 mm Hg 024 Procedures Procedure Date Ordered Date Performed Result Body Sit e 45773-MNKNUUG NAIL, 6 OR MORE 05/24/2024 N/A 99326-XUAR SKIN LESIONS, OVER 4 05/24/2024 N/A Encounters Encounter Location Date Provider Diagnosis [facility] [address] [address] 05/24/2024 Charlesanton ReeseChey Type 2 diabetes mellitus with diabetic peripheral angiopathy without gangrene E11.51 ; Tinea unguium B35.1 ; Pain in right toe(s) M79.674 ; Pain in left toe(s) M79.675 and Xerosis of skin L85.3 Assessments Encounter Date Diagnosis (ICD Code) Assessment Notes Treatment Notes Treatment Clinical Notes Section Notes 05/24/2024 Type 2 diabetes mellitus with diabetic peripheral angiopathy without gangrene (ICD-10 - E11.51) 05/24/2024 Tinea unguium (ICD-10 - B35.1) 05/24/2024 Pain in right toe(s) (ICD-10 - M79.674) 05/24/2024 Pain in left toe(s) (ICD-10 - M79.675) 05/24/2024 Xerosis of skin (ICD-10 - L85.3) Plan Of Treatment Medication Medication Name Sig Start Date Stop Date Notes Ammonium Lactate 12 % 1 application Exte rnally Twice a day for 30 days Pending Test Test Name Order Date 83516-NPZMCHR NAIL, 6 OR MORE 05/24/2024 55139-NTQF SKIN LESIONS, OVER 4 05/24/20 24 Next Appt Details Follow Up: prn, Reason: Provider Name:Charles Guerrier , 03/31/2025 12:00:00 PM, [address] [place] [address], [phone], Procedure Notes * Category Sub-Category Detail Notes Debride Nail 6-10 Nail debridement Due to the cl inical pathology outlined in the exam findings, performance of this nail treatment is medically necessary as its management by an unskilled/untrained nonprofessional would put this patients foot and overall health at risk. Therefore, debridement to affected nail(s), as described in exam ( TA, T1, T2, T4, T5, T6, T7, T9), was performed exclusively by the physician of record to reduce/remove overall nail length, girth, thickness, subungual debris, and necrotic tissue, by manual and/or electrical means through the use of a nail nipper and/or dremel-type flat grinder operator, to a more viable healthy nail plate or bed tissue 6-10 nails in total. Silver nitrate was used for any petechial bleeding as necessary. Definitive antifungal treatment options, both pharmaceutical and surgical, have been reviewed and discussed with the patient. The patient solely prefers the use of intermittent/as needed professional debridement services for their nail condition and understands the need for additional periodic treatments to maintain effectiveness in symptomatic relief - 05354 Keratoma Treatment Parring or Cutting o f Benign Hyperkeratotic Lesion(s) (-57) More than 4 Lesions - Due to the at risk nature of the patients medical condition as documented in the exam findings, performance of this keratoderma treatment is medically necessary as its management by an unskilled/untrained nonprofessional would put this patients foot and overall health at risk. Therefore, the benign hyperkeratotic lesions, ( 9) in total, locations as stated and described in the exam ( Medial plantar, IPJ, TA, Medial plantar, IPJ, T5, Lateral, Plantar, T9, SUB MTH (s), 1, B/L , SUB MTH (s), 5, Left , SUB MTH (s), 2, Right ,Plantar, Heel(s), B/L), were pared, and/or cut utilizing a sterile 15 blade, tissue nippers, and/or power dremel instrumentation by the physician of record - 16191, Q8 Progress Notes * Stefania DILLON MDOB:[birth year] (74 yo F)Acc No.[id number]:05/24/2024 Progress Note Patient:?Stefania DILLON M Provider:?Charles Guerrier DPM :1950???Age:74 Y???Sex:Female D ate:05/24/2024 Address:[id number] Pcp:Milli Colin MD Subjective: * Chief Complaints: * ???At Risk FootcarePainful N ail(s) aggrevated by shoes and causing difficulty standing/walkingSkin problem(s) * HPI: ???At Risk footcare:?Pt States Last PCP Visit:?Date?03/16/2024 ???Skin problems:?Nature:?dryness , scaling.?Location:?B/L .?Duration:?several days.?Course:?worse.? * ROS:?General/Constitutional:?Nausea?denies.?Vomiting?denies.?Hunger Thirst?denies.?Loss appetite?denies.?Chills?denies.?Fatigue?denies.?Fever?denies.?Night Sweats?denies.?Unexplained weight loss?denies.?Unexplained weight gain?denies.?HEENTM:?Dentures?denies.?Dizziness?denies.?Glasses/contacts?admits.?Retinopathy?den ies.?Blurred/double vision?denies.?TMJ?denies.?Discharge/drainage?denies.?Implants?denies.?Sore throat?denies.?Dental implants?denies.?Hard of hearing ?denies.?Difficulty chewing/swallowing/speaking?denies.?Nose bleeds?denies.?Sore mouth?denies.?Respiratory:?On O xygen?denies.?Pneumonia/pleurisy?denies.?Bronchitis?denies.?Emphysema?denies.?Co ughing?denies.?Cough blood?denies.?Shortness of breath?denies.?Wheezing?denies.?Cardiovascular:?Pacemaker?denies.?MVP?denies.?WPW?denies.?CHF?denies.?Heart attack?denies.?Septal defect?denies.?Rapid beat?denies.?Chest pain ?denies.?Atrial Fib.?denies.?Murmur/Palpitations?denies.?Gastrointestinal:?Hemorrhoids?denies.?Stomach/Abdominal pain?denies.?Dark blood stool?denies.?Irritable bowel ?denies.?Constipation?denies.?Diarrhea?denies.?Hematology:?Swelling?admits.?Clots?denies.?Varicose Veins?admits.?Bruising?denies.?Bleeding problem?denies.?Genitourinary:?Blood urine?denies.?Frequent/Painfu/urination/bladder control?denies.?Kidney stones?denies.?Infection (UTI)?denies.?Nephropathy?denies.?sex trans dis (STD)?denies.?Prostate?denies.?Musculoskeletal:?Hammertoes?admits.?Bunions?admits.?Back Pain?admits.?Muscle Cramps/ Resting?denies.?Muscle cramps / walking?denies.?Generalized aches and pains?admits.?Weakness?denies.?Integ.:?Clark?denies.?Scars?denies.?Corns/calluses?admits.?Ingrown nails?admits.?Painful nails?admits.?Open Sores?denies.?Rashes?denies.?Neurologic:?Difficulty sleeping?denies.?Brain disorder?denies.?Numbness?denies.?Balance t rouble?denies.?Confusion?denies.?Fainting/blackouts?denies.?Tingling?denies.?Cale mors?denies.? * Medical History:? * Surgical History:?Oral surge ry 2003 & 2008gall bladder 2005cyst- left breast 1981cataracts 03/09/12cervic surgery 03/2022 * Hospitalization/Major Diagno stic Procedure:?Denies Past Hospitalization * Family History:?Mother: dece ased.?Father: , kidney liver disease.? * Social History:?Tobacco Use:?Tobacco Use/Smoking?Are you a:?former smoker ?Additional Findings: Tobacco Non-User?Current non-smoker ?Tobacco use other than smoking?Are you an other tobacco user??No ???Miscellaneous:?Caffeine: yes, frequency:, 2-3 cups per day. ?Exercise: no. ?Occupation: Retired. * Medications:?TakingAleve Trena trum Silver Fiber Glucosamine 500 MG Capsule 1 capsule with a meal Orally Three times a day metFORMIN HCl PriLOSEC 10 MG Packet 1 packet Orally Once a day Trelegy Ellipta 100-62.5-25 MCG/INH Aerosol Powder Breath Activated 1 puff Inhalation Once a day Triamterene-HCTZ 37.5-25 MG Tablet 1 tablet in the morning Orally Once a day Ventolin HFA 108 (90 Base) MCG/ACT Aerosol Solution 2 puffs as needed Inhalation every 6 hrs ZyrTEC Medication List reviewed and reconciled with the patientTaking Aleve Taking Centrum Silver Taking Fiber Taking Glucosamine 500 MG Capsule 1 capsule with a meal Orally Three times a day Taking metFORMIN HCl Taking PriLOSEC 10 MG Packet 1 packet Orally Once a day Taking Trelegy Ellipta 100-62.5-25 MCG/INH Aerosol Powder Breath Activated 1 puff Inhalation Once a day Taking Triamterene-HCTZ 37.5-25 MG Tablet 1 tablet in the morning Orally Once a day Taking Ventolin HFA 108 (90 Base) MCG/ACT Aerosol Solution 2 puffs as needed Inhalation every 6 hrs Taking ZyrTEC Medication List reviewed and reconciled with the patient * Allergies:?AmoxicillinBactri myes[Allergies Verified] Objective: * Vitals:?Ht: 5 ft 1 in, Wt:18 6, BMI:35.14, Shoe size:7.5, BP:120/80mm Hg, BS:124. * ???Past Orders: ???Lab:HEMOGLOBIN A1C (GLYCO HEMOGLOBIN) (Order Date - 05/24/2024) (Collection Date & Time - 03/23/2024) ? Value Reference Range ?HEMOGLOBIN A1C (HH) 5.8 * Examination: ???Ophthalmology Referral: ?DIABETES EYE EXAM?Procedure Performed:?Yes ?Date of Exam Performed?03/30/2024 ?Findings of Diabetic Eye Exam:?no retinopathy?Vascular: ?DP PULSES (B):? 0-1/4, B/L.?PT PULSES (B):? 0/4, B/L.?CAPILLARY FILL TIME:? delayed, all digits, B/L.?TROPHIC CONDITION-TEXTURE/ELASTICITY/TURGOR/HAIR GROWTH (B):? decreased, B/L.?TEMPERTURE GRADIENT (C):? decreased, cool to cool, proximal to distal, B/L.?PIGMENTATION:? mottled, B/L.?EDEMA (C):? 2/4, non-pitting, without aching pain, B/L, Leg(s), Ankle(s).?Nails: ?NAILS are:?Elongated, overgrown, dystrophic, lytic, greater than 3mm thick, discolored and friable with crumbly malodorous subungual debris, with pain on palpation, TA, T1, T2, T4, T5, T6, T7, T9, all other nails not described with characteristics as possessing mycosis are elongated, overgrown, and dystrophic.?Dermatologic: ?SKIN FINDINGS:? Skin exam reveals Keratotic lesion(s) located at, Medial plantar, IPJ, TA, Medial plantar, IPJ, T5, Lateral, Plantar, T9, SUB MTH (s), 1, B/L , SUB MTH (s), 5, Left , SUB MTH (s), 2, Right ,Plantar, Heel(s), B/L , Skin shows sign(s) of, dryness, scaling, in a stocking fashion, no fissure(s) present, B/L.?Orthopedic: ?MUSCLE STRENGTH:?5/5 all groups in a symmetrical fashion , B/L.?FOOT MORPHOLOGY:?Pes Planus structure, No Charcot collapse/destruction noted at MTJ.?DIGITAL DEFORMITIES:?Digital contracture, PIPJ, 2-5 B/L, incompl-reducible to push-up test, no over, nor underlapping.?FOOTWEAR:?fair condition.?Neurological: ?SENSORY:?Neurological exam reveals intact sensorium, pain sensation normal, vibration sensation intact, pinprick sensation is normal in the lower extremities, 5.07 monofilament test performed at plantar aspects of 5 varied sites per foot shows sensation, normal, B/L, Pt denies, anesthesia, burning, paresthesia, tingling, B/L.?General Examination: ?GENERAL APPEARANCE:?Reveals a pleasant, alert, well nourished, well developed, well hydrated individual, who demonstrates proper attention to hygiene/body habitus, and is in no acute distress , Pt serves as own historian for office visit today.?ORIENTED:?person, place, and time.?FOOT EXAM:?Lower Extremity Neurological Exam performed:?Yes ?Visual exam of foot performed:?Yes ?Date?05/24/2024 ?Footwear Evaluation?Footwear Evaluation performed:?Yes??? Assessment: * Assessment: 1.?Type 2 diabetes mellitus with diabetic peripheral angiopathy without gangrene - E11.51???2.?Tinea unguium - B35.1???3.?Pain in right toe(s) - M79.674???4.?Pain in left toe(s) - M79.675???5.?Xerosis of skin - L85.3???Specify :Acute problem, Uncomplicated (3),Rx Management (4)??? Plan: * Treatment: 2.?Tinea unguium?Procedure: 74169-LIAVCVA NAIL, 6 OR MORE 3.?Xerosis of skin? Start Ammonium Lactate Cream, 12 %, 1 application, Externally, Twice a day, 30 days, 60, Refills 2.?? * Procedures:?Debride Nail 6-10:?Nail debridement?Due to the clinical pathology outlined in the exam findings, performance of this nail treatment is medically necessary as its management by an unskilled/untrained nonprofessional would put this patients foot and overall health at risk. Therefore, debridement to affected nail(s), as described in exam (?TA,?T1,?T2,?T4,?T5,?T6,?T7,?T9), was performed exclusively by the physician of record to reduce/remove overall nail length, girth, thickness, subungual debris, and necrotic tissue, by manual and/or electrical means through the use of a nail nipper and/or dremel-type flat grinder operator, to a more viable healthy nail plate or bed tissue 6- 10 nails in total. Silver nitrate was used for any petechial bleeding as necessary. Definitive antifungal treatment options, both pharmaceutical and surgical, have been reviewed and discussed with the patient. The patient solely prefers the use of intermittent/as needed professional debridement services for their nail condition and understands the need for additional periodic treatments to maintain effectiveness in symptomatic relief - 52194.?Keratoma Treatment:?Parring or Cutting of Benign Hyperkeratotic Lesion(s)?(-57) More than 4 Lesions - Due to the at risk nature of the patients medical condition as documented in the exam findings, performance of this keratoderma treatment is medically necessary as its management by an unskilled/untrained nonprofessional would put this patients foot and overall health at risk. Therefore, the benign hyperkeratotic lesions, ( 9) in total, locations as stated and described in the exam (?Medial plantar,?IPJ,?TA,?Medial plantar,?IPJ,?T5,?Lateral,?Plantar,?T9,?SUB MTH (s),?1,?B/L?,?SUB MTH (s),?5,?Left?,?SUB MTH (s),?2,?Right?,Plantar,?Heel(s),?B/L), were pared, and/or cut utilizing a sterile 15 blade, tissue nippers, and/or power dremel instrumentation by the physician of record - 64194, Q8.? * Procedure Codes:?89625 DEBRI DE NAIL, 6 OR MORE, Modifiers: XS 75145 TRIM SKIN LESIONS, OVER 4, Modifiers: XS , Q8 * Preventive Medicine:? ??Counseling:?Discussion:?-13: Office or other outpatient visit for the evaluation and management of an established patient, which required a medically appropriate history and/or examination and LOW level of DECISION MAKING for: 1 STABLE ACUTE UNCOMPLICATED PROBLEM, 2 OR MORE MINOR PROBLEMS, OR 1 STABLE CHRONIC PROBLEM, THAT POSE(S) A LOW RISK FOR MORBIDITY/MORTALITY. The visit on the day of the encounter encompassed interpreting the data and educating the patient as to the nature of their condition, treatment options available according to their individual PMH, meds, allergies, and overall health/living conditions, as well as any potential risks or complications that may occur from a failure to adhere to, and participate in, the recommended course of therapy. The discussion included a complete verbal, and/or written explanation of the examination results, any x-rays taken, the proposed diagnosis, and outline of the treatment plan. A schedule for future care needs was also explained. The patient verbalized an understanding of the instructions at this time and agreed to be an active participant in their treatment. If the patient should think of any questions or concerns after the visit, I have encouraged the patient to call the office.?Xerosis:?The patient was counseled on the diagnosis, potential etiologies, and treatment options for their skin condition. We discussed the risks and benefits of each option from performing no treatment, to utilizing OTC topical skin creams/ointments, to utilizing prescription topical creams/ointments, to utilizing customized compounded topical medications and use of nocturnal occlusion with any/all previously detailed therapies. We discussed the advantages and disadvantages of each possible treatment and importance for adherence to all the recommended therapies for optimum success and avoid potential complications such as open sore/infection/possible hospitalization. We discussed the potential effectiveness of each topical preparation as well as each ones possible side effects and/or patient medication interactions. Patient questions re: use, dosage, successful outcomes, and application consistency were reviewed and the patient verbalized that all answers were clearly understood. The patient has decided to apply Rx skin creams to their feet save the interspaces while paying special attention to the heels. Such was sent to their pharmacy at the time of visit.? ??Screening/Special Tests:?Fall Risk?Screening:?No falls in the past year ?FALLS: Screening for Future Fall Risk?Have you had any falls with injury in the past year??No * Follow Up:?prn * Images: * Sign off status: Completed true * Provider:?Charles Guerrier DPM Date:?2023 Generated for Bev gonzalez/Roni/Glenys on:?01/21/2025 07:45 AM EST History and Physical Notes * HPI (History of Present Illness) Category Sub-Category Detail Notes Category Not es Skin problems Nature: dryness , scaling Location: B/L Duration: several days Course: worse At Risk footcare Pt States Last PCP Visit: Date: Examination Category Sub-Category Detail Notes Category Not es Neurological SENSORY: Neurological exa m reveals intact sensorium, pain sensation normal, vibration sensation intact, pinprick sensation is normal in the lower extremities, 5.07 monofilament test performed at plantar aspects of 5 varied sites per foot shows sensation, normal, B/L, Pt denies, anesthesia, burning, paresthesia, tingling, B/L Dermatologic SKIN FINDINGS: Skin exam reveal s Keratotic lesion(s) located at, Medial plantar, IPJ, TA, Medial plantar, IPJ, T5, Lateral, Plantar, T9, SUB MTH (s), 1, B/L , SUB MTH (s), 5, Left , SUB MTH (s), 2, Right ,Plantar, Heel(s), B/L , Skin shows sign(s) of, dryness, scaling, in a stocking fashion, no fissure(s) present, B/L Orthopedic FOOT MORPHOLOGY: Pes Planus stru cture, No Charcot collapse/destruction noted at MTJ FOOTWEAR: fair condition DIGITAL DEFORMITIES: Digital contracture , PIPJ, 2-5 B/L, incompl-reducible to push-up test, no over, nor underlapping MUSCLE STRENGTH: 5/5 all groups in a symmetrical fashion , B/L General Examination GENERAL APPEARANCE: Reveals a pleasant, alert, well nourished, well developed, well hydrated individual, who demonstrates proper attention to hygiene/body habitus, and is in no acute distress , Pt serves as own historian for office visit today FOOT EXAM: Lower Extremity Neurological Exa m performed:: Yes Visual exam of foot performed:: Yes Date: 05/24/2024 ORIENTED: person, place, and t paxton Footwear Evaluation Footwear Evaluation performe d:: Yes Ophthalmology Referral DIABETES EYE EXAM Procedure Perform ed:: Yes ?Date of Exam Performed: 03/30/2024 Findings of Diabetic Eye Exam:: no retin opathy Vascular DP PULSES (B): 0-1/4, B/L PT PULSES (B): 0/4, B/L CAPILLARY FILL TIME: delayed, all digits , B/L TEMPERTURE GRADIENT (C): decreased, cool to cool, proximal to distal, B/L TROPHIC CONDITION-TEXTURE/ELASTICITY/TURGOR/HAIR GROWTH (B): decreased, B/L EDEMA (C): 2/4, non-pitting, wi thout aching pain, B/L, Leg(s), Ankle(s) PIGMENTATION: mottled, B/L Nails NAILS are: Elongated, overg rown, dystrophic, lytic, greater than 3mm thick, discolored and friable with crumbly malodorous subungual debris, with pain on palpation, TA, T1, T2, T4, T5, T6, T7, T9, all other nails not described with characteristics as possessing mycosis are elongated, overgrown, and dystrophic
--- OUTSIDE RECORDS SUMMARY | 2025-01-21 07:45 | XMS_ITS ---
Author Organization [facility] Address [address] [place] [address] Care Team Providers Care Hardware Engineering Manager Name Role Phone Milli Colin MD Primary Care Provider Unavaila Charles Marinelli [phone] REASON FOR VISIT BUY Wart Stick Encounters Encounter Location Date Provider Diagnosis [address] [phone] 03/01/2024 Charles Guerrier Plan Of Treatment Next Appt Details Provider Name:Charles Guerrier , 03/31/2025 12:00:00 PM, [address] [place] [address], [phone], Progress Notes * Stefania DILLON MDOB:[birth year] (73 yo F)Acc No.[id number]:03/01/2024 Patient:?Stefania Dillon :1950???Age:73 Y???Sex:Female Address: [place] [address] * true * Date:? Generated for Printi ng/Roni/eTransmitting on:?01/21/2025 07:44 AM EST
[2025-01-21 11:53] LABS: MANUAL DIFF FLAG NO
[2025-01-21 11:59] LABS: Basophils Absolute Auto 0.1 X10*3/uL (0.0-0.2); Basophils Percent Auto 0.9 % (0-2); Eosinophils Absolute Auto 0.2 X10*3/uL (0.0-0.4); Hemoglobin 12.6 g/dl (12.0-16.0); Imm Gran Abs Auto 0.05 X10*3/uL (0.00-0.03); Imm Gran Pct Auto 0.6 % (0.0-0.4); Lymphocytes Absolute Auto 2.7 X10*3/uL (1.2-4.9); Lymphocytes Percent Auto 31.1 % (20-40); Mean Corpuscular HGB Conc 33.2 g/dl (31.0-35.0); Mean Corpuscular Hemoglobin 32.1 pg (27.0-33.0); Mean Corpuscular Volume 96.7 fL (80.0-98.0); Mean Platelet Volume 10.5 fL (9.4-12.3); Monocytes Absolute Auto 0.8 X10*3/uL (0.1-1.2); Monocytes Percent Auto 8.6 % (2-11); Neutrophils Absolute Auto 4.9 x10*3/uL (2.0-8.3); Neutrophils Percent Auto 56.8 % (45-73); Platelet Count 280 X10*3/uL (160-400); Red Blood Count 3.93 X10*6/uL (4.20-5.50); Red Cell Distribution Width 13.2 % (11.0-16.0); White Blood Count 8.7 X10*3/uL (4.8-10.8)
[2025-01-21 12:17] LABS: Estimated Average Glucose 123 mg/dL; Hemoglobin A1c % 5.9 % (<6.0); Total Hemoglobin (HGBA1C) 3322.2434 umol/L
[2025-01-21 12:24] LABS: Creatinine Urine 117.86 mg/dL; Microalbum/Creatinine Ratio Ur 6.7 ug/mg cr (<30)
[2025-01-21 12:32] LABS: Alanine Aminotransferase 17 U/L (0-31); Albumin Level 3.8 g/dL (3.5-5.0); Alkaline Phosphatase 71 U/L (39-117); Anion Gap 12 (12-20); Aspartate Amino Transferase 22 U/L (5-31); Bilirubin Total 0.6 mg/dL (0.0-1.0); Blood Urea Nitrogen 19 mg/dL (9-16); Calcium 9.3 mg/dL (8.4-10.2); Carbon Dioxide 28 mmol/L (22-29); Chloride 104 mmol/L (96-108); Cholesterol 180 mg/dL (<200); Estimated Glomerular Filt Rate > 60; Glucose Fasting 115 mg/dL (60-99); HDL Cholesterol 57 mg/dL (>40); LDL Cholesterol Calculated 102 mg/dL (<100); Potassium 4.3 mmol/L (3.3-5.1); Sodium 140 mmol/L (135-145); Triglycerides 106 mg/dL (<150)
[2025-01-21 12:38] LABS: Vitamin D 25-OH Total 92.3 ng/mL (>30)
== END 2025-01-21 07:44 | disposition home or self-care (01) ==
LOC: HO.HMGCLDS 07:43
PROVIDERS: PCP Internal Medicine; Visit Provider Internal Medicine
DX: E66.3 Overweight (principal); E11.9 Type 2 diabetes mellitus without complications; J44.9 Chronic obstructive pulmonary disease, unspecified
CPT/HCPCS: 36415; 80053; 80061; 82043; 82306; 82570; 83036; 85025

== ENCOUNTER 2025-01-24 12:55 | Outpatient (AMB) | payer MEDICARE, SELFPAY ==
[2025-01-24 13:00] VITALS: BP 124/66; PULSE 72; RESP 20; TEMP 37; O2SAT 95; BMI 39.1
--- NOTE | 2025-01-24 13:00 | A.OFFPC_ITS ---
Vital Signs 01/24/25 13:00 Height 5 ft 1 in Weight 207 lb BMI 39.1 BP 124/66 Blood Pressure Location Rt brachial Position Sitting Respiration 20 Pulse 72 Pulse Source Pulse Oximeter Temp 98.6 F Temp Source Oral Pulse Oximetry (%) 95 Oxygen Delivery Method Room Air Intake Visit Reasons: 6 months follow up visit. Intake Note: Pt is here today for 6 months follow up. Allergies Penicillins Allergy (Unknown, Verified 01/24/25 13:00) pt does not know she was a child Sulfa (Sulfonamide Antibiotics) Allergy (Unknown, Verified 01/24/25 13:00) Unknown Medication List - Last Reconciled 01/24/25 by Milli Colin MD albuterol sulfate 90 mcg/actuation (Ventolin HFA) 2 puffs inhalation Q6H PRN ascorbic acid (vitamin C) 500 mg PO DAILY bisoprolol fumarate 5 mg PO DAILY blood sugar diagnostic (RealDuch Ultra Blue Test Strip) As directed calcium carbonate (Calcium 600) 1,200 mg PO QDAY cetirizine (Zyrtec) 10 mg PO DAILY cholecalciferol (vitamin D3) 25 mcg PO DAILY rpnibreyley-scanccavg-uqllzozf 100-62.5-25 mcg (Trelegy Ellipta) 1 ea PO DAILY glucosamine HCl 1,500 mg PO DAILY lancets (RealDuch Delica Lancets) As directed metformin 500 mg PO BID multivitamin (Multiple Vitamins tablet) 1 tab PO DAILY omega 7-svv-xtx-fish oil 1,000 (120-180) mg (Fish Oil) 1 cap PO DAILY omeprazole magnesium (Prilosec OTC) 20 mg PO DAILY [oxygen concentrator with portability including oxygen supplies. 2 liters/min flow rate] triamterene-hydrochlorothiazid 37.5-25 mg 1 tab PO DAILY Tobacco use date assessed: 01/24/25 Fall risk assessment: 1 Fall in past year Last assessed Fall Risk: 01/24/25 Dental Screening Dental Screen Date: 01/24/25 Did you have a dental visit in the last 12 months?: Yes Did you have a dental problem in the last 6 months where you did not have access to dental care?: No Was dental information given to patient?: Patient has dentist HPI 6 months follow up visit. HPI Details Patient presents for the follow-up of type 2 diabetes hypertension O2 dependent COPD. Patient has been under lot of stress feeling anxious and upset about a political situation. She has been eating more sweets and gaining weight. She denies suicide ideation [facility] Medical History Annual physical exam Arthritis History of DVT (deep vein thrombosis) GERD (gastroesophageal reflux disease) Dependence on nocturnal oxygen therapy Postmenopausal bleeding Vaginal prolapse Increased urinary frequency Vitamin D deficiency MORRO (obstructive sleep apnea) Nocturnal hypoxemia Hypoxia Palpitations Overweight Mammogram normal Colon cancer screening DM (diabetes mellitus) Osteoarthritis GERD (gastroesophageal reflux disease) COPD (chronic obstructive pulmonary disease) Surgical History Hx of cholecystectomy History of cataract H/O colonoscopy Family History Father ETOH abuse Cirrhosis Mother COPD (chronic obstructive pulmonary disease) Diabetes Brother Substance use disorder Social History Household Members: Spouse Housing: House Alcohol intake: current Alcohol intake frequency: holidays/special occasions only Patient Tobacco Use Status: Former Tobacco user Years Smoked: 30 e-Cigarette/Vaping Use: Never Used service: No Current occupational status: retired Sexual orientation: Straight/Heterosexual Gender identity: Female Cognitive needs: No Hearing needs: No Vision needs: Yes Female Reproductive History Menstrual Age of Menarche: 12 Questionnaire PHQ-9 Over the last 2 weeks, how often have you been bothered by any of the following problems? 1. Little interest or pleasure in doing things: not at all 2. Feeling down, depressed, or hopeless: not at all 3. Trouble falling or staying asleep, or sleeping too much: not at all 4. Feeling tired or having little energy: not at all 5. Poor appetite or overeating: several days 6. Feeling bad about yourself - or that you are a failure or have let yourself or your family down: not at all 7. Trouble concentrating on things, such as reading the newspaper or watching television: not at all 8. Moving or speaking so slowly that other people could have noticed. Or the opposite - being so fidgety or restless that you have been moving around a lot more than usual: not at all 9. Thoughts that you would be better off or of hurting yourself in some way: not at all Total score: 1 Depression Screening Interpretation: Negative Depression Screening Done: Yes 91715 - PHQ-9 Billing: Yes Source: Developed by Drs. Bradly Womack, Luz Shrestha, Bello Euceda and colleagues, with an educational elizabet from [employer]. Thrive Questionnaire Date Thrive assessed: 01/24/25 I am a: Patient What is your living situation today?: I have a steady place to live Within the past 12 months, did the food you bought not last and you didn't have the money to get more?: Never true Within the past 12 months, did you worry whether your food would run out before you got money to buy more?: Never true Do you have trouble paying for medicines?: No Do you have trouble getting transportation to medical appointments?: No Do you have trouble paying your heating and electricity bill?: No Do you have trouble taking care of your child, family member or friend?: No Do you have trouble with day-to-day activities such as bathing, preparing meals, shopping, managing finances, etc.?: No Are you currently unemployed and looking for a job?: No Are you interested in more education?: I choose not to answer this question Please select the resources that you would like help with: None Currently or been in a relationship where the following occur: No concerns reported THRIVE Score: 0 AUDIT C Alcohol Use Questionnaire (AUDIT-C) 1. How often do you have a drink containing alcohol?: Never 3. How often do you have six or more drinks on one occasion?: Never Total Score: 0 CLARKE-7 AMB Questionnaire CLARKE-7 Date CLARKE - 7 assessed: 01/24/25 Feeling nervous, anxious, or on edge: 0 = Not at all Not being able to stop or control worryin = Not at all Worrying too much about different things: 0 = Not at all Trouble relaxin = Not at all Being so restless that it is hard to sit still: 0 = Not at all Becoming easily annoyed or irritable: 0 = Not at all Feeling afraid as if something awful might happen: 0 = Not at all Total CLARKE-7 score (0-4 normal; 5-9 mild; 10-14 moderate; 15-21 severe): 0 Source: Developed by Drs. Bradly Womack, Luz Shrestha, Bello Euceda and colleagues, with an educational elizabet from [employer]. CLARKE-7 Assessment Billing CLARKE-7 Assessment Tool: CLARKE-7 Assessment 44450 Review of Systems Const All systems reviewed & are unremarkable except as noted in HPI and below ENT Reports no additional complaints Card Reports no additional complaints Resp Reports no additional complaints GI Reports no additional complaints Reports no additional complaints Physical exam (Primary Care) Vital Signs: Last Vital Signs Temp 98.6 F 01/24/25 13:00 Pulse 72 01/24/25 13:00 Resp 20 01/24/25 13:00 BP 124/66 01/24/25 13:00 Pulse Ox 95 01/24/25 13:00 Oxygen Delivery Method Room Air 01/24/25 13:00 BMI result Body Mass Index 39.1 Tobacco/Smoking Status: Tobacco use Status Tobacco use date assessed 01/24/25 01/24/25 13:01 Patient Tobacco Use Status Former Tobacco user 01/24/25 13:01 e-Cigarette/Vaping Use Never Used 01/24/25 13:01 PHQ-9: PHQ-9 Score PHQ-9: Total score 1 01/24/25 13:01 Depression Screening Interpretation: Negative Thrive Assessment: Date of Thrive Assessment Date Thrive assessed 01/24/25 01/24/25 13:01 Currently or been in a relationship where the following occur: No concerns reported Const General: no acute distress HENMT Head: Yes normal to inspection Face and sinus: Yes normal facial exam Eyes General: appearance normal, both eyes and all related structures Neck Neck: Yes no lymphadenopathy and Yes supple Resp Effort & Inspection: normal respiratory effort Auscultation: clear to auscultation bilaterally Cardio Rhythm: regular rhythm Heart sounds: S1 normal heart sound present and S2 normal heart sound present GI Inspection: Yes normal to inspection Palpation (GI): Soft to palpation Percussion: Yes normal to percussion Coding Level of Care Code Est Pt Level 4 (38598) Diagnoses DM (diabetes mellitus) E11.9 COPD (chronic obstructive pulmonary disease) J44.9 Anxiety F41.9 HTN (hypertension) I10 Additional Codes CLARKE-7 Assessment Billing - CLARKE-7 Assessment Tool: CLARKE-7 Assessment 88867 ([id number]) PHQ-9 - 98266 - PHQ-9 Billing: Yes ([id number]) Assessment & Plan Assessment & Plan (1) DM (diabetes mellitus): Comment: On metformin, A1C 5.9 03/08 Code(s): E11.9 - Type 2 diabetes mellitus without complications Category: Medical Plan: Add Mounjaro 2.5 mg weekly to metformin. ADA diet increase physical activity weight loss discussed with the patient follow-up in 3 months with a fasting labs before (2) COPD (chronic obstructive pulmonary disease): Comment: Patient has chronic obstructive pulmonary disease, moderately severe. PFT on 02/27/2022 Clinically well controlled with the current regimen. Code(s): J44.9 - Chronic obstructive pulmonary disease, unspecified Category: Medical Plan: Continue Trelegy and supplemental O2 (3) Anxiety: Code(s): F41.9 - Anxiety disorder, unspecified Category: Medical Plan: Stress management discussed with the patient she declined counseling. Start sertraline 25 mg daily (4) HTN (hypertension): Code(s): I10 - Essential (primary) hypertension Category: Medical Plan: Continue current medications Orders: Orders Complete Blood Count Auto Diff 3 Months E11.9 - Type 2 diabetes mellitus without complications, J44.9 - Chronic obstructive pulmonary disease, unspecified Lipid Panel 3 Months E11.9 - Type 2 diabetes mellitus without complications, J44.9 - Chronic obstructive pulmonary disease, unspecified Hemoglobin A1c 3 Months E11.9 - Type 2 diabetes mellitus without complications, J44.9 - Chronic obstructive pulmonary disease, unspecified TSH reflex Free T4 3 Months E11.9 - Type 2 diabetes mellitus without complications, J44.9 - Chronic obstructive pulmonary disease, unspecified Microalbumin, Random (w Creat) 3 Months E11.9 - Type 2 diabetes mellitus without complications, J44.9 - Chronic obstructive pulmonary disease, unspecified Comprehensive [place]. Panel Fast 3 Months E11.9 - Type 2 diabetes mellitus without complications, J44.9 - Chronic obstructive pulmonary disease, unspecified Medications: New Mounjaro (tirzepatide) 2.5 mg (0.5 mL) subcut QWEEK 2 mL 1RF NS sertraline 25 mg PO DAILY 90 tabs 0RF
--- OUTSIDE RECORDS SUMMARY | 2025-01-24 15:29 | XMS_ITS | Patient Health Record ---
Author Organization [facility] Address [address] [facility] [place] [address] Care Team Providers Care Asphalt Screed Operator Name Role Phone Milli Colin MD Primary Care Provider Unavaila Charles Marinelli Unavailable [phone] Allergies Allergen (clinical drug ingredient) Drug/Non Drug Allergy documented on EMR Reaction Allergy Type Onset Date Status amoxicillin Amoxicillin Unknown Drug Allergy Act marcela sulfamethoxazole / trimethoprim Bactrim Unknown Drug Allergy Active Results Component Value Reference Range Notes HEMOGLOBIN A1C (GLYCOHEMOGLO BIN) Reviewed date:05/24/2024 11:38:01 AM Interpretation: Performing Lab: Notes/Report: HEMOGLOBIN A1C (HH) 5.8 Reason For Referral No Information Medications Medication SIG (Take, Route, Frequency, Duration) Notes Start Date End Date Status Trelegy Ellipta 100-62.5-25 MCG/INH 1 puff Inhalation Once a day Active Triamterene-HCTZ 37.5-25 MG 1 tablet in the morning Orally Once a day for 30 day(s) Active metFORMIN HCl Active PriLOSEC 10 MG 1 packet Orally Once a day for 30 day(s) Active Ventolin HFA 108 (90 Base) MCG/ACT 2 puffs as needed Inhalation every 6 hrs Active ZyrTEC Active Ammonium Lactate 12 % 1 application Exte rnally Twice a day for 30 days Active Fiber Active Glucosamine 500 MG 1 capsule with a susy l Orally Three times a day for 30 day(s) Active Aleve Active Centrum Silver Activ e Social History Tobacco Use: Social History Observation Description Date Details (start date - stop date) Former Smoker NA - NA Tobacco Use/Smoking Question Answer Notes Are you a: former smoker Additional Findings: Tobacco Non-User Current no n-smoker Alcohol Screen Question Answer Notes Did you have a drink containing alcohol in the p ast year? No Points 0 Interpretation Negative Tobacco use other than smoking: Question Answer Notes Are you an other tobacco user? No Problems Problem Type SNOMED Code ICD Code Onset Dates Problem Status W/U Status Risk Notes Problem Type 2 diabetes mellitus with peripheral angiopathy (475006404) Type 2 diabetes mellitus with diabetic peripheral angiopathy without gangrene (E11.51) Active confirmed Vital Signs Blood pressure diastolic 80 mm Hg 05/24/2024 Height 5 ft 1 in in 05/24/2024 Blood pressure systolic 120 mm Hg 05/24/2024 Weight 186 lbs 05/24/2024 BMI 35.14 kg/m2 05/24/2024 Procedures Procedure Date Ordered Date Performed Result Body Sit e 32907-AFBKXWA NAIL, 6 OR MORE 05/24/2024 N/A 11504-OQSZ SKIN LESIONS, OVER 4 05/24/2024 N/A Encounters Encounter Location Date Provider Diagnosis [facility] [address] 05/24/2024 Charles Guerrier Type 2 diabetes mellitus with diabetic peripheral angiopathy without gangrene E11.51 ; Tinea unguium B35.1 ; Pain in right toe(s) M79.674 ; Pain in left toe(s) M79.675 and Xerosis of skin L85.3 [facility] [address] 03/01/2024 Charles Guerrier Assessments Encounter Date Diagnosis (ICD Code) Assessment Notes Treatment Notes Treatment Clinical Notes Section Notes 05/24/2024 Type 2 diabetes mellitus with diabetic peripheral angiopathy without gangrene (ICD-10 - E11.51) 05/24/2024 Tinea unguium (ICD-10 - B35.1) 05/24/2024 Pain in right toe(s) (ICD-10 - M79.674) 05/24/2024 Pain in left toe(s) (ICD-10 - M79.675) 05/24/2024 Xerosis of skin (ICD-10 - L85.3) Plan Of Treatment Pending Test Test Name Order Date 70613-NSZNNKD NAIL, 6 OR MORE 04/25/2022 92867-SEPUGVB NAIL, 6 OR MORE 07/15/2022 95348-QXOVLJF NAIL, 6 OR MORE 09/26/2022 92345-QEYBNYT NAIL, 6 OR MORE 05/01/2023 37930-CFGPXKF NAIL, 6 OR MORE 10/06/2023 16634-NZDOIUV NAIL, 6 OR MORE 05/24/2024 00732-HXRY SKIN LESIONS, OVER 4 05/24/20 24 55650-TBTN SKIN LESIONS, OVER 4 10/06/20 63132-XOAW SKIN LESIONS, OVER 4 05/01/20 23 29330-CGBZ SKIN LESIONS, OVER 4 09/26/20 22 48454-LNBS SKIN LESIONS, OVER 4 07/15/20 22 46773-MHYE SKIN LESIONS, OVER 4 04/25/20 Next Appt Details Provider Name:Charles Guerrier , 03/31/2025 12:00:00 PM, [address] [place] [address], [phone], Insurance Providers Payer Name Payer Address Payer Phone Subscriber Number Group Number Insured Name Patient Relationship to Insured Coverage Start Date Coverage End Date AARP Medicare Complete [address] [address] [place], [place] [id number] Stefania Schuster Self - patient is the insured Medical (General) History Medical History History ICD Code Back,Hip,and Knee pain Cataracts type II diabetes Gall bladder problems Glaucoma Headaches/Migraines Lung disease Reflux ( GERD) Sinus conditions Measles Mumps Chicken pox Surgical History Surgery Date(Month/Year) Oral surgery 2004 & 2008 gall bladder 2005 cyst- left breast 1981 cataracts 03/09/12 cervic surgery 03/2022
--- OUTSIDE RECORDS SUMMARY | 2025-01-24 15:29 | XMS_ITS ---
Author Organization [facility] Address [address] [place] [address] Care Team Providers Care Airborne Operations Name Role Phone Milli Colin MD Primary Care Provider Unavaila Charles Marinelli [phone] REASON FOR VISIT BUY Wart Stick Encounters Encounter Location Date Provider Diagnosis [address] [address] 03/01/2024 Charles Guerrier Plan Of Treatment Next Appt Details Provider Name:Charles Guerrier , 03/31/2025 12:00:00 PM, [address] [place] [address], [phone], Progress Notes * Stefania DILLON MDOB:[birth year] (73 yo F)Acc No.[id number]:03/01/2024 Patient:?Stefania Dillon :1950???Age:73 Y???Sex:Female Address: [place] [address] * true * Date:? Generated for Printi ng/Faxing/eTransmitting on:?01/24/2025 03:29 PM EDT
--- OUTSIDE RECORDS SUMMARY | 2025-01-24 15:30 | XMS_ITS ---
Author Organization [facility] Address [address] [place] [address] Care Team Providers Care Lumber Sticker Name Role Phone Milli Colin MD Primary Care Provider Unavaila Charles Marinelli Unavailable [phone] Dela Cruz Encounters Encounter Location Date Provider Diagnosis [address] [address] 10/16/2023 Charles Guerrier Plan Of Treatment Next Appt Details Provider Name:Charles Guerrier , 03/31/2025 12:00:00 PM, [address] [place] [address], [phone], Progress Notes * Stefania DILOLN MDOB:[birth year] (74 yo F)Acc No.[id number]:10/16/2023 Progress Note Patient:?Stefania DILLON Provider:?Charles Guerrier DPM :1950???Age:73 Y???Sex:Female D ate:10/16/2023 Address: [id number] Pcp:Milli Colin MD Subjective: * Chief Complaints: [...] Guerrier DPM Date:?2022 Generated for Bev gonzalez/Roni/Glenys on:?01/24/2025 03:30 PM EDT
--- OUTSIDE RECORDS SUMMARY | 2025-01-24 15:30 | XMS_ITS ---
Author Organization [facility] Address [address] [facility] [place] [address] Care Team Providers Care Rn Concurrent Review Name Role Phone Milli Colin MD Primary Care Provider Charles Renner Unavailable [phone] Allergies Allergen (clinical drug ingredient) Drug/Non Drug Allergy documented on EMR Reaction Allergy Type Onset Date Status amoxicillin Amoxicillin Unknown Drug Allergy Act marcela sulfamethoxazole / trimethoprim Bactrim Unknown Drug Allergy Active REASON FOR [...] Ordered Date Performed Result Body Sit e 62755-LXGFIFG NAIL, 6 OR MORE 05/24/2024 N/A 06550-GAJS SKIN LESIONS, OVER 4 05/24/2024 N/A Encounters Encounter Location Date Provider Diagnosis [facility] [address] [address] 05/24/2024 Charles Rochaier Type 2 diabetes mellitus with diabetic peripheral [...] days Pending Test Test Name Order Date 94875-KSYDVST NAIL, 6 OR MORE 05/24/2024 34897-PKLQ SKIN LESIONS, OVER 4 05/24/20 24 Next Appt Details Follow Up: prn, Reason: Provider Name:Charles Guerrier , 03/31/2025 12:00:00 PM, [address] [place] [address], [phone], Procedure Notes * Category Sub-Category Detail Notes [...] use of a nail nipper and/or dremel-type grinder hardboard, to a more viable healthy nail plate [...] to maintain effectiveness in symptomatic relief - 63591 Keratoma Treatment Parring or Cutting o f [...] instrumentation by the physician of record - 62465, Q8 Progress Notes * Stefania DILLON MDOB:[birth year] (74 yo F)Acc No.[id number]:05/24/2024 Progress Note Patient:?Stefania DILLON M Provider:?Charles Guerrier DPM :1950???Age:74 Y???Sex:Female D ate:05/24/2024 Address:[address], [place], [id number] Pcp:Milli Colin MD Subjective: * Chief Complaints: [...] Medical History:? * Surgical History:?Oral surge ry 2004 & 2008gall bladder 2005cyst- left breast 1981cataracts [...] Management (4)??? Plan: * Treatment: 2.?Tinea unguium?Procedure: 69276-BGHNIAO NAIL, 6 OR MORE 3.?Xerosis of skin? [...] use of a nail nipper and/or dremel-type grinder hardboard, to a more viable healthy nail plate [...] to maintain effectiveness in symptomatic relief - 20780.?Keratoma Treatment:?Parring or Cutting of Benign Hyperkeratotic Lesion(s)?(-57) [...] instrumentation by the physician of record - 64832, Q8.? * Procedure Codes:?62155 DEBRI DE NAIL, 6 OR MORE, Modifiers: XS 96241 TRIM SKIN LESIONS, OVER 4, Modifiers: XS [...] Provider:?Charles Guerrier DPM Date:?2023 Generated for Bev gonzalez/Roni/Dannielleitting on:?01/24/2025 03:29 PM EDT History and Physical Notes * HPI (History [...]
== END 2025-01-24 14:37 | disposition home or self-care (01) ==
LOC: HO.HMCC 12:56
PROVIDERS: PCP Internal Medicine; Visit Provider Internal Medicine
DX: E11.9 Type 2 diabetes mellitus without complications (principal); J44.9 Chronic obstructive pulmonary disease, unspecified; F41.9 Anxiety disorder, unspecified; I10 Essential (primary) hypertension

== ENCOUNTER → 2025-01-24 12:55 | Outpatient (BNVA) | payer MEDICARE, SELFPAY | PROVIDERS: PCP Internal Medicine; Visit Provider Internal Medicine | DX: E11.9 Type 2 diabetes mellitus without complications (principal); F41.9 Anxiety disorder, unspecified; J44.9 Chronic obstructive pulmonary disease, unspecified; I10 Essential (primary) hypertension | CPT/HCPCS: 96127; 99212 ==

== ENCOUNTER 2025-02-03 11:22 | Outpatient (REF) | payer MEDICARE, SELFPAY ==
--- OUTSIDE RECORDS SUMMARY | 2025-02-03 13:56 | XMS_ITS | Patient Health Record ---
Author Organization [facility] Address [address] [place] [address] Care Team Providers Care Airplane Mechanic Apprentice Name Role Phone Mlili Colin MD Primary Care Provider Unavaila Charles Marinelli Unavailable [phone] Allergies Allergen (clinical drug ingredient) Drug/Non Drug [...] Type 2 diabetes mellitus with peripheral angiopathy (903471013) Type 2 diabetes mellitus with diabetic peripheral angiopathy without gangrene (E11.51) Active confirmed Vital Signs Blood pressure diastolic 80 mm Hg 05/24/2024 Height 5 ft 1 in in 05/24/2024 Blood pressure systolic 120 mm Hg 05/24/2024 Weight 186 lbs 05/24/2024 BMI 35.14 kg/m2 05/24/2024 Procedures Procedure Date Ordered Date Performed Result Body Sit e 83151-GOHNIYP NAIL, 6 OR MORE 05/24/2024 N/A 91083-HEFY SKIN LESIONS, OVER 4 05/24/2024 N/A Encounters Encounter Location Date Provider Diagnosis [facility] [address] 05/24/2024 Charles Guerrier Type 2 diabetes mellitus with diabetic peripheral angiopathy without gangrene E11.51 ; Tinea unguium B35.1 ; Pain in right toe(s) M79.674 ; Pain in left toe(s) M79.675 and Xerosis of skin L85.3 [facility] [address] 03/01/2024 Charles Guerrier Assessments Encounter Date Diagnosis [...] Treatment Pending Test Test Name Order Date 95720-ZBMLKWI NAIL, 6 OR MORE 04/25/2022 56376-WDEYYUK NAIL, 6 OR MORE 07/15/2022 94181-DITBHZV NAIL, 6 OR MORE 09/26/2022 59621-VNNPGNO NAIL, 6 OR MORE 05/01/2023 72757-LJXPSZB NAIL, 6 OR MORE 10/06/2023 20848-HRBCDTB NAIL, 6 OR MORE 05/24/2024 83317-TOCF SKIN LESIONS, OVER 4 05/24/20 24 13207-JYPM SKIN LESIONS, OVER 4 10/06/20 09590-OLZJ SKIN LESIONS, OVER 4 05/01/20 23 15248-DVBK SKIN LESIONS, OVER 4 09/26/20 22 32011-XIXQ SKIN LESIONS, OVER 4 07/15/20 22 54753-QFGN SKIN LESIONS, OVER 4 04/25/20 Next Appt Details Provider Name:Charles Guerrier , 03/31/2025 12:00:00 PM, [address] [place] [address], [phone], Insurance Providers Payer Name Payer Address Payer Phone Subscriber Number Group Number Insured Name Patient Relationship to Insured Coverage Start Date Coverage End Date AARP Medicare Complete [address] [address] [place], [place] [id number] [phone] [id number] Stefania Schuster Self - patient is the [...]
--- OUTSIDE RECORDS SUMMARY | 2025-02-03 13:56 | XMS_ITS ---
Author Organization [facility] Address [address] [place] [address] Care Team Providers Care Human Resource Professional Name Role Phone Milli Colin MD Primary Care Provider Unavaila Charles Marinelli [phone] REASON FOR VISIT BUY Wart Stick Encounters Encounter Location Date Provider Diagnosis [address] [address] 03/01/2024 Charles Guerrier Plan Of Treatment Next Appt Details Provider Name:Charles Guerrier , 03/31/2025 12:00:00 PM, [address] [place] [address], [phone], Progress Notes * Stefania DILLON MDOB:[birth year] (73 yo F)Acc No.[id number]:03/01/2024 Patient:?Stefania Dillon :1950???Age:73 Y???Sex:Female Address: [place] [address] * true * Date:? Generated for Printi ng/Faxing/eTransmitting on:?02/03/2025 01:56 PM EDT
--- OUTSIDE RECORDS SUMMARY | 2025-02-03 13:57 | XMS_ITS ---
Author Organization [facility] Address [address] [place] [address] Care Team Providers Care Observatory Director Name Role Phone Milli Colin MD Primary Care Provider Unavaila Charles Marinelli Unavailable [phone] Dela Cruz Encounters Encounter Location Date Provider Diagnosis [address] [address] 10/16/2023 Charles Guerrier Plan Of Treatment Next Appt Details Provider Name:Charles Guerrier , 03/31/2025 12:00:00 PM, [address] [place] [address], [phone], Progress Notes * Stefania DILLON MDOB:[birth year] (74 yo F)Acc No.[id number]:10/16/2023 Progress Note Patient:?Stefania DILLON Provider:?Charles Guerrier DPM :1950???Age:73 Y???Sex:Female D ate:10/16/2023 Address: [id number] Pcp:Milli Colin MD Subjective: * Chief Complaints: [...] Guerrier DPM Date:?2022 Generated for Bev gonzalez/Roni/Glenys on:?02/03/2025 01:56 PM EDT
--- OUTSIDE RECORDS SUMMARY | 2025-02-03 13:57 | XMS_ITS ---
Author Organization [facility] [place] Address [address] [facility] [address] Care Team Providers Care Plating Stripper Name Role Phone Milli Colin MD Primary Care Provider Charles Renner Unavailable [phone] Allergies Allergen (clinical drug ingredient) Drug/Non Drug [...] Ordered Date Performed Result Body Sit e 79628-SFNQJZB NAIL, 6 OR MORE 05/24/2024 N/A 29529-RSBN SKIN LESIONS, OVER 4 05/24/2024 N/A Encounters Encounter Location Date Provider Diagnosis [facility] [address] [address] 05/24/2024 Charles Rochaier Type 2 diabetes mellitus [...] days Pending Test Test Name Order Date 24566-VHLQGFX NAIL, 6 OR MORE 05/24/2024 39782-ZXOO SKIN LESIONS, OVER 4 05/24/20 24 Next Appt Details Follow Up: prn, Reason: Provider Name:Charles Guerrier , 03/31/2025 12:00:00 PM, [address] [place] [address], [phone], Procedure Notes * Category Sub-Category Detail Notes [...] use of a nail nipper and/or dremel-type snuff grinder and screener, to a more viable healthy nail plate [...] to maintain effectiveness in symptomatic relief - 19270 Keratoma Treatment Parring or Cutting o f [...] instrumentation by the physician of record - 66922, Q8 Progress Notes * Stefania DILLON MDOB:[birth year] (74 yo F)Acc No.[id number]:05/24/2024 Progress Note Patient:?Stefania DILLON M Provider:?Charles Guerrier DPM :1950???Age:74 Y???Sex:Female D ate:05/24/2024 Address:[address], [place], [place] Pcp:Milli Colin MD Subjective: * Chief Complaints: [...] Management (4)??? Plan: * Treatment: 2.?Tinea unguium?Procedure: 93679-UUKKBBY NAIL, 6 OR MORE 3.?Xerosis of skin? [...] use of a nail nipper and/or dremel-type snuff grinder and screener, to a more viable healthy nail plate [...] to maintain effectiveness in symptomatic relief - 13838.?Keratoma Treatment:?Parring or Cutting of Benign Hyperkeratotic Lesion(s)?(-57) [...] instrumentation by the physician of record - 23332, Q8.? * Procedure Codes:?34100 DEBRI DE NAIL, 6 OR MORE, Modifiers: XS 05903 TRIM SKIN LESIONS, OVER 4, Modifiers: XS [...] Guerrier DPM Date:?2023 Generated for Bev gonzalez/Roni/Dannielleitting on:?02/03/2025 01:56 PM EDT History and Physical Notes * [...]
== END 2025-02-03 11:23 | disposition home or self-care (01) ==
LOC: HO.MAMMO 11:22
PROVIDERS: PCP Internal Medicine; Visit Provider Internal Medicine
DX: Z12.31 Encounter for screening mammogram for malignant neoplasm of breast (principal)
CPT/HCPCS: 77063; 77067

== ENCOUNTER → 2025-02-03 11:30 | Outpatient (BNV) | payer MEDICARE, SELFPAY | PROVIDERS: PCP Internal Medicine; Visit Provider Internal Medicine | DX: Z12.31 Encounter for screening mammogram for malignant neoplasm of breast (principal) | CPT/HCPCS: 77063; 77067 ==

== ENCOUNTER 2025-03-02 10:51 | Outpatient (AMB) | payer MEDICARE, SELFPAY ==
[2025-03-02 10:54] VITALS: BP 124/68; PULSE 79; O2SAT 96; BMI 36.1
--- NOTE | 2025-03-02 10:54 | A.OFFVIS_ITS ---
Vital Signs 03/02/25 10:54 Height 5 ft 1 in Weight 191 lb BMI 36.1 BP 124/68 Blood Pressure Location Rt brachial Position Sitting Pulse 79 Pulse Source Doppler Pulse Oximetry (%) 96 Oxygen Delivery Method Nasal Cannula Oxygen Flow Rate 2 Intake Visit Reasons: COPD Intake Note: Patient is here for a follow up on COPD, no new symptoms Allergies Penicillins Allergy (Unknown, Verified 03/02/25 11:02) pt does not know she was a child Sulfa (Sulfonamide Antibiotics) Allergy (Unknown, Verified 03/02/25 11:02) Unknown Medication List - Last Reconciled 03/02/25 by Rosemary Masterson MD albuterol sulfate 90 mcg/actuation (Ventolin HFA) 2 puffs inhalation Q6H PRN ascorbic acid (vitamin C) 500 mg PO DAILY bisoprolol fumarate 5 mg PO DAILY blood sugar diagnostic (SureWavesuch Ultra Blue Test Strip) As directed calcium carbonate (Calcium 600) 1,200 mg PO QDAY cetirizine (Zyrtec) 10 mg PO DAILY cholecalciferol (vitamin D3) 25 mcg PO DAILY wewdgzqodvx-mposptqla-uocqmffs 100-62.5-25 mcg (Trelegy Ellipta) 1 ea PO DAILY glucosamine HCl 1,500 mg PO DAILY lancets (WorktopiaTouch Delica Lancets) As directed metformin 500 mg PO BID Mounjaro (tirzepatide) 2.5 mg (0.5 mL) subcut QWEEK NS multivitamin (Multiple Vitamins tablet) 1 tab PO DAILY omega 3-ppg-idq-fish oil 1,000 (120-180) mg (Fish Oil) 1 cap PO DAILY omeprazole magnesium (Prilosec OTC) 20 mg PO DAILY [oxygen concentrator with portability including oxygen supplies. 2 liters/min f low rate] sertraline 25 mg PO DAILY triamterene-hydrochlorothiazid 37.5-25 mg 1 tab PO DAILY Do you need a note to return to daycare/school/sports/work: No HPI HPI COPD: Details: Stefania is very pleasant 74 years old female, comes for follow-up after 6 months. She is a case of moderate obesity, nocturnal and exercise induced hypoxemia, along with advanced chronic obstructive pulmonary disease. Everything is under good control and she is very excited about the fact that she has lost 16 lb of weight, after using anti obesity agent,Mounjaro . She still using Trelegy Ellipta 1 inhalation daily and needs to use the rescue inhaler only once in a while. Physically much more active than before. Uses O2 2 L/minute at night, and uses her POC when she goes out doors, or doing any physical work at home. [facility] Medical History Annual physical exam Arthritis History of DVT (deep vein thrombosis) GERD (gastroesophageal reflux disease) Dependence on nocturnal oxygen therapy Postmenopausal bleeding Vaginal prolapse Increased urinary frequency Vitamin D deficiency MORRO (obstructive sleep apnea) Nocturnal hypoxemia Hypoxia Palpitations Overweight Mammogram normal Colon cancer screening DM (diabetes mellitus) Osteoarthritis GERD (gastroesophageal reflux disease) COPD (chronic obstructive pulmonary disease) Surgical History Hx of cholecystectomy History of cataract H/O colonoscopy Family History Father ETOH abuse Cirrhosis Mother COPD (chronic obstructive pulmonary disease) Diabetes Brother Substance use disorder Social History Household Members: Spouse Housing: House Alcohol intake: current Alcohol intake frequency: holidays/special occasions only Patient Tobacco Use Status: Former Tobacco user Years Smoked: 30 e-Cigarette/Vaping Use: Never Used service: No Current occupational status: retired Sexual orientation: Straight/Heterosexual Gender identity: Female Cognitive needs: No Hearing needs: No Vision needs: Yes Female Reproductive History Menstrual Age of Menarche: 12 Review of Systems Const All systems reviewed & are unremarkable except as noted in HPI and below Eyes Reports no additional complaints ENT Reports nasal congestion (Mild intermittent) Card Denies chest pain, Denies irregular heart rhythm and Reports leg edema (Only mild dependent edema when she is on her feet) Resp Reports as per HPI GI Reports no additional complaints Reports no additional complaints Musc Reports no additional complaints Skin/Breast Reports system reviewed and no additional complaints, except as documented Neuro Reports no additional complaints Psych Reports no additional complaints Physical Exam Vital Signs: BMI result Body Mass Index 36.1 Const General: healthy appearing (EXCEPT FOR BEING OVERWEIGHT), comfortable, no acute distress, alert and awake Orientation/consciousness: patient oriented x3 HEENT Head: Yes normal to inspection General nose exam: No nasal polyps present and No nasal discharge present Face and sinus: Yes sinuses nontender Mouth: oropharynx normal Throat: Yes posterior oropharynx normal Eyes General: appearance normal, both eyes and all related structures Neck Neck: Yes normal visual inspection, Yes no lymphadenopathy, Yes trachea midline and Yes no JVD Thyroid: Thyroid normal Chest Chest palpation & inspection: normal inspection of the chest, normal palpation of entire chest wall and no tenderness Resp Other: PERCUSSION NOTE RESONANT, BREATH SOUNDS SLIGHTLY DECREASED OVER THE BASILAR AREAS. LUNGS ARE CLEAR .NO WHEEZES RHONCHI OR CREPITATIONS ARE HEARD. Cardio Palpation: normal PMI Rate: regular rate Rhythm: regular rhythm Heart sounds: no gallops and no murmurs GI Palpation (GI): Soft to palpation, nontender, No hepatosplenomegaly present and no masses Auscultation: normal bowel sounds Back/Spine/Pelvis Thoracic/Lumbar Spine: thoracic and lumbar spine normal to inspection Skin General skin exam: no rashes or lesions noted Neuro General: patient oriented x3 and no focal motor deficits Cranial nerves: Yes CN's II-XII intact bilaterally Extrem General: Yes normal to inspection, Yes no clubbing, cyanosis or edema and Yes no calf tenderness Psych Appearance: grossly normal and well kempt Speech and movement: Normal speech and movement present Assessment & Plan Assessment & Plan (1) COPD (chronic obstructive pulmonary disease): Comment: Patient has chronic obstructive pulmonary disease, moderately severe. PFT on 02/27/2022 Clinically well controlled with the current regimen. Code(s): J44.9 - Chronic obstructive pulmonary disease, unspecified Category: Medical Plan: Continue using Trelegy Ellipta 1 inhalation. Albuterol HFA 2 puffs Q 4-6 hours p.r.n. (2) Hypoxia: Comment: SHE HAS NOCTURNAL HYPOXEMIA PART OF HER MILD MORRO AND COPD, WELL TREATED WITH USE OF O2 2 L/MINUTE SHE ALSO HAS EXERCISE INDUCED HYPOXEMIA, WELL TREATED WITH PORTABLE O2 Code(s): R09.02 - Hypoxemia Category: Medical Plan: Continue to use O2 2 L/minute at night. Use O2 2 L/minute with POC. When outdoors doing any physical activity. (3) MORRO (obstructive sleep apnea): Comment: As per sleep study her sleep apnea was only mild, and more in supine position. Being treated with conservative measures and is doing well. Nocturnal hypoxemia being treated with oxygen supplementation. Code(s): G47.33 - Obstructive sleep apnea (adult) (pediatric) Category: Medical Plan: Commended for having lost weight. Continue the current treatment plan. (4) Seasonal allergic rhinitis: Comment: .Mild, in active at present Code(s): J30.2 - Other seasonal allergic rhinitis Category: Medical Plan: OK to use Zyrtec 10 mg once a day only p.r.n. Coding Level of Care Code Est Pt Level 3 (63975) Diagnoses COPD (chronic obstructive pulmonary disease) J44.9 Hypoxia R09.02 MORRO (obstructive sleep apnea) G47.33 Seasonal allergic rhinitis J30.2
--- OUTSIDE RECORDS SUMMARY | 2025-03-02 13:14 | XMS_ITS | Patient Health Record ---
Author Organization [facility] Address [address] [place] [address] Care Team Providers Care Nurses Assistant Name Role Phone Milli Colin MD Primary Care Provider Unavaila Charles Marinelli Unavailable [phone] Allergies Allergen (clinical drug ingredient) Drug/Non Drug [...] Type 2 diabetes mellitus with peripheral angiopathy (578587049) Type 2 diabetes mellitus with diabetic peripheral angiopathy without gangrene (E11.51) Active confirmed Vital Signs Blood pressure diastolic 80 mm Hg 05/24/2024 Height 5 ft 1 in in 05/24/2024 Blood pressure systolic 120 mm Hg 05/24/2024 Weight 186 lbs 05/24/2024 BMI 35.14 kg/m2 05/24/2024 Procedures Procedure Date Ordered Date Performed Result Body Sit e 39899-WEQBFVR NAIL, 6 OR MORE 05/24/2024 N/A 73252-ZUTI SKIN LESIONS, OVER 4 05/24/2024 N/A Encounters Encounter Location Date Provider Diagnosis [facility] [address] [address] 05/24/2024 Charlesanton ReeseChey Type 2 diabetes mellitus [...] Treatment Pending Test Test Name Order Date 32417-UVFLOIH NAIL, 6 OR MORE 04/25/2022 18009-WTKWSCL NAIL, 6 OR MORE 07/15/2022 00001-QRDZKOW NAIL, 6 OR MORE 09/26/2022 52053-YQKNIOM NAIL, 6 OR MORE 05/01/2023 67401-ERXDOGR NAIL, 6 OR MORE 10/06/2023 28786-LPYCHVF NAIL, 6 OR MORE 05/24/2024 05703-ZVDY SKIN LESIONS, OVER 4 05/24/20 24 60369-HXEW SKIN LESIONS, OVER 4 10/06/20 06446-AXAX SKIN LESIONS, OVER 4 05/01/20 34924-OKOS SKIN LESIONS, OVER 4 09/26/20 26615-FXYR SKIN LESIONS, OVER 4 07/15/20 43394-GSTX SKIN LESIONS, OVER 4 04/25/20 Next Appt Details Provider Name:Charles Benny Guerrier , 05/05/2025 12:00:00 PM, [address] [place], [address], Insurance Providers Payer Name Payer Address Payer Phone Subscriber Number Group Number Insured Name Patient Relationship to Insured Coverage Start Date Coverage End Date A[employer] Medicare Complete [address] [address] [place] [address] [phone] [id number] Stefania Schuster Self - patient is the [...]
--- OUTSIDE RECORDS SUMMARY | 2025-03-02 13:14 | XMS_ITS ---
Author Organization [facility] Address [address] [place] [address] Care Team Providers Care Board Catcher Name Role Phone Milli Colin MD Primary Care Provider Unavaila Charles Marinelli [phone] REASON FOR VISIT BUY Wart Stick Encounters Encounter Location Date Provider Diagnosis [address] [address] 03/01/2024 Charles Guerrier Plan Of Treatment Next Appt Details Provider Name:Charles Guerrier , 05/05/2025 12:00:00 PM, [address] [place] [address], [phone], Progress Notes * Stefania DILLON MDOB:[birth year] (73 yo F)Acc No.[id number]:03/01/2024 Patient:?Stefania [place] :1950???Age:73 Y???Sex:Female Address: [place] [address] * true * Date:? Generated for Printi ng/Faxing/eTransmitting on:?03/02/2025 01:14 PM EDT
--- OUTSIDE RECORDS SUMMARY | 2025-03-02 13:14 | XMS_ITS ---
Author Organization [facility] Address [address] [facility] [place] [address] Care Team Providers Care Blocker Polishing Name Role Phone Milli Colin MD Primary Care Provider Charles Renner Unavailable [phone] Allergies Allergen (clinical drug ingredient) Drug/Non Drug [...] Ordered Date Performed Result Body Sit e 05922-REAICMT NAIL, 6 OR MORE 05/24/2024 N/A 63815-VCQD SKIN LESIONS, OVER 4 05/24/2024 N/A Encounters Encounter Location Date Provider Diagnosis [facility] [address] [address] 05/24/2024 Charles Rochaier Type 2 diabetes mellitus [...] days Pending Test Test Name Order Date 07488-LTTULZW NAIL, 6 OR MORE 05/24/2024 20311-CAZP SKIN LESIONS, OVER 4 05/24/20 24 Next Appt Details Follow Up: prn, Reason: Provider Name:Charles Guerrier , 05/05/2025 12:00:00 PM, [address] [place] [address], [address], Procedure Notes * Category Sub-Category Detail Notes [...] use of a nail nipper and/or dremel-type milk powder grinder, to a more viable healthy nail plate [...] to maintain effectiveness in symptomatic relief - 10650 Keratoma Treatment Parring or Cutting o f [...] instrumentation by the physician of record - 30872, Q8 Progress Notes * Stefania DILLON MDOB:[birth year] (74 yo F)Acc No.[id number]:05/24/2024 Progress Note Patient:?Stefania DILLON M Provider:?Charles Guerrier DPM :1950???Age:74 Y???Sex:Female D ate:05/24/2024 Address:[address], [place], [place] Pcp:Milli Colin MD Subjective: * Chief Complaints: [...] Management (4)??? Plan: * Treatment: 2.?Tinea unguium?Procedure: 34626-WAFUHBP NAIL, 6 OR MORE 3.?Xerosis of skin? [...] use of a nail nipper and/or dremel-type milk powder grinder, to a more viable healthy nail plate [...] to maintain effectiveness in symptomatic relief - 07025.?Keratoma Treatment:?Parring or Cutting of Benign Hyperkeratotic Lesion(s)?(-57) [...] instrumentation by the physician of record - 90011, Q8.? * Procedure Codes:?54906 DEBRI DE NAIL, 6 OR MORE, Modifiers: XS 73853 TRIM SKIN LESIONS, OVER 4, Modifiers: XS [...] Guerrier DPM Date:?2023 Generated for Bev gonzalez/Roni/Dannielleitting on:?03/02/2025 01:14 PM EDT History and Physical Notes * [...] cture, No Charcot collapse/destruction noted at [facility] FOOTWEAR EVALUATION: fair condition DIGITAL DEFORMITIES: Digital contracture , [...]
--- OUTSIDE RECORDS SUMMARY | 2025-03-02 13:15 | XMS_ITS ---
Author Organization [facility] Address [address] [place] [address] Care Team Providers Care Semiconductor Processing Group Leader Name Role Phone Milli Colin MD Primary Care Provider Unavaila Charles Marinelli Unavailable [phone] Dela Cruz Encounters Encounter Location Date Provider Diagnosis [address] [address] 10/16/2023 Charles Guerrier Plan Of Treatment Next Appt Details Provider Name:Charles Guerrier , 05/05/2025 12:00:00 PM, [address] [place] [address], [address], Progress Notes * Stefania DILLON MDOB:[birth year] (74 yo F)Acc No.[id number]:10/16/2023 Progress Note Patient:?Stefania DILLON Provider:?Charles Guerrier DPM :1950???Age:73 Y???Sex:Female D ate:10/16/2023 Address: [id number] Pcp:Milli Colin MD Subjective: * Chief Complaints: [...] Guerrier DPM Date:?2022 Generated for Bev gonzalez/Roni/Glenys on:?03/02/2025 01:14 PM EDT
== END 2025-03-02 11:17 | disposition home or self-care (01) ==
LOC: HO.HPS 10:52
PROVIDERS: PCP Internal Medicine; Visit Provider Internal Medicine
DX: J44.9 Chronic obstructive pulmonary disease, unspecified (principal); R09.02 Hypoxemia; G47.33 Obstructive sleep apnea (adult) (pediatric); J30.2 Other seasonal allergic rhinitis
CPT/HCPCS: 99213

== ENCOUNTER → 2025-03-02 10:51 | Outpatient (BNVA) | payer MEDICARE, SELFPAY | PROVIDERS: PCP Internal Medicine; Visit Provider Internal Medicine | DX: J44.9 Chronic obstructive pulmonary disease, unspecified (principal); R09.02 Hypoxemia; G47.33 Obstructive sleep apnea (adult) (pediatric); J30.2 Other seasonal allergic rhinitis; Z87.891 Personal history of nicotine dependence; Z99.81 Dependence on supplemental oxygen; Z79.899 Other long term (current) drug therapy | CPT/HCPCS: 99212 ==

== ENCOUNTER 2025-04-26 08:26 | Outpatient (REF) | payer MEDICARE, SELFPAY ==
--- OUTSIDE RECORDS SUMMARY | 2025-04-26 08:36 | XMS_ITS | Patient Health Record ---
Author Organization [facility] Address [address] [place] [address] Care Team Providers Care Chimney Repairer Name Role Phone Milli Colin MD Primary Care Provider Unavaila Charles Marinelli Unavailable [phone] Allergies Allergen (clinical drug ingredient) Drug/Non Drug [...] Type 2 diabetes mellitus with peripheral angiopathy (047050325) Type 2 diabetes mellitus with diabetic peripheral angiopathy without gangrene (E11.51) Active confirmed Vital Signs Blood pressure diastolic 80 mm Hg 05/24/2024 Height 5 ft 1 in in 05/24/2024 Blood pressure systolic 120 mm Hg 05/24/2024 Weight 186 lbs 05/24/2024 BMI 35.14 kg/m2 05/24/2024 Procedures Procedure Date Ordered Date Performed Result Body Sit e 36976-NDYQRBZ NAIL, 6 OR MORE 05/24/2024 N/A 29239-YEXI SKIN LESIONS, OVER 4 05/24/2024 N/A Encounters Encounter Location Date Provider Diagnosis [facility] [address] [address] 05/24/2024 [place] ReeseChey Type 2 diabetes mellitus [...] Treatment Pending Test Test Name Order Date [id number] NAIL, 6 OR MORE 04/25/2022 30246-WWKEGDC NAIL, 6 OR MORE 07/15/2022 88041-UIQVZOX NAIL, 6 OR MORE 09/26/2022 45350-CWTWLSS NAIL, 6 OR MORE 05/01/2023 44895-VNYDGSH NAIL, 6 OR MORE 10/06/2023 [id number]-GJTDCGM NAIL, 6 OR MORE 05/24/2024 78901-BLDA SKIN LESIONS, OVER 4 05/24/20 24 25952-IANS SKIN LESIONS, OVER 4 10/06/20 14834-RZUI SKIN LESIONS, OVER 4 05/01/20 82940-LNSO SKIN LESIONS, OVER 4 09/26/20 41859-KEFN SKIN LESIONS, OVER 4 07/15/20 81792-DGYZ SKIN LESIONS, OVER 4 04/25/20 Next Appt Details Provider Name:Charles Benny Guerrier , 05/05/2025 12:00:00 PM, [address] [place], [address], Insurance Providers Payer Name Payer Address Payer Phone Subscriber Number Group Number Insured Name Patient Relationship to Insured Coverage Start Date Coverage End Date AARP Medicare Complete [address] [address] [place] [address] [id number] Stefania Schuster Self - patient is the [...]
[2025-04-26 10:32] LABS: MANUAL DIFF FLAG NO
[2025-04-26 10:44] LABS: Basophils Absolute Auto 0.1 X10*3/uL (0.0-0.2); Basophils Percent Auto 0.9 % (0-2); Eosinophils Absolute Auto 0.2 X10*3/uL (0.0-0.4); Eosinophils Percent Auto 2.4 % (0-4); Hematocrit 38.6 % (37.0-47.0); Hemoglobin 13.1 g/dl (12.0-16.0); Imm Gran Abs Auto 0.04 X10*3/uL (0.00-0.03); Imm Gran Pct Auto 0.4 % (0.0-0.4); Lymphocytes Percent Auto 31.3 % (20-40); Mean Corpuscular HGB Conc 33.9 g/dl (31.0-35.0); Mean Corpuscular Volume 97.2 fL (80.0-98.0); Mean Platelet Volume 10.4 fL (9.4-12.3); Monocytes Absolute Auto 0.7 X10*3/uL (0.1-1.2); Monocytes Percent Auto 7.7 % (2-11); Neutrophils Absolute Auto 5.5 x10*3/uL (2.0-8.3); Neutrophils Percent Auto 57.3 % (45-73); Platelet Count 302 X10*3/uL (160-400); Red Blood Count 3.97 X10*6/uL (4.20-5.50); Red Cell Distribution Width 13.5 % (11.0-16.0); White Blood Count 9.6 X10*3/uL (4.8-10.8)
[2025-04-26 10:53] LABS: Estimated Average Glucose 111 mg/dL; Hemoglobin A1C 126.4062 umol/L; Hemoglobin A1c % 5.5 % (<6.0)
[2025-04-26 11:09] LABS: Alanine Aminotransferase 17 U/L (0-31); Albumin Level 4.2 g/dL (3.5-5.0); Alkaline Phosphatase 64 U/L (39-117); Anion Gap 14 (12-20); Aspartate Amino Transferase 22 U/L (5-31); Bilirubin Total 0.6 mg/dL (0.0-1.0); Blood Urea Nitrogen 22 mg/dL (9-16); Calcium 9.6 mg/dL (8.4-10.2); Carbon Dioxide 27 mmol/L (22-29); Chloride 103 mmol/L (96-108); Cholesterol 194 mg/dL (<200); Estimated Glomerular Filt Rate 50; Glucose Fasting 101 mg/dL (60-99); HDL Cholesterol 52 mg/dL (>40); LDL Cholesterol Calculated 119 mg/dL (<100); Potassium 3.6 mmol/L (3.3-5.1); Sodium 140 mmol/L (135-145); TSH reflex Free T4 1.69 uIU/mL (0.32-4.0); Total Protein 6.8 g/dL (6.5-8.0); Triglycerides 119 mg/dL (<150)
[2025-04-26 11:10] LABS: Creatinine Urine 185.74 mg/dL; Microalbum/Creatinine Ratio Ur 10.7 ug/mg cr (<30)
== END 2025-04-26 08:27 | disposition home or self-care (01) ==
LOC: HO.HMGCLDS 08:26
PROVIDERS: PCP Internal Medicine; Visit Provider Internal Medicine
DX: E11.9 Type 2 diabetes mellitus without complications (principal); J44.9 Chronic obstructive pulmonary disease, unspecified
CPT/HCPCS: 36415; 80053; 80061; 82043; 82570; 83036; 84443; 85025

== ENCOUNTER 2025-04-28 10:41 | Outpatient (AMB) | payer MEDICARE, SELFPAY ==
[2025-04-28 10:46] VITALS: BP 122/72; PULSE 72; RESP 18; TEMP 36.7; O2SAT 97; BMI 35.5
--- NOTE | 2025-04-28 10:46 | MHC.PC.OV ---
Vital Signs 04/28/25 10:46 Height 5 ft 1 in Weight 188 lb BMI 35.5 BP 122/72 Blood Pressure Location Lt brachial Position Sitting Respiration 18 Pulse 72 Pulse Source Pulse Oximeter Temp 98.0 F Temp Source Oral Pulse Oximetry (%) 97 Oxygen Delivery Method Room Air Intake Visit Reasons: 3m follow up Intake Note: Pt is here today for 3 months follow up. Allergies Penicillins Allergy (Unknown, Verified 04/28/25 10:54) pt does not know she was a child Sulfa (Sulfonamide Antibiotics) Allergy (Unknown, Verified 04/28/25 10:54) Unknown Medication List - Last Reconciled 04/28/25 by Milli Colin MD albuterol sulfate 90 mcg/actuation (Ventolin HFA) 2 puffs inhalation Q6H PRN ascorbic acid (vitamin C) 500 mg PO DAILY bisoprolol fumarate 5 mg PO DAILY blood sugar diagnostic ([employer] Ultra Blue Test Strip) As directed calcium carbonate (Calcium 600) 1,200 mg PO QDAY cetirizine (Zyrtec) 10 mg PO DAILY cholecalciferol (vitamin D3) 25 mcg PO DAILY jjtmsizkmrb-hpoachibx-jmyvoxrz 100-62.5-25 mcg (Trelegy Ellipta) 1 ea PO DAILY glucosamine HCl 1,500 mg PO DAILY lancets ([employer] Delica Lancets) As directed metformin 500 mg PO BID Mounjaro (tirzepatide) 2.5 mg (0.5 mL) subcut QWEEK NS multivitamin (Multiple Vitamins tablet) 1 tab PO DAILY omega 3-vqa-xsa-fish oil 1,000 (120-180) mg (Fish Oil) 1 cap PO DAILY omeprazole magnesium (Prilosec OTC) 20 mg PO DAILY [oxygen concentrator with portability including oxygen supplies. 2 liters/min flow rate] sertraline 25 mg PO DAILY triamterene-hydrochlorothiazid 37.5-25 mg 1 tab PO DAILY Tobacco use date assessed: 04/28/25 Fall risk assessment: No Falls in past year Last assessed Fall Risk: 04/28/25 Dental Screening Dental Screen Date: 04/28/25 Did you have a dental visit in the last 12 months?: Yes Did you have a dental problem in the last 6 months where you did not have access to dental care?: No Was dental information given to patient?: Patient has dentist HPI 3m follow up HPI Details Patient presents for the follow-up of type 2 diabetes hypertension COPD chronic anxiety, better on sertraline [facility] Medical History (Updated 04/28/25 @ 12:08 by Milli Colin MD) HTN (hypertension) Annual physical exam Arthritis History of DVT (deep vein thrombosis) GERD (gastroesophageal reflux disease) Dependence on nocturnal oxygen therapy Postmenopausal bleeding Vaginal prolapse Increased urinary frequency Vitamin D deficiency MORRO (obstructive sleep apnea) Nocturnal hypoxemia Hypoxia Overweight Mammogram normal Colon cancer screening DM (diabetes mellitus) Osteoarthritis GERD (gastroesophageal reflux disease) COPD (chronic obstructive pulmonary disease) Surgical History Hx of cholecystectomy History of cataract H/O colonoscopy Family History Father ETOH abuse Cirrhosis Mother COPD (chronic obstructive pulmonary disease) Diabetes Brother Substance use disorder Social History Household Members: Spouse Housing: House Alcohol intake: current Alcohol intake frequency: holidays/special occasions only Patient Tobacco Use Status: Former Tobacco user Years Smoked: 30 e-Cigarette/Vaping Use: Never Used service: No Current occupational status: retired Sexual orientation: Straight/Heterosexual Gender identity: Female Cognitive needs: No Hearing needs: No Vision needs: Yes Female Reproductive History Menstrual Age of Menarche: 12 Questionnaire Thrive Questionnaire Date Thrive assessed: 01/17/25 I am a: Patient What is your living situation today?: I have a steady place to live Within the past 12 months, did the food you bought not last and you didn't have the money to get more?: Never true Within the past 12 months, did you worry whether your food would run out before you got money to buy more?: Never true Do you have trouble paying for medicines?: No Do you have trouble getting transportation to medical appointments?: No Do you have trouble paying your heating and electricity bill?: No Do you have trouble taking care of your child, family member or friend?: No Do you have trouble with day-to-day activities such as bathing, preparing meals, shopping, managing finances, etc.?: No Are you currently unemployed and looking for a job?: No Are you interested in more education?: I choose not to answer this question Please select the resources that you would like help with: None Currently or been in a relationship where the following occur: No concerns reported THRIVE Score: 0 CLARKE-7 AMB Questionnaire CLARKE-7 Date CLARKE - 7 assessed: 01/24/25 Source: Developed by Drs. Bradly Womack, Luz Shrestha, Bello Euceda and colleagues, with an educational elizabet from [employer]. Review of Systems Const All systems reviewed & are unremarkable except as noted in HPI and below Eyes Reports no additional complaints ENT Reports no additional complaints Card Reports no additional complaints Resp Reports no additional complaints GI Reports no additional complaints Reports no additional complaints Physical exam (Primary Care) Vital Signs: Last Vital Signs Temp 98.0 F 04/28/25 10:46 Pulse 72 04/28/25 10:46 Resp 18 04/28/25 10:46 BP 122/72 04/28/25 10:46 Pulse Ox 97 04/28/25 10:46 Oxygen Delivery Method Room Air 04/28/25 10:46 BMI result Body Mass Index 35.5 Tobacco/Smoking Status: Tobacco use Status Tobacco use date assessed 04/28/25 04/28/25 10:48 Patient Tobacco Use Status Former Tobacco user 04/28/25 11:00 e-Cigarette/Vaping Use Never Used 04/28/25 10:46 Thrive Assessment: Date of Thrive Assessment Date Thrive assessed 01/17/25 04/28/25 10:46 Currently or been in a relationship where the following occur: No concerns reported Const General: no acute distress HENMT Head: Yes normal to inspection Face and sinus: Yes normal facial exam Neck Neck: Yes supple Resp Effort & Inspection: normal respiratory effort Auscultation: clear to auscultation bilaterally Cardio Rhythm: regular rhythm Heart sounds: S1 normal heart sound present and S2 normal heart sound present GI Inspection: Yes normal to inspection Palpation (GI): Soft to palpation Percussion: Yes normal to percussion Auscultation: normal bowel sounds Coding Level of Care Code Est Pt Level 4 (25939) Diagnoses DM (diabetes mellitus) E11.9 Overweight E66.3 COPD (chronic obstructive pulmonary disease) J44.9 HTN (hypertension) I10 Assessment & Plan Assessment & Plan (1) DM (diabetes mellitus): Comment: A1C 5.9 03/08 Code(s): E11.9 - Type 2 diabetes mellitus without complications Category: Medical Plan: A1c is 5.5, patient has been tolerating Mounjaro well. ADA diet increase physical activity weight loss discussed with the patient. Mounjaro dose will be increased to 5 mg in 3 months if the patient plateau on the weight loss (2) Overweight: Comment: Patient is trying to lose weight. Has lost about 10 more lb. Will continue to lose more. Code(s): E66.3 - Overweight Category: Medical Plan: Decreasing caloric intake increasing physical activity discussed with the patient (3) COPD (chronic obstructive pulmonary disease): Comment: Patient has chronic obstructive pulmonary disease, moderately severe. PFT on 02/27/2022 Clinically well controlled with the current regimen. Code(s): J44.9 - Chronic obstructive pulmonary disease, unspecified Category: Medical Plan: Continue inhalers supplemental O2 with exertion (4) HTN (hypertension): Code(s): I10 - Essential (primary) hypertension Category: Medical Plan: Continue current medications Orders: Orders Comprehensive [place]. Panel Fast 3 Months E11.9 - Type 2 diabetes mellitus without complications, E66.3 - Overweight, J44.9 - Chronic obstructive pulmonary disease, unspecified Complete Blood Count Auto Diff 3 Months E11.9 - Type 2 diabetes mellitus without complications, E66.3 - Overweight, J44.9 - Chronic obstructive pulmonary disease, unspecified Microalbumin, Random (w Creat) 3 Months E11.9 - Type 2 diabetes mellitus without complications, E66.3 - Overweight, J44.9 - Chronic obstructive pulmonary disease, unspecified Lipid Panel 3 Months E11.9 - Type 2 diabetes mellitus without complications, E66.3 - Overweight, J44.9 - Chronic obstructive pulmonary disease, unspecified Hemoglobin A1c 3 Months E11.9 - Type 2 diabetes mellitus without complications, E66.3 - Overweight, J44.9 - Chronic obstructive pulmonary disease, unspecified Medications: Refilled triamterene-hydrochlorothiazid 37.5-25 mg 1 tab PO DAILY 90 tabs 3RF sertraline 25 mg PO DAILY 90 tabs 3RF metformin 500 mg PO BID 180 tabs 3RF
--- OUTSIDE RECORDS SUMMARY | 2025-04-28 11:43 | XMS_ITS | Patient Health Record ---
Author Organization [facility] Address [address] [place] [address] Care Team Providers Care Timber Setter Name Role Phone Milli Colin MD Primary Care Provider Unavaila Charles Marinelli Unavailable [phone] Allergies Allergen (clinical drug ingredient) Drug/Non Drug [...] Type 2 diabetes mellitus with peripheral angiopathy ([id number]) Type 2 diabetes mellitus with diabetic peripheral angiopathy without gangrene (E11.51) Active confirmed Vital Signs Blood pressure diastolic 80 mm Hg 05/24/2024 Height 5 ft 1 in in 05/24/2024 Blood pressure systolic 120 mm Hg 05/24/2024 Weight 186 lbs 05/24/2024 BMI 35.14 kg/m2 05/24/2024 Procedures Procedure Date Ordered Date Performed Result Body Sit e 10877-HMARIXF NAIL, 6 OR MORE 05/24/2024 N/A 09346-IXES SKIN LESIONS, OVER 4 05/24/2024 N/A Encounters Encounter Location Date Provider Diagnosis [facility] [address] [address] 05/24/2024 [place] ReeseChey Type 2 diabetes mellitus [...] Treatment Pending Test Test Name Order Date [id number]-DYESRFM NAIL, 6 OR MORE 04/25/2022 48603-[id number] NAIL, 6 OR MORE 07/15/2022 81183-FYNKLIG NAIL, 6 OR MORE 05/01/2023 84186-LXYSKSA NAIL, 6 OR MORE 05/24/2024 34050-WGGXTKZ NAIL, 6 OR MORE 10/06/2023 01384-RDSNYGB NAIL, 6 OR MORE 09/26/2022 10894-PRUD SKIN LESIONS, OVER 4 09/26/20 22 42979-YPFZ SKIN LESIONS, OVER 4 10/06/20 23 26625-XGAU SKIN LESIONS, OVER 4 05/24/20 24 21372-ZIUQ SKIN LESIONS, OVER 4 05/01/20 23 20941-VBSX SKIN LESIONS, OVER 4 07/15/20 22 05629-RDEG SKIN LESIONS, OVER 4 04/25/20 Next Appt Details Provider Name:Charles Benny Guerrier , 05/05/2025 12:00:00 PM, [address] [place], [address], Insurance Providers Payer Name Payer Address Payer Phone Subscriber Number Group Number Insured Name Patient Relationship to Insured Coverage Start Date Coverage End Date AARP Medicare Complete [address] [address] [place] [address] [id number] Stefania Schuster Self - patient is the [...]
== END 2025-04-28 11:53 | disposition home or self-care (01) ==
LOC: HO.HMCC 10:42
PROVIDERS: PCP Internal Medicine; Visit Provider Internal Medicine
DX: E11.9 Type 2 diabetes mellitus without complications (principal); E66.3 Overweight; J44.9 Chronic obstructive pulmonary disease, unspecified; I10 Essential (primary) hypertension

== ENCOUNTER → 2025-04-28 10:41 | Outpatient (BNVA) | payer MEDICARE, SELFPAY | PROVIDERS: PCP Internal Medicine; Visit Provider Internal Medicine | DX: E11.9 Type 2 diabetes mellitus without complications (principal); E66.3 Overweight; Z68.35 Body mass index [BMI] 35.0-35.9, adult; J44.9 Chronic obstructive pulmonary disease, unspecified; I10 Essential (primary) hypertension; Z87.891 Personal history of nicotine dependence; Z71.3 Dietary counseling and surveillance | CPT/HCPCS: 99212 ==

== ENCOUNTER 2025-06-28 11:24 | Outpatient (REF) | payer MEDICARE, SELFPAY | END 2025-06-28 11:25 | disposition home or self-care (01) | LOC: HO.LNP 11:24 | PROVIDERS: PCP Internal Medicine; Visit Provider Obstetrics & Gynecology | DX: R10.2 Pelvic and perineal pain (principal); R31.29 Other microscopic hematuria; Z87.42 Personal history of other diseases of the female genital tract | CPT/HCPCS: 81002; 87086; 99212 ==

== ENCOUNTER 2025-06-28 11:24 | Outpatient (AMB) | payer MEDICARE, SELFPAY ==
--- NOTE | 2025-06-28 11:27 | A.OFFVIS_ITS ---
Vital Signs 06/28/25 11:29 Height 5 ft 1 in Weight 188 lb BMI 35.5 Intake Visit Reasons: pelvic pressure Beef Pluck Trimmer Required: No Information Interpreted: non-clinical & clinical Document Controller: Document Controller Present (Saira LOPEZ) Accompanied by: Self / Same As Patient Allergies Penicillins Allergy (Unknown, Verified 06/28/25 11:30) pt does not know she was a child Sulfa (Sulfonamide Antibiotics) Allergy (Unknown, Verified 06/28/25 11:30) Unknown Post menopausal: Yes HPI Comments Details: Presenting complaining of pelvic pressure upon urination no associated urinary frequency or dysuria or urgency, no vaginal discharge or bleeding or spotting. [facility] Medical History (Updated 06/28/25 @ 11:53 by Fredi Carbajal MD) HTN (hypertension) Annual physical exam Arthritis History of DVT (deep vein thrombosis) GERD (gastroesophageal reflux disease) Dependence on nocturnal oxygen therapy Postmenopausal bleeding Vaginal prolapse Increased urinary frequency Vitamin D deficiency MORRO (obstructive sleep apnea) Nocturnal hypoxemia Hypoxia Overweight Mammogram normal Colon cancer screening DM (diabetes mellitus) Osteoarthritis GERD (gastroesophageal reflux disease) COPD (chronic obstructive pulmonary disease) Surgical History Hx of cholecystectomy History of cataract H/O colonoscopy Family History Father ETOH abuse Cirrhosis Mother COPD (chronic obstructive pulmonary disease) Diabetes Brother Substance use disorder Social History Household Members: Spouse Housing: House Alcohol intake: current Alcohol intake frequency: holidays/special occasions only Patient Tobacco Use Status: Former Tobacco user Years Smoked: 30 e-Cigarette/Vaping Use: Never Used service: No Current occupational status: retired Sexual orientation: Straight/Heterosexual Gender identity: Female Cognitive needs: No Hearing needs: No Vision needs: Yes Female Reproductive History Menstrual Age of Menarche: 12 Review of Systems Const All systems reviewed & are unremarkable except as noted in HPI and below Physical Exam Vital Signs: BMI result Body Mass Index 35.5 General: Yes no CVA tenderness External Female Exam: normal external appearance and normal appearance of the urethra Speculum Exam - Vagina: normal appearance of the vagina, normal palpation, no lesions and no masses Speculum Exam - Cervix: normal appearance of the cervix, normal palpation, no lesions, no masses and nontender Bimanual exam- vagina & uterus: normal bimanual exam, normal palpation, uterine size normal, normal palpation, uterine shape normal, No Cervical tenderness present and non-tender Bimanual Exam- Adnexa, other: normal adnexae Back/Spine/Pelvis Back: no CVA tenderness Assessment & Plan Assessment & Plan (1) Pelvic pressure in female: Comment: History of endometrial polyp in 05/07 Code(s): R10.2 - Pelvic and perineal pain Category: Medical Plan: Urine dip done in the office was negative. Pelvic ultrasound ordered. Discussed with the patient the differential diagnosis of pelvic pain including but not limited to adnexal, uterine masses, endometrial polyp, GI the (Irritable bowel syndrome, diverticulitis, others), musculoskeletal, myofascial pain abdominal wall , adhesions and others causes. Will check results and treat accordingly. All questions answered, the patient verbalized understanding. Instructed the patient to schedule an ultrasound and a follow-up appointment in 2 weeks. All questions answered, the patient verbalized understanding and agreed with the plan. (2) Microscopic hematuria: Comment: Possible UTI Code(s): R31.29 - Other microscopic hematuria Category: Medical Plan: Urine dip showed microscopic hematuria with leukocytes , will send urine for culture treat with Macrobid 100 mg p.o. b.i.d. for 7 days and schedule a 2 week repeat urine dip Orders: Orders US pelvic and transvaginal Today R10.2 - Pelvic and perineal pain Medications: New nitrofurantoin monohyd/m-cryst 100 mg (Macrobid) 100 mg PO BID 10 caps 0RF 5 days Coding Level of Care Code Est Pt Level 3 (81516) Diagnoses Pelvic pressure in female R10.2 Microscopic hematuria R31.29
[2025-06-28 11:29] VITALS: BMI 35.5
--- OUTSIDE RECORDS SUMMARY | 2025-06-28 12:20 | XMS_ITS | Patient Health Record ---
Author Organization [facility] Address [address] [place] [address] Care Team Providers Care Couture Alterations Dressmaker Name Role Phone Dahlia(inactive) Beka FOURNIER Primary Care Provider U Jarrett Lee Jr Unavailable Allergies Allergen (clinical drug ingredient) Drug/Non Drug Allergy documented on EMR Reaction Allergy Type Onset Date Status Sulfacet-R Unknown Drug Allergy Active penicillamine Penicillamine Unknown Drug Allergy Active Reason For Referral No Information Medications Medication SIG (Take, Route, Frequency, Duration) Notes Start Date End Date Status Advair Diskus 250-50 MCG/DOSE 1 puff Inh alation Twice a day Active hydroCHLOROthiazide 25 MG 1 tablet Orall y Once a day Active Glucosamine 750 MG Orally A ctive ZyrTEC Allergy 10 MG 1 tablet as needed Orally Once a day Active PriLOSEC 10 MG 2 capsules Orally Once a day Active ProAir HFA 108 (90 Base) MCG/ACT 2 puffs as needed Inhalation every 4 hrs Active Colyte with Flavor Packs 240 GM As direc teresita Orally Over the specified time. for 1 day(s) 10/18/2014 Active Multivitamins Orally Active Fish Oil 1000 MG 1 capsule Orally Onc e a day Active Problems Problem Type SNOMED Code ICD Code Onset Dates Problem Status W/U Status Risk Notes Problem [id number] Encounter for long-term (current) use of other medications (V58.69) Active confirmed Problem [id number] Colon cancer screening (V76.51) Active confirmed Plan Of Treatment Future Test Test Name Order Date COLONOSCOPY 10/18/2014 Insurance Providers Payer Name Payer Address Payer Phone Subscriber Number Group Number Insured Name Patient Relationship to Insured Coverage Start Date Coverage End Date MEDICARE OF [place] [address] [place] [address] [id number] BLAYNE JONES Self - patient is the insured [employer] CLAIMS [address] [place] [address] [phone] [id number] BLAYNE JONES Self - patient is the insured Medical (General) History Medical History History ICD Code colonoscopy 03-13-2004 copd edema plantar fascititis Denies NC,DM,CVA,renal disease esophageal reflux degenerative joint disease allergies hypertension Surgical History Surgery Date(Month/Year) cholecystectomy benign breast tumor
--- OUTSIDE RECORDS SUMMARY | 2025-06-28 12:20 | XMS_ITS | Patient Health Record ---
[facility] Address [address] [place] [address] Care Team Providers Care Book Agent Name Role Phone Milli Colin MD Primary Care Provider Unavaila Charles Marinelli Unavailable [phone] Allergies Allergen (clinical drug ingredient) Drug/Non Drug Allergy documented on EMR Reaction Allergy Type Onset Date Status amoxicillin Amoxicillin Unknown Drug Allergy Act marcela sulfamethoxazole / trimethoprim Bactrim Unknown Drug Allergy Active Results Component Value Reference Range Notes HEMOGLOBIN A1C (GLYCOHEMOGLO BIN) Reviewed date:05/05/2025 12:10:34 PM Interpretation: Performing Lab: Notes/Report: HEMOGLOBIN A1C % (HH) 5.5 Reason For Referral No Information Medications Medication SIG (Take, Route, Frequency, Duration) Notes Start Date End Date Status PriLOSEC 10 MG 1 packet Orally Once a day; Duration: 30 day(s) Active Extra Depth Orthopedic Shoes, (1) Pair With (3) Pair Custom Heat Molded Multidensity Innersoles Dx: NIDDM/PVD(E11.51), Hammertoe Foot Deformity(M20.41,M20.42), Preulcerative Skin Lesion(s)(L85.1) Wear Daily; Duration: 365 days Active metFORMIN HCl Active Trelegy Ellipta 100-62.5-25 MCG/INH 1 puff Inhalation Once a day Active Centrum Silver Activ e Aleve Active Glucosamine 500 MG 1 capsule with a susy l Orally Three times a day; Duration: 30 day(s) Active Fiber Active Ventolin HFA 108 (90 Base) MCG/ACT 2 puffs as needed Inhalation every 6 hrs Active Triamterene-HCTZ 37.5-25 MG 1 tablet in the morning Orally Once a day; Duration: 30 day(s) Active Ammonium Lactate 12 % 1 application Exte rnally Twice a day; Duration: 30 days Active ZyrTEC Active Immunizations Vaccine Route Administration Date Status Comme nts Influenza Unknown 08/16/2024 Administered Social History Tobacco Use: Social History Observation Description Date Details (start date - stop date) Never Smoker NA - NA Tobacco use other than smoking: Question Answer Notes Are you an other tobacco user? No Tobacco Control (Standard) Question Answer Notes Tobacco use: Nonsmoker Additional Findings: Tobacco non-user Current no nsmoker AUDIT-C (Standard) Question Answer Notes Did you have a drink containing alcohol in the p ast year? No Points 0 Interpretation Negative Problems Problem Type SNOMED Code ICD Code Onset Dates Problem Status W/U Status Risk Notes Problem Acquired hammer toe of right foot (5075724957139 105) Other hammer toe(s) (acquired), right foot (M20.41) Active confirmed Response to treatment,I mprovement Problem Type 2 diabetes mellitus with peripheral angiopathy (077122955) Type 2 diabetes mellitus with diabetic peripheral angiopathy without gangrene (E11.51) Active confirmed Problem Acquired hammer toe of left foot (4357426400113 103) Other hammer toe(s) (acquired), left foot (M20.42) Active confirmed Response to treatment,I mprovement Vital Signs Blood pressure diastolic 65 mm Hg 05/05/2025 Height 5 ft 1 in in 05/05/2025 Blood pressure systolic 128 mm Hg 05/05/2025 Weight 186 lbs 05/05/2025 BMI 35.14 kg/m2 05/05/2025 Procedures Procedure Date Ordered Date Performed Result Body Sit e 39220-OFMHIGK NAIL, 6 OR MORE 05/05/2025 N/A 88724-PTBD SKIN LESIONS, OVER 4 05/05/2025 N/A Encounters Encounter Location Date Provider Diagnosis [facility] [place] [address] [place] [address] 05/05/2025 Charles Guerrier Type 2 diabetes mellitus with diabetic peripheral angiopathy without gangrene E11.51 ; Other hammer toe(s) (acquired), right foot M20.41 ; Tinea unguium B35.1 ; Pain in right toe(s) M79.674 ; Pain in left toe(s) M79.675 and Other hammer toe(s) (acquired), left foot M20.42 Assessments Encounter Date Diagnosis (ICD Code) Assessment Notes Treatment Notes Treatment Clinical Notes Section Notes 05/05/2025 Other hammer toe(s) (acquired), right foot (ICD-10 - M20.41) Patient Educated with: DIABETIC FOOT CARE INSTRUCTIONS.p df (DIABETIC FOOT CARE INSTRUCTIONS.p df) 05/05/2025 Type 2 diabetes mellitus with diabetic peripheral angiopathy without gangrene (ICD-10 - E11.51) 05/05/2025 Tinea unguium (ICD-10 - B35.1) 05/05/2025 Pain in right toe(s) (ICD-10 - M79.674) 05/05/2025 Pain in left toe(s) (ICD-10 - M79.675) 05/05/2025 Other hammer toe(s) (acquired), left foot (ICD-10 - M20.42) Plan Of Treatment Pending Test Test Name Order Date 78354-JBTKXNP NAIL, 6 OR MORE 04/25/2022 22430-NFTZMDG NAIL, 6 OR MORE 07/15/2022 93506-TDKRIXX NAIL, 6 OR MORE 09/26/2022 39055-ZGKHVAU NAIL, 6 OR MORE 05/01/2023 97377-DTFNTVJ NAIL, 6 OR MORE 10/06/2023 92286-TEFRKLQ NAIL, 6 OR MORE 05/24/2024 33573-ZMHZAVY NAIL, 6 OR MORE 05/05/2025 15721-REZF SKIN LESIONS, OVER 4 05/05/20 25 96813-FCJK SKIN LESIONS, OVER 4 05/24/20 24 09594-SZPR SKIN LESIONS, OVER 4 10/06/20 23 09923-MVUT SKIN LESIONS, OVER 4 05/01/20 23 84968-FYBL SKIN LESIONS, OVER 4 09/26/20 22 93099-LVDJ SKIN LESIONS, OVER 4 07/15/20 22 44408-HPVU SKIN LESIONS, OVER 4 04/25/20 22 Next Appt Details Provider Name:Charles Guerrier , 10/10/2025 01:30:00 PM, [address] [place], [address], Insurance Providers Payer Name Payer Address Payer Phone Subscriber Number Group Number Insured Name Patient Relationship to Insured Coverage Start Date Coverage End Date AARP Medicare Complete [address] [address] [place] [address] [phone] [id number] Stefania Schuster Self - patient is the [...]
== END 2025-06-28 12:13 | disposition home or self-care (01) ==
PROVIDERS: PCP Internal Medicine; Visit Provider Obstetrics & Gynecology
DX: R10.2 Pelvic and perineal pain (principal); R31.29 Other microscopic hematuria
CPT/HCPCS: 99213

== ENCOUNTER 2025-07-15 08:40 | Outpatient (REF) | payer MEDICARE, SELFPAY ==
--- OUTSIDE RECORDS SUMMARY | 2025-03-31 08:00 | XMS_ITS ---
Author Organization [facility] Address [address] [place] [address] Care Team Providers Care Jig And Fixture Repairer Name Role Phone Milli Colin MD Primary Care Provider Unavaila Charles Marinelli Unavailable [phone] Dela Cruz Encounters Encounter Location Date Provider Diagnosis [address] [address] 03/31/2025 Charles Guerrier Plan Of Treatment Next Appt Details Provider Name:Charles Guerrier , 10/10/2025 01:30:00 PM, [address] [place] [address], [address], Progress Notes * Stefania DILLON MDOB:[birth year] (75 yo F)Acc No.[id number]:03/31/2025 Progress Note Patient: Ruchi Stefania MCCLOUD Provider: Stella Guerrier DPM :1950 A ge:75 Y S ex:Female Date:03/31/2025 Address: [id number] Pcp:Milli Colin MD Subjective: * Chief Complaints: [...] 0 03/31/2025 Generated for Bev Salazar on: 07/15/2025 08:43 AM EDT
--- OUTSIDE RECORDS SUMMARY | 2025-07-15 08:43 | XMS_ITS | Patient Health Record ---
Author Organization [facility] Address [address] [place] [address] Care Team Providers Care Learning Technologist Name Role Phone Dahlia(inactive) Beka FOURNIER Primary [...] Problem Status W/U Status Risk Notes Problem [id number] Encounter for long-term (current) use of other medications (V58.69) Active confirmed Problem [id number] Colon cancer screening (V76.51) Active confirmed Plan Of Treatment Future Test Test Name Order Date COLONOSCOPY 10/18/2014 Insurance Providers Payer Name Payer Address Payer Phone Subscriber Number Group Number Insured Name Patient Relationship to Insured Coverage Start Date Coverage End Date MEDICARE OF [place] [address] [place] [id number] BLAYNE JONES Self - patient is the insured MEDEX ATTN CLAIMS [address] [place] [address] [phone] [id number] BLAYNE JONES Self - patient is the insured Medical (General) History Medical History History ICD Code colonoscopy 03-13-2004 copd edema plantar fascititis Denies SC,DM,CVA,renal disease esophageal reflux degenerative joint disease allergies hypertension Surgical History Surgery Date(Month/Year) cholecystectomy benign breast tumor
--- OUTSIDE RECORDS SUMMARY | 2025-07-15 08:43 | XMS_ITS | Patient Health Record ---
Author [facility] Address [address] [place] [address] Care Team Providers Care Electrical Subcontractor Name Role Phone Milli Colin MD Primary Care Provider Unavaila Charles Marinelli Unavailable [phone] Allergies Allergen (clinical drug ingredient) Drug/Non Drug [...] Problem Acquired hammer toe of right foot ([id number] 105) Other hammer toe(s) (acquired), right foot (M20.41) Active confirmed Response to treatment,I mprovement Problem Type 2 diabetes mellitus with peripheral angiopathy (409148704) Type 2 diabetes mellitus with diabetic peripheral angiopathy without gangrene (E11.51) Active confirmed Problem Other hammer toe(s) (acquired), left foot (M20.42) Active confirmed Response to treatment,I mprovement Vital Signs Blood pressure diastolic 65 mm Hg 05/05/2025 Height 5 ft 1 in in 05/05/2025 Blood pressure systolic 128 mm Hg 05/05/2025 Weight 186 lbs 05/05/2025 BMI 35.14 kg/m2 05/05/2025 Procedures Procedure Date Ordered Date Performed Result Body Sit e 50060-LKTKEVD NAIL, 6 OR MORE 05/05/2025 N/A 46166-PUSW SKIN LESIONS, OVER 4 05/05/2025 N/A Encounters Encounter Location Date Provider Diagnosis [facility] [place] [address] [place] [address] 05/05/2025 Charles Guerrier Type 2 diabetes mellitus [...] Treatment Pending Test Test Name Order Date 89508-SJRIGFS NAIL, 6 OR MORE 04/25/2022 03531-MOHEBSI NAIL, 6 OR MORE 07/15/2022 21284-EAKOCMA NAIL, 6 OR MORE 09/26/2022 33413-TLGHIAP NAIL, 6 OR MORE 05/01/2023 11517-AZUDYPF NAIL, 6 OR MORE 10/06/2023 45916-LJZMCRU NAIL, 6 OR MORE 05/24/2024 52507-YUJNGSV NAIL, 6 OR MORE 05/05/2025 26767-CHUH SKIN LESIONS, OVER 4 05/05/20 25 66369-EEKQ SKIN LESIONS, OVER 4 05/24/20 24 46465-NYIW SKIN LESIONS, OVER 4 10/06/20 23 74933-WAKW SKIN LESIONS, OVER 4 05/01/20 23 04517-PVXC SKIN LESIONS, OVER 4 09/26/20 22 27902-QXXA SKIN LESIONS, OVER 4 07/15/20 22 21191-MXGU SKIN LESIONS, OVER 4 04/25/20 22 Next Appt Details Provider Name:Charles Guerrier , 10/10/2025 01:30:00 PM, [address] [place] [address], [phone], Insurance Providers Payer Name Payer Address Payer Phone Subscriber Number Group Number Insured Name Patient Relationship to Insured Coverage Start Date Coverage End Date AARP Medicare Complete [address] [address] [place] [address] [id number] Stefania Schuster Self - patient is the [...]
[2025-07-15 11:03] LABS: MANUAL DIFF FLAG NO
[2025-07-15 11:11] LABS: Hematocrit 36.2 % (37.0-47.0); Hemoglobin 12.8 g/dl (12.0-16.0); Imm Gran Abs Auto 0.03 X10*3/uL (0.00-0.03); Imm Gran Pct Auto 0.3 % (0.0-0.4); Lymphocytes Absolute Auto 3.3 X10*3/uL (1.2-4.9); Mean Corpuscular HGB Conc 35.4 g/dl (31.0-35.0); Mean Corpuscular Hemoglobin 32.9 pg (27.0-33.0); Mean Corpuscular Volume 93.1 fL (80.0-98.0); NRBC Abs Auto 0.000 X10*3/uL (0.0-0.012); NRBC Pct Auto 0.0 /100WBC (0.0-0.2); Platelet Count 331 X10*3/uL (160-400); Red Blood Count 3.89 X10*6/uL (4.20-5.50); White Blood Count 9.4 X10*3/uL (4.8-10.8)
[2025-07-15 11:16] LABS: Hemoglobin A1C 151.8093 umol/L; Total Hemoglobin (HGBA1C) 3325.2998 umol/L
[2025-07-15 11:23] LABS: Alanine Aminotransferase 14 U/L (0-31); Albumin Level 4.0 g/dL (3.5-5.0); Alkaline Phosphatase 75 U/L (39-117); Anion Gap 17 (12-20); Aspartate Amino Transferase 26 U/L (5-31); Blood Urea Nitrogen 23 mg/dL (9-16); Calcium 9.7 mg/dL (8.4-10.2); Carbon Dioxide 23 mmol/L (22-29); Chloride 103 mmol/L (96-108); Cholesterol 164 mg/dL (<200); Estimated Glomerular Filt Rate 50; HDL Cholesterol 41 mg/dL (>40); Potassium 3.9 mmol/L (3.3-5.1); Sodium 139 mmol/L (135-145); Total Protein 6.9 g/dL (6.5-8.0); Triglycerides 150 mg/dL (<150)
[2025-07-15 11:34] LABS: Microalbum/Creatinine Ratio Ur 9.5 ug/mg cr (<30)
== END 2025-07-15 08:41 | disposition home or self-care (01) ==
LOC: HO.HMGCLDS 08:40
PROVIDERS: PCP Internal Medicine; Visit Provider Internal Medicine
DX: E11.9 Type 2 diabetes mellitus without complications (principal); J44.9 Chronic obstructive pulmonary disease, unspecified; E66.3 Overweight
CPT/HCPCS: 36415; 80053; 80061; 82043; 82570; 83036; 85025

== ENCOUNTER 2025-07-18 09:18 | Outpatient (AMB) | payer MEDICARE, SELFPAY ==
--- OUTSIDE RECORDS SUMMARY | 2025-03-31 08:00 | XMS_ITS ---
Author Organization [facility] Address [address] [place] [address] Care Team Providers Care Arson And Bomb Investigator Name Role Phone Milli Colin MD Primary Care Provider Unavaila Charles Marinelli Unavailable [phone] Dela Cruz Encounters Encounter Location Date Provider Diagnosis [address] [address] 03/31/2025 Charles Guerrier Plan Of Treatment Next Appt Details Provider Name:Charles Guerrier , 10/10/2025 01:30:00 PM, [address] [place] [address], [address], Progress Notes * Stefania DILLON MDOB:[birth year] (75 yo F)Acc No.[id number]:03/31/2025 Progress Note Patient: Ruchi Stefania MCCLOUD Provider: Stella Guerrier DPM :1950 A ge:75 Y S ex:Female Date:03/31/2025 Address: [id number] Pcp:Milli Colin MD Subjective: * Chief Complaints: [...] 03/31/2025 Generated for Bev Salazar on: 0 07/18/2025 10:12 AM EDT
--- NOTE | 2025-07-18 09:20 | MHC.PC.OV ---
Vital Signs 07/18/25 09:35 Height 5 ft 1 in Weight 172 lb BMI 32.5 BP 126/70 Blood Pressure Location Lt brachial Position Sitting Respiration 18 Pulse 78 Pulse Source Pulse Oximeter Temp 98.0 F Temp Source Oral Pulse Oximetry (%) 93 Oxygen Delivery Method Room Air Intake Visit Reasons: 3m follow up Intake Note: Pt is here today for a 3 months follow up visit. Allergies Penicillins Allergy (Unknown, Verified 07/18/25 09:38) pt does not know she was a child Sulfa (Sulfonamide Antibiotics) Allergy (Unknown, Verified 07/18/25 09:38) Unknown Medication List - Last Reconciled 07/18/25 by Milli Colin MD albuterol sulfate 90 mcg/actuation (Ventolin HFA) 2 puffs inhalation Q6H PRN ascorbic acid (vitamin C) 500 mg PO DAILY bisoprolol fumarate 5 mg PO DAILY blood sugar diagnostic (inDegree Ultra Blue Test Strip) As directed calcium carbonate (Calcium 600) 1,200 mg PO QDAY cetirizine (Zyrtec) 10 mg PO DAILY cholecalciferol (vitamin D3) 25 mcg PO DAILY ugnlgziivqb-vuaeqkypu-spshjxot 100-62.5-25 mcg (Trelegy Ellipta) 1 ea PO DAILY glucosamine HCl 1,500 mg PO DAILY lactobacillus combination no.4 (Senior Probiotic) PO lancets ([employer] Devicesuch Delica Lancets) As directed metformin 500 mg PO BID Mounjaro (tirzepatide) 5 mg (0.5 mL) subcut QWEEK NS multivitamin (Multiple Vitamins tablet) 1 tab PO DAILY omega 8-ljq-eon-fish oil 1,000 (120-180) mg (Fish Oil) 1 cap PO DAILY omeprazole magnesium (Prilosec OTC) 20 mg PO DAILY [oxygen concentrator with portability including oxygen supplies. 2 liters/min flow rate] sertraline 25 mg PO DAILY triamterene-hydrochlorothiazid 37.5-25 mg 1 tab PO DAILY Tobacco use date assessed: 07/18/25 Fall risk assessment: No Falls in past year Last assessed Fall Risk: 07/18/25 Dental Screening Dental Screen Date: 04/28/25 HPI 3m follow up HPI Details Patient presents for the follow-up on hypertension type 2 diabetes COPD. Patient was prescribed Macrobid for 5 days for microscopic hematuria but urine culture was negative. Patient has a follow-up with development specialist for history of uterine polyp and has pelvic ultrasound scheduled. She denies dysuria increased urinary frequency. Patient reports high blood glucose readings up to 250 fasting for the last week. She denies any change in her eating habits. Patient denies polyuria polydipsia. she has been compliant with Mounjaro and metformin [facility] Medical History (Updated 07/18/25 @ 11:10 by Milli Colin MD) HTN (hypertension) Annual physical exam Arthritis History of DVT (deep vein thrombosis) GERD (gastroesophageal reflux disease) Dependence on nocturnal oxygen therapy Postmenopausal bleeding Vaginal prolapse Increased urinary frequency Vitamin D deficiency MORRO (obstructive sleep apnea) Nocturnal hypoxemia Hypoxia Overweight Mammogram normal Colon cancer screening DM (diabetes mellitus) Osteoarthritis GERD (gastroesophageal reflux disease) COPD (chronic obstructive pulmonary disease) Surgical History Hx of cholecystectomy History of cataract H/O colonoscopy Family History Father ETOH abuse Cirrhosis Mother COPD (chronic obstructive pulmonary disease) Diabetes Brother Substance use disorder Social History Household Members: Spouse Housing: House Alcohol intake: current Alcohol intake frequency: holidays/special occasions only Patient Tobacco Use Status: Former Tobacco user Years Smoked: 30 e-Cigarette/Vaping Use: Never Used service: No Current occupational status: retired Sexual orientation: Straight/Heterosexual Gender identity: Female Cognitive needs: No Hearing needs: No Vision needs: Yes Female Reproductive History Menstrual Age of Menarche: 12 Questionnaire Thrive Questionnaire Date Thrive assessed: 07/18/25 I am a: Patient What is your living situation today?: I have a steady place to live Within the past 12 months, did the food you bought not last and you didn't have the money to get more?: Never true Within the past 12 months, did you worry whether your food would run out before you got money to buy more?: Never true Do you have trouble paying for medicines?: No Do you have trouble getting transportation to medical appointments?: No Do you have trouble paying your heating and electricity bill?: No Do you have trouble taking care of your child, family member or friend?: No Do you have trouble with day-to-day activities such as bathing, preparing meals, shopping, managing finances, etc.?: No Are you currently unemployed and looking for a job?: No Are you interested in more education?: I choose not to answer this question Please select the resources that you would like help with: None Currently or been in a relationship where the following occur: No concerns reported THRIVE Score: 0 CLARKE-7 AMB Questionnaire CLARKE-7 Date CLARKE - 7 assessed: 01/24/25 Source: Developed by Drs. Bradly Womack, Luz Shrestha, Bello Euceda and colleagues, with an educational elizabet from [employer]. Review of Systems Const All systems reviewed & are unremarkable except as noted in HPI and below Eyes Reports no additional complaints ENT Reports no additional complaints Card Reports no additional complaints Resp Reports no additional complaints GI Reports no additional complaints Reports no additional complaints Physical exam (Primary Care) Vital Signs: Last Vital Signs Temp 98.0 F 07/18/25 09:35 Pulse 78 07/18/25 09:35 Resp 18 07/18/25 09:35 BP 126/70 07/18/25 09:35 Pulse Ox 93 07/18/25 09:35 Oxygen Delivery Method Room Air 07/18/25 09:35 BMI result Body Mass Index 32.5 Tobacco/Smoking Status: Tobacco use Status Tobacco use date assessed 07/18/25 07/18/25 09:40 Patient Tobacco Use Status Former Tobacco user 07/18/25 09:20 e-Cigarette/Vaping Use Never Used 07/18/25 09:20 Thrive Assessment: Date of Thrive Assessment Date Thrive assessed 07/18/25 07/18/25 09:40 Currently or been in a relationship where the following occur: No concerns reported Const General: no acute distress HENMT Head: Yes normal to inspection Ears: hearing grossly normal bilaterally Mouth: Normal oral and palatal mucosa present Eyes General: appearance normal, both eyes and all related structures Neck Neck: Yes supple Resp Effort & Inspection: normal respiratory effort Auscultation: clear to auscultation bilaterally Cardio Rhythm: regular rhythm Heart sounds: S1 normal heart sound present and S2 normal heart sound present GI Inspection: Yes normal to inspection Palpation (GI): Soft to palpation Percussion: Yes normal to percussion Auscultation: normal bowel sounds Coding Level of Care Code Est Pt Level 4 (20623) Diagnoses DM (diabetes mellitus) E11.9 Vitamin D deficiency E55.9 COPD (chronic obstructive pulmonary disease) J44.9 HTN (hypertension) I10 Assessment & Plan Assessment & Plan (1) DM (diabetes mellitus): Comment: A1C 5.9 03/08 Code(s): E11.9 - Type 2 diabetes mellitus without complications Category: Medical Plan: A1c is 6.3, ADA diet increase exercise discussed with the patient she will continue metformin and Mounjaro and we will continue to monitor her fasting blood glucose. She will follow-up in 3 months (2) Vitamin D deficiency: Code(s): E55.9 - Vitamin D deficiency, unspecified Category: Medical Plan: Continue vitamin-D supplement (3) COPD (chronic obstructive pulmonary disease): Comment: Patient has chronic obstructive pulmonary disease, moderately severe. PFT on 02/27/2022 Clinically well controlled with the current regimen. Code(s): J44.9 - Chronic obstructive pulmonary disease, unspecified Category: Medical Plan: Continue Trelegy and supplemental O2 at night (4) HTN (hypertension): Code(s): I10 - Essential (primary) hypertension Category: Medical Plan: Continue current medications Orders: Orders Comprehensive [place]. Panel Fast 3 Months E11.9 - Type 2 diabetes mellitus without complications, E55.9 - Vitamin D deficiency, unspecified, J44.9 - Chronic obstructive pulmonary disease, unspecified Complete Blood Count Auto Diff 3 Months E11.9 - Type 2 diabetes mellitus without complications, E55.9 - Vitamin D deficiency, unspecified, J44.9 - Chronic obstructive pulmonary disease, unspecified Urine Cytology Today E11.9 - Type 2 diabetes mellitus without complications, E55.9 - Vitamin D deficiency, unspecified, J44.9 - Chronic obstructive pulmonary disease, unspecified Microalbumin, Random (w Creat) 3 Months E11.9 - Type 2 diabetes mellitus without complications, E55.9 - Vitamin D deficiency, unspecified, J44.9 - Chronic obstructive pulmonary disease, unspecified Lipid Panel 3 Months E11.9 - Type 2 diabetes mellitus without complications, E55.9 - Vitamin D deficiency, unspecified, J44.9 - Chronic obstructive pulmonary disease, unspecified Vitamin B12 and Folate 3 Months E11.9 - Type 2 diabetes mellitus without complications, E55.9 - Vitamin D deficiency, unspecified, J44.9 - Chronic obstructive pulmonary disease, unspecified Hemoglobin A1c 3 Months E11.9 - Type 2 diabetes mellitus without complications, E55.9 - Vitamin D deficiency, unspecified, J44.9 - Chronic obstructive pulmonary disease, unspecified IRON PROFILE 3 Months E11.9 - Type 2 diabetes mellitus without complications, E55.9 - Vitamin D deficiency, unspecified, J44.9 - Chronic obstructive pulmonary disease, unspecified
[2025-07-18 09:35] VITALS: BP 126/70; PULSE 78; RESP 18; TEMP 36.7; O2SAT 93; BMI 32.5
--- OUTSIDE RECORDS SUMMARY | 2025-07-18 10:12 | XMS_ITS | Patient Health Record ---
[facility] Address [address] [place] [address] Care Team Providers Care Pharmacologist Name Role Phone Milli Colin MD Primary Care Provider Unavaila Charles Marinelli Unavailable [phone] Allergies Allergen (clinical drug ingredient) Drug/Non Drug [...] Problem Acquired hammer toe of right foot (6232808794560 105) Other hammer toe(s) (acquired), right foot (M20.41) Active confirmed Response to treatment,I mprovement Problem Type 2 diabetes mellitus with peripheral angiopathy (044130025) Type 2 diabetes mellitus with diabetic peripheral angiopathy without gangrene (E11.51) Active confirmed Problem Acquired hammer toe of left foot (2764147132952 103) Other hammer toe(s) (acquired), left foot (M20.42) Active confirmed Response to treatment,I mprovement Vital Signs Blood pressure diastolic 65 mm Hg 05/05/2025 Height 5 ft 1 in in 05/05/2025 Blood pressure systolic 128 mm Hg 05/05/2025 Weight 186 lbs 05/05/2025 BMI 35.14 kg/m2 05/05/2025 Procedures Procedure Date Ordered Date Performed Result Body Sit e 33280-GSDOBNO NAIL, 6 OR MORE 05/05/2025 N/A 26243-XEGB SKIN LESIONS, OVER 4 05/05/2025 N/A Encounters Encounter Location Date Provider Diagnosis [facility] [place] [address] [place] [address] 05/05/2025 Charles Guerrier Type 2 diabetes mellitus [...] Treatment Pending Test Test Name Order Date 30536-DARLKAY NAIL, 6 OR MORE 04/25/2022 33685-ATMGOOO NAIL, 6 OR MORE 07/15/2022 77136-HEFULIQ NAIL, 6 OR MORE 09/26/2022 10433-WTKIKTT NAIL, 6 OR MORE 05/01/2023 23959-CGPTZRB NAIL, 6 OR MORE 10/06/2023 26603-WXSMJOZ NAIL, 6 OR MORE 05/24/2024 97842-FAMNIWT NAIL, 6 OR MORE 05/05/2025 69382-NEQF SKIN LESIONS, OVER 4 05/05/20 25 83018-SCFI SKIN LESIONS, OVER 4 05/24/20 24 01090-BQEX SKIN LESIONS, OVER 4 10/06/20 23 58189-UFXH SKIN LESIONS, OVER 4 05/01/20 23 47367-JKUR SKIN LESIONS, OVER 4 09/26/20 22 82204-JWXM SKIN LESIONS, OVER 4 07/15/20 22 87510-FCPO SKIN LESIONS, OVER 4 04/25/20 22 Next Appt Details Provider Name:Charles Guerrier , 10/10/2025 01:30:00 PM, [address] [place], [address], Insurance Providers Payer Name Payer Address Payer Phone Subscriber Number Group Number Insured Name Patient Relationship to Insured Coverage Start Date Coverage End Date AARP Medicare Complete [address] [address] [place] [address] [id number] Stefania Schuster Self - patient is the [...]
--- OUTSIDE RECORDS SUMMARY | 2025-07-18 10:12 | XMS_ITS | Patient Health Record ---
Author Organization [facility] Address [address] [place] [address] Care Team Providers Care Administrative Services Officer Name Role Phone Dahlia(inactive) Beka FOURNIER Primary [...] Problem Status W/U Status Risk Notes Problem 218768356 Encounter for long-term (current) use of other medications (V58.69) Active confirmed Problem 672086830 Colon cancer screening (V76.51) Active confirmed Plan Of Treatment Future Test Test Name Order Date COLONOSCOPY 10/18/2014 Insurance Providers Payer Name Payer Address Payer Phone Subscriber Number Group Number Insured Name Patient Relationship to Insured Coverage Start Date Coverage End Date [place]ARE OF [place] [address] [place] [id number] BLAYNE JONES Self - patient is the insured MED[employer] ATTN CLAIMS [address] [place] [address] [id number] BLAYNE JONES Self - patient is the insured Medical (General) History Medical History History ICD Code colonoscopy 03-13-2004 copd edema plantar fascititis Denies [place],DM,CVA,renal disease esophageal reflux degenerative joint disease allergies hypertension Surgical History Surgery Date(Month/Year) cholecystectomy benign breast tumor
== END 2025-07-18 10:07 | disposition home or self-care (01) ==
LOC: HO.HMCC 09:19
PROVIDERS: PCP Internal Medicine; Visit Provider Internal Medicine
DX: E11.9 Type 2 diabetes mellitus without complications (principal); E55.9 Vitamin D deficiency, unspecified; J44.9 Chronic obstructive pulmonary disease, unspecified; I10 Essential (primary) hypertension

== ENCOUNTER → 2025-07-18 09:18 | Outpatient (BNVA) | payer MEDICARE, SELFPAY | PROVIDERS: PCP Internal Medicine; Visit Provider Internal Medicine | DX: I10 Essential (primary) hypertension (principal); E11.9 Type 2 diabetes mellitus without complications; J44.9 Chronic obstructive pulmonary disease, unspecified; E55.9 Vitamin D deficiency, unspecified; Z79.899 Other long term (current) drug therapy | CPT/HCPCS: 99212 ==

== ENCOUNTER 2025-07-19 07:45 | Outpatient (REF) | payer MEDICARE, SELFPAY ==
--- OUTSIDE RECORDS SUMMARY | 2025-03-31 08:00 | XMS_ITS ---
Author Organization [facility] Address [address] [place] [address] Care Team Providers Care Solar Site Assessment Specialist Name Role Phone Milli Colin MD Primary Care Provider Unavaila Charles Marinelli Unavailable [phone] Dela Cruz Encounters Encounter Location Date Provider Diagnosis [address] [address] 03/31/2025 Charles Guerrier Plan Of Treatment Next Appt Details Provider Name:Charles Guerrier , 10/10/2025 01:30:00 PM, [address] [place] [address], [address], Progress Notes * Stefania DILLON MDOB:[birth year] (75 yo F)Acc No.[id number]:03/31/2025 Progress Note Patient: Ruchi Stefania MCCLOUD Provider: Stella Guerrier DPM :1950 A ge:75 Y S ex:Female Date:03/31/2025 Address: [id number] Pcp:Milli Colin MD Subjective: * Chief Complaints: [...] 0 03/31/2025 Generated for Bev Salazar on: 0 07/19/2025 10:53 AM EDT
--- OUTSIDE RECORDS SUMMARY | 2025-07-19 10:53 | XMS_ITS | Patient Health Record ---
Author Organization [facility] Address [address] [facility] [place] [address] Care Team Providers Care Physician Coding Specialist Name Role Phone Milli Colin MD Primary Care Provider Unavaila Charles Marinelli Unavailable [phone] Allergies Allergen (clinical drug ingredient) Drug/Non Drug [...] Problem Acquired hammer toe of right foot ([id number] 105) Other hammer toe(s) (acquired), right foot (M20.41) Active confirmed Response to treatment,I mprovement Problem Type 2 diabetes mellitus with peripheral angiopathy (564186725) Type 2 diabetes mellitus with diabetic peripheral angiopathy without gangrene (E11.51) Active confirmed Problem Acquired hammer toe of left foot ([id number] 103) Other hammer toe(s) (acquired), left foot (M20.42) Active confirmed Response to treatment,I mprovement Vital Signs Blood pressure diastolic 65 mm Hg 05/05/2025 Height 5 ft 1 in in 05/05/2025 Blood pressure systolic 128 mm Hg 05/05/2025 Weight 186 lbs 05/05/2025 BMI 35.14 kg/m2 05/05/2025 Procedures Procedure Date Ordered Date Performed Result Body Sit e 56292-IPYVAKS NAIL, 6 OR MORE 05/05/2025 N/A 90873-WDKX SKIN LESIONS, OVER 4 05/05/2025 N/A Encounters Encounter Location Date Provider Diagnosis [facility] [place] [address] [place] [address] 05/05/2025 Charles Guerrier Type 2 diabetes mellitus [...] Treatment Pending Test Test Name Order Date 90855-UNUBJLW NAIL, 6 OR MORE 04/25/2022 88693-LHNUJGV NAIL, 6 OR MORE 07/15/2022 95924-SMUWUBW NAIL, 6 OR MORE 09/26/2022 91582-HCUXWXC NAIL, 6 OR MORE 05/01/2023 26382-QEYBMGY NAIL, 6 OR MORE 10/06/2023 11185-SDWKSRZ NAIL, 6 OR MORE 05/24/2024 10211-BNDDWZC NAIL, 6 OR MORE 05/05/2025 12476-DIZN SKIN LESIONS, OVER 4 05/05/20 25 26011-YBEN SKIN LESIONS, OVER 4 05/24/20 24 16891-HKGP SKIN LESIONS, OVER 4 10/06/20 23 14639-LIAK SKIN LESIONS, OVER 4 05/01/20 23 07706-YBVM SKIN LESIONS, OVER 4 09/26/20 22 47580-CWRC SKIN LESIONS, OVER 4 07/15/20 22 67175-ZMAJ SKIN LESIONS, OVER 4 04/25/20 22 Next Appt Details Provider Name:Charles Guerrier , 10/10/2025 01:30:00 PM, [address] [place], [address], Insurance Providers Payer Name Payer Address Payer Phone Subscriber Number Group Number Insured Name Patient Relationship to Insured Coverage Start Date Coverage End Date AARP Medicare Complete [address] [address] [place] [address] [id number] Stefania Schuster Self - patient is the [...]
--- OUTSIDE RECORDS SUMMARY | 2025-07-19 10:53 | XMS_ITS | Patient Health Record ---
Author Organization [facility] Address [address] [place] [address] Care Team Providers Care Tube Teller Name Role Phone Dahlia(inactive) Beka FOURNIER Primary [...] Problem Status W/U Status Risk Notes Problem [id number] Encounter for long-term (current) use of other medications (V58.69) Active confirmed Problem 768351309 Colon cancer screening (V76.51) Active confirmed Plan Of Treatment Future Test Test Name Order Date COLONOSCOPY 10/18/2014 Insurance Providers Payer Name Payer Address Payer Phone Subscriber Number Group Number Insured Name Patient Relationship to Insured Coverage Start Date Coverage End Date MEDICARE OF [place] [address] [place] [address] [id number] BLAYNE JONES Self - patient is the insured MEDEX ATTN CLAIMS [address] [place] [address] [id number] BLAYNE JONES Self - patient is the insured Medical (General) History Medical History History ICD Code colonoscopy 03-13-2004 copd edema plantar fascititis Denies [place],DM,CVA,renal disease esophageal reflux degenerative joint disease allergies hypertension Surgical History Surgery Date(Month/Year) cholecystectomy benign breast tumor
== END 2025-07-19 07:46 | disposition home or self-care (01) ==
LOC: HO.HMGCLNP 07:45
PROVIDERS: PCP Internal Medicine; Visit Provider Internal Medicine
DX: E11.9 Type 2 diabetes mellitus without complications (principal); E55.9 Vitamin D deficiency, unspecified; J44.9 Chronic obstructive pulmonary disease, unspecified
CPT/HCPCS: 88112

== ENCOUNTER 2025-08-18 11:23 | Outpatient (REF) | payer MEDICARE, SELFPAY ==
--- OUTSIDE RECORDS SUMMARY | 2025-03-31 08:00 | XMS_ITS ---
Author Organization [facility] Address [address] [place] [address] Care Team Providers Care Vb Net Developer Name Role Phone Milli Colin MD Primary Care Provider Unavaila Charles Marinelli Unavailable [phone] Dela Cruz Encounters Encounter Location Date Provider Diagnosis [address] [address] 03/31/2025 Charles Guerrier Plan Of Treatment Next Appt Details Provider Name:Charles Guerrier , 10/10/2025 01:30:00 PM, [address] [place] [address], [address], Progress Notes * Stefania DILLON MDOB:[birth year] (75 yo F)Acc No.[id number]:03/31/2025 Progress Note Patient: Ruchi Stefania MCCLOUD Provider: Stella Guerrier DPM :1950 A ge:75 Y S ex:Female Date:03/31/2025 Address: [id number] Pcp:Milli Colin MD Subjective: * Chief Complaints: [...] 0 03/31/2025 Generated for Bev Salazar on: 12:31 PM EDT
--- NOTE | ~2025-08-18 | US_ITS ---
CLINICAL HISTORY: R10.2 - Pelvic and perineal pain US pelvis transabdominal and transvaginal Comparison: None provided Findings: Transabdominal scanning performed for overall anatomy. Transvaginal scanning performed for additional detail. Anteverted uterus is 4.5 cm length. Normal myometrium. Endometrium 2.0 mm thickness. Right ovary notvisualized. Left ovary notvisualized. No free fluid. IMPRESSION: 1. Normal pelvic ultrasound This document has been electronically signed by: Andre Giraldo MD on 08/19/2025 09:10:31
--- OUTSIDE RECORDS SUMMARY | 2025-08-18 12:31 | XMS_ITS | Patient Health Record ---
Author Organization [facility] Address [address] [place] [address] Care Team Providers Care Dispatcher Motor Vehicle Name Role Phone Milli Colin MD Primary Care Provider Unavaila Charles Marinelli Unavailable [phone] Allergies Allergen (clinical drug ingredient) Drug/Non Drug [...] Problem Acquired hammer toe of right foot (5060286902791 105) Other hammer toe(s) (acquired), right foot (M20.41) Active confirmed Response to treatment,I mprovement Problem Type 2 diabetes mellitus with peripheral angiopathy (914143278) Type 2 diabetes mellitus with diabetic peripheral angiopathy without gangrene (E11.51) Active confirmed Problem Acquired hammer toe of left foot (7646355490427 103) Other hammer toe(s) (acquired), left foot (M20.42) Active confirmed Response to treatment,I mprovement Vital Signs Blood pressure diastolic 65 mm Hg 05/05/2025 Height 5 ft 1 in in 05/05/2025 Blood pressure systolic 128 mm Hg 05/05/2025 Weight 186 lbs 05/05/2025 BMI 35.14 kg/m2 05/05/2025 Procedures Procedure Date Ordered Date Performed Result Body Sit e 91596-IEUXKDC NAIL, 6 OR MORE 05/05/2025 N/A 71078-NNMA SKIN LESIONS, OVER 4 05/05/2025 N/A Encounters Encounter Location Date Provider Diagnosis [facility] [place] [address] [place] [address] 05/05/2025 Charles Guerrier Type 2 diabetes mellitus [...] Treatment Pending Test Test Name Order Date 76437-WOYRORH NAIL, 6 OR MORE 04/25/2022 67622-PTKUBPZ NAIL, 6 OR MORE 07/15/2022 69341-SUBMZNG NAIL, 6 OR MORE 09/26/2022 45633-AXUDLMA NAIL, 6 OR MORE 05/01/2023 39882-UHEXEKM NAIL, 6 OR MORE 10/06/2023 69947-FMZHCRV NAIL, 6 OR MORE 05/24/2024 26298-OQTZFPC NAIL, 6 OR MORE 05/05/2025 16622-XNFV SKIN LESIONS, OVER 4 05/05/20 25 62762-TBSI SKIN LESIONS, OVER 4 05/24/20 24 07193-HEOO SKIN LESIONS, OVER 4 10/06/20 23 72854-GHBD SKIN LESIONS, OVER 4 05/01/20 23 41172-YJBR SKIN LESIONS, OVER 4 09/26/20 22 64305-QRKB SKIN LESIONS, OVER 4 07/15/20 22 92427-DCNE SKIN LESIONS, OVER 4 04/25/20 22 Next Appt Details Provider Name:Charles Guerrier , 10/10/2025 01:30:00 PM, [address] [place], [address], Insurance Providers Payer Name Payer Address Payer Phone Subscriber Number Group Number Insured Name Patient Relationship to Insured Coverage Start Date Coverage End Date AARP Medicare Complete [address] [address] [place] [address] [phone] [id number] Stefania Schuster Self - patient is the [...]
--- OUTSIDE RECORDS SUMMARY | 2025-08-18 12:31 | XMS_ITS | Patient Health Record ---
Author Organization [facility] Address [address] [place] [address] Care Team Providers Care Silica Spray Mixer Name Role Phone Dahlia(inactive) Beka FOURNIER Primary [...] Problem Status W/U Status Risk Notes Problem [id number] Encounter for long-term (current) use of other medications (V58.69) Active confirmed Problem 579504599 Colon cancer screening (V76.51) Active confirmed Plan Of Treatment Future Test Test Name Order Date COLONOSCOPY 10/18/2014 Insurance Providers Payer Name Payer Address Payer Phone Subscriber Number Group Number Insured Name Patient Relationship to Insured Coverage Start Date Coverage End Date [place]ARE OF [place] [address] [place] [address] [phone] [id number] BLAYNE JONES Self - patient is the insured MEDEX ATTN CLAIMS [address] [place] [address] [id number] BLAYNE JONES Self - patient is the insured Medical (General) History Medical History History ICD Code colonoscopy 03-13-2004 copd edema plantar fascititis Denies [place],DM,CVA,renal disease esophageal reflux degenerative joint disease allergies hypertension Surgical History Surgery Date(Month/Year) cholecystectomy benign breast tumor
== END 2025-08-18 11:24 | disposition home or self-care (01) ==
LOC: HO.US 11:23
PROVIDERS: PCP Internal Medicine; Visit Provider Obstetrics & Gynecology
DX: R10.20 Pelvic and perineal pain unspecified side (principal)
CPT/HCPCS: 76830; 76856

== ENCOUNTER → 2025-08-18 11:25 | Outpatient (BNV) | payer MEDICARE, SELFPAY | PROVIDERS: PCP Internal Medicine; Visit Provider Specialist | DX: R10.20 Pelvic and perineal pain unspecified side (principal) | CPT/HCPCS: 76830; 76856 ==

== ENCOUNTER 2025-08-29 10:45 | Outpatient (AMB) | payer MEDICARE, SELFPAY ==
--- OUTSIDE RECORDS SUMMARY | 2025-03-31 08:00 | XMS_ITS ---
Author Organization [facility] Address [address] [place] [address] Care Team Providers Care School Operations Manager Name Role Phone Milli Colin MD Primary Care Provider Unavaila Charles Marinelli Unavailable [phone] Dela Cruz Encounters Encounter Location Date Provider Diagnosis [address] [address] 03/31/2025 Charles Guerrier Plan Of Treatment Next Appt Details Provider Name:Charles Guerrier , 10/20/2025 12:45:00 PM, [address] [place] [address], [phone], Progress Notes * Stefania DILLON MDOB:[birth year] (75 yo F)Acc No.[id number]:03/31/2025 Progress Note Patient: Ruchi Stefania MCCLOUD Provider: Stella Guerrier DPM :1950 A ge:75 Y S ex:Female Date:03/31/2025 Address: [id number] Pcp:Milli Colin MD Subjective: * Chief Complaints: [...] 0 03/31/2025 Generated for Bev Salazar on: 1 12:45 PM EDT
[2025-08-29 10:50] VITALS: BP 108/70; PULSE 80; O2SAT 97; BMI 32.3
--- NOTE | 2025-08-29 10:50 | A.OFFVIS_ITS ---
Vital Signs 08/29/25 10:50 Height 5 ft 1 in Weight 170 lb 13.732 oz BMI 32.3 BP 108/70 Blood Pressure Location Lt brachial Position Sitting Pulse 80 Pulse Source Pulse Oximeter Pulse Oximetry (%) 97 Oxygen Delivery Method Room Air Intake Visit Reasons: COPD Intake Note: pt is here for follow up and states she is feeling better, using oxygen on 2 to 2.5 liters at night. walking is with 2 liters prn usage. Agricultural Purchasing Agent Required: No Payroll Coordinator: Payroll Coordinator offered & declined Allergies Penicillins Allergy (Unknown, Verified 08/29/25 11:05) pt does not know she was a child Sulfa (Sulfonamide Antibiotics) Allergy (Unknown, Verified 08/29/25 11:05) Unknown Medication List - Last Reconciled 08/29/25 by Rosemary Masterson MD albuterol sulfate 90 mcg/actuation (Ventolin HFA) 2 puffs inhalation Q6H PRN ascorbic acid (vitamin C) 500 mg PO DAILY bisoprolol fumarate 5 mg PO DAILY blood sugar diagnostic (CancerIQuch Ultra Blue Test Strip) As directed calcium carbonate (Calcium 600) 1,200 mg PO QDAY cetirizine (Zyrtec) 10 mg PO DAILY cholecalciferol (vitamin D3) 25 mcg PO DAILY khuekmdsyjr-qhhfkmqhe-oritsnnv 100-62.5-25 mcg (Trelegy Ellipta) 1 ea PO DAILY glucosamine HCl 1,500 mg PO DAILY lactobacillus combination no.4 (Senior Probiotic) PO lancets (YouHelpTouch Delica Lancets) As directed metformin 500 mg PO BID Mounjaro (tirzepatide) 5 mg (0.5 mL) subcut QWEEK NS multivitamin (Multiple Vitamins tablet) 1 tab PO DAILY omega 6-daj-oun-fish oil 1,000 (120-180) mg (Fish Oil) 1 cap PO DAILY omeprazole magnesium (Prilosec OTC) 20 mg PO DAILY [oxygen concentrator with portability including oxygen supplies. 2 liters/min flow rate] sertraline 25 mg PO DAILY triamterene-hydrochlorothiazid 37.5-25 mg 1 tab PO DAILY Do you need a note to return to daycare/school/sports/work: No HPI HPI COPD: Details: BLAYNE, 75 YEARS OLD VERY PLEASANT FEMALE, A CASE OF MILD OBSTRUCTIVE SLEEP APNEA/NOCTURNAL HYPOXEMIA AND CHRONIC OBSTRUCTIVE PULMONARY DISEASE, COMES AFTER 6 MONTHS. FOR ROUTINE FOLLOW-UP SHE HAS HAD NO SIGNIFICANT CHANGE IN THE CONDITION EXCEPT THAT SHE DOES NOT FEEL NEED TO USE OXYGEN DURING THE DAYTIME, AND CAN GO OUT FOR SHORT TRIPS SUCH BUYING GROCERIES WITHOUT OXYGEN. SHE STILL USES OXYGEN 2 L/MINUTE AT NIGHT, TO OVERCOME HER NOCTURNAL HYPOXEMIA. STILL LOSING WEIGHT GRADUALLY AND HAS LOST ABOUT 20+ LB SINCE SHE HAS BEEN ON TIRZEPATIDE( MOUNJARO ) INJECTIONS. FOR COPD SHE HAS BEEN ON TRELEGY ELLIPTA 1 INHALATION DAILY AND HARDLY NEEDS TO USE THE RESCUE INHALER. [facility] Medical History (Updated 08/29/25 @ 11:11 by Rosemary Masterson MD) HTN (hypertension) Annual physical exam Arthritis History of DVT (deep vein thrombosis) GERD (gastroesophageal reflux disease) Dependence on nocturnal oxygen therapy Postmenopausal bleeding Vaginal prolapse Increased urinary frequency Vitamin D deficiency MORRO (obstructive sleep apnea) Nocturnal hypoxemia Hypoxia Overweight Mammogram normal Colon cancer screening DM (diabetes mellitus) Osteoarthritis GERD (gastroesophageal reflux disease) COPD (chronic obstructive pulmonary disease) Surgical History Hx of cholecystectomy History of cataract H/O colonoscopy Family History Father ETOH abuse Cirrhosis Mother COPD (chronic obstructive pulmonary disease) Diabetes Brother Substance use disorder Social History Household Members: Spouse Housing: House Alcohol intake: current Alcohol intake frequency: holidays/special occasions only Patient Tobacco Use Status: Former Tobacco user Years Smoked: 30 e-Cigarette/Vaping Use: Never Used service: No Current occupational status: retired Sexual orientation: Straight/Heterosexual Gender identity: Female Cognitive needs: No Hearing needs: No Vision needs: Yes Female Reproductive History Menstrual Age of Menarche: 12 Review of Systems Const All systems reviewed & are unremarkable except as noted in HPI and below Eyes Reports no additional complaints ENT Reports nasal congestion (Mild intermittent) Card Denies chest pain, Denies irregular heart rhythm and Reports leg edema (Only mild dependent edema when she is on her feet) Resp Reports as per HPI GI Reports no additional complaints Reports no additional complaints Musc Reports no additional complaints Skin/Breast Reports system reviewed and no additional complaints, except as documented Neuro Reports no additional complaints Psych Reports no additional complaints Physical Exam Const General: healthy appearing (EXCEPT FOR BEING OVERWEIGHT), comfortable, no acute distress, alert and awake Orientation/consciousness: patient oriented x3 HEENT Head: Yes normal to inspection General nose exam: No nasal polyps present and No nasal discharge present Face and sinus: Yes sinuses nontender Mouth: oropharynx normal Throat: Yes posterior oropharynx normal Eyes General: appearance normal, both eyes and all related structures Neck Neck: Yes normal visual inspection, Yes no lymphadenopathy, Yes trachea midline and Yes no JVD Thyroid: Thyroid normal Chest Chest palpation & inspection: normal inspection of the chest, normal palpation of entire chest wall and no tenderness Resp Other: PERCUSSION NOTE RESONANT, BREATH SOUNDS SLIGHTLY DECREASED OVER THE BASILAR AREAS. LUNGS ARE CLEAR .NO WHEEZES RHONCHI OR CREPITATIONS ARE HEARD. Cardio Palpation: normal PMI Rate: regular rate Rhythm: regular rhythm Heart sounds: no gallops and no murmurs GI Palpation (GI): Soft to palpation, nontender, No hepatosplenomegaly present and no masses Auscultation: normal bowel sounds Back/Spine/Pelvis Thoracic/Lumbar Spine: thoracic and lumbar spine normal to inspection Skin General skin exam: no rashes or lesions noted Neuro General: patient oriented x3 and no focal motor deficits Cranial nerves: Yes CN's II-XII intact bilaterally Extrem General: Yes normal to inspection, Yes no clubbing, cyanosis or edema and Yes no calf tenderness Psych Appearance: grossly normal and well kempt Speech and movement: Normal speech and movement present Assessment & Plan Assessment & Plan (1) COPD (chronic obstructive pulmonary disease): Comment: Patient has chronic obstructive pulmonary disease, moderately severe. PFT on 02/27/2022 Clinically well controlled with the current regimen. She can walk outdoors, a few blocks without getting short of breath. She has not use the rescue inhaler for a while. Code(s): J44.9 - Chronic obstructive pulmonary disease, unspecified Category: Medical Plan: Continue to use Trelegy Ellipta 1 inhalation daily. Keep albuterol HFA on hand emergency use if needed. (2) Hypoxia: Comment: SHE HAS NOCTURNAL HYPOXEMIA PART OF HER MILD MORRO AND COPD, WELL TREATED WITH USE OF O2 2 L/MINUTE SHE ALSO HAS EXERCISE INDUCED HYPOXEMIA, WELL TREATED WITH PORTABLE O2 2.5 L/MT , BUT THESE DAYS SHE IS NOT USING IT EXCEPT FOR HEAVY EXERTION. Code(s): R09.02 - Hypoxemia Category: Medical Plan: CONTINUE THE SAME (3) MORRO (obstructive sleep apnea): Comment: As per sleep study her sleep apnea was only mild, and more in supine position. Being treated with conservative measures and is doing well. Nocturnal hypoxemia being treated with oxygen supplementation. She is happy that she is losing weight . Code(s): G47.33 - Obstructive sleep apnea (adult) (pediatric) Category: Medical Plan: Continue to lose weight slowly. Try to sleep in lateral positision . (4) Nocturnal hypoxemia: Comment: Significant nocturnal hypoxemia was found on sleep study. Most likely due to her COPD and sleep apnea. Patient being treated with oxygen 2 L/minute at night and doing well. Code(s): G47.34 - Idiopathic sleep related nonobstructive alveolar hypoventilation Category: Medical Plan: Continue using O2 2 L/minute at night Coding Level of Care Code Est Pt Level 3 (98371) Diagnoses COPD (chronic obstructive pulmonary disease) J44.9 Hypoxia R09.02 MORRO (obstructive sleep apnea) G47.33 Nocturnal hypoxemia G47.34
--- OUTSIDE RECORDS SUMMARY | 2025-08-29 12:45 | XMS_ITS | Patient Health Record ---
Author Organization [facility] Address [address] [place] [address] Care Team Providers Care Blood Bank Attendant Name Role Phone Dahlia(inactive) Beka FOURNIER Primary [...] As direc teresita Orally Over the specified time.; Duration: 1 day(s) 10/18/2014 Active Multivitamins Orally Active Fish Oil 1000 MG 1 capsule Orally Onc e a day Active Problems Problem Type SNOMED Code ICD Code Onset Dates Problem Status W/U Status Risk Notes Problem Long-term current use of drug therapy (587703289) Encounter for long-term (current) use of other medications (V58.69) Active confirmed Problem Colon cancer screening (257790786) Colon cancer screening (V76.51) Active confirmed Plan Of Treatment Future Test Test Name Order Date COLONOSCOPY 10/18/2014 Insurance Providers Payer Name Payer Address Payer Phone Subscriber Number Group Number Insured Name Patient Relationship to Insured Coverage Start Date Coverage End Date [place]ARE OF [place] [address] [place] [address] [id number] BLAYNE JONES Self - patient is the insured MEDEX ATTN CLAIMS [address] [place] [address] [id number] BLAYNE JONES Self - patient is the insured Medical (General) History Medical History History ICD Code colonoscopy 03-13-2004 copd edema plantar fascititis Denies [place],DM,CVA,renal disease esophageal reflux degenerative joint disease allergies hypertension Surgical History Surgery Date(Month/Year) cholecystectomy benign breast tumor
--- OUTSIDE RECORDS SUMMARY | 2025-08-29 12:45 | XMS_ITS | Patient Health Record ---
Author Organization [facility] Address [address] [place] [address] Care Team Providers Care Environmental Technician Name Role Phone Milli Colin MD Primary Care Provider Unavaila Charles Marinelli Unavailable [phone] Allergies Allergen (clinical drug ingredient) Drug/Non Drug [...] Problem Acquired hammer toe of right foot (5491883480468 105) Other hammer toe(s) (acquired), right foot (M20.41) Active confirmed Response to treatment,I mprovement Problem Type 2 diabetes mellitus with peripheral angiopathy (292903271) Type 2 diabetes mellitus with diabetic peripheral angiopathy without gangrene (E11.51) Active confirmed Problem Acquired hammer toe of left foot (6300663399116 103) Other hammer toe(s) (acquired), left foot (M20.42) Active confirmed Response to treatment,I mprovement Vital Signs Blood pressure diastolic 65 mm Hg 05/05/2025 Height 5 ft 1 in in 05/05/2025 Blood pressure systolic 128 mm Hg 05/05/2025 Weight 186 lbs 05/05/2025 BMI 35.14 kg/m2 05/05/2025 Procedures Procedure Date Ordered Date Performed Result Body Sit e 42570-DYZKAGT NAIL, 6 OR MORE 05/05/2025 N/A 90798-UPSW SKIN LESIONS, OVER 4 05/05/2025 N/A Encounters Encounter Location Date Provider Diagnosis [facility] [place] [address] [place] [address] 05/05/2025 Charles Guerrier Type 2 diabetes mellitus [...] Treatment Pending Test Test Name Order Date 07738-YYMULUO NAIL, 6 OR MORE 04/25/2022 97105-SCAPKNS NAIL, 6 OR MORE 07/15/2022 45796-DHGGGWL NAIL, 6 OR MORE 09/26/2022 71965-CTVJXIH NAIL, 6 OR MORE 05/01/2023 98829-GHKHTJP NAIL, 6 OR MORE 10/06/2023 60728-EVFJFMI NAIL, 6 OR MORE 05/24/2024 50444-UGTIGOD NAIL, 6 OR MORE 05/05/2025 56983-MULR SKIN LESIONS, OVER 4 05/05/20 25 24103-KNWH SKIN LESIONS, OVER 4 05/24/20 24 95305-HJRY SKIN LESIONS, OVER 4 10/06/20 23 15579-DEIM SKIN LESIONS, OVER 4 05/01/20 23 40956-GDZQ SKIN LESIONS, OVER 4 09/26/20 22 76612-YPMR SKIN LESIONS, OVER 4 07/15/20 22 63226-BYFG SKIN LESIONS, OVER 4 04/25/20 22 Next Appt Details Provider Name:Charles Guerrier , 10/20/2025 12:45:00 PM, [address] [place], [address], Insurance Providers Payer Name Payer Address Payer Phone Subscriber Number Group Number Insured Name Patient Relationship to Insured Coverage Start Date Coverage End Date AARP Medicare Complete [address] [address] [place] [address] [id number] Stefania Schuster Self - patient is the [...]
== END 2025-08-29 11:07 | disposition home or self-care (01) ==
LOC: HO.HPS 10:45
PROVIDERS: PCP Internal Medicine; Visit Provider Internal Medicine
DX: J44.9 Chronic obstructive pulmonary disease, unspecified (principal); R09.02 Hypoxemia; G47.33 Obstructive sleep apnea (adult) (pediatric); G47.34 Idiopathic sleep related nonobstructive alveolar hypoventilation
CPT/HCPCS: 99213

== ENCOUNTER → 2025-08-29 10:45 | Outpatient (BNVA) | payer MEDICARE, SELFPAY | PROVIDERS: PCP Internal Medicine; Visit Provider Internal Medicine | DX: J44.9 Chronic obstructive pulmonary disease, unspecified (principal); R09.02 Hypoxemia; G47.33 Obstructive sleep apnea (adult) (pediatric); G47.34 Idiopathic sleep related nonobstructive alveolar hypoventilation; Z99.81 Dependence on supplemental oxygen; Z87.891 Personal history of nicotine dependence | CPT/HCPCS: 99212 ==

== ENCOUNTER 2025-09-27 12:11 | Outpatient (AMB) | payer MEDICARE, SELFPAY ==
--- OUTSIDE RECORDS SUMMARY | 2025-03-31 07:00 | XMS_ITS ---
Author Organization [facility] Address [address] [place] [address] Care Team Providers Care Machine Stitcher Name Role Phone Milli Cloin MD Primary Care Provider Unavaila Charles Marinelli Unavailable [phone] Dela Cruz Encounters Encounter Location Date Provider Diagnosis [address] [address] 03/31/2025 Charles Guerrier Plan Of Treatment Next Appt Details Provider Name:Charles Guerrier , 10/20/2025 12:45:00 PM, [address] [place] [address], [address], Progress Notes * Stefania DILLON MDOB:[birth year] (75 yo F)Acc No.[id number]:03/31/2025 Progress Note Patient: Ruchi Stefania MCCLOUD Provider: Stella Guerrier DPM :1950 A ge:75 Y S ex:Female Date:03/31/2025 Address: [id number] Pcp:Milli Colin MD Subjective: * Chief Complaints: [...] 0 03/31/2025 Generated for Bev Salazar on: 11/27/2024 02:59 PM EST
--- NOTE | 2025-09-27 12:15 | MHC.OFFVIS ---
Vital Signs 09/27/25 12:18 Height 5 ft 1 in Weight 163 lb BMI 30.8 BP 108/72 Blood Pressure Location Lt brachial Position Sitting Intake Visit Reasons: Annual/ultra sound follow up Intake Note: here for land acquisition manager annual Telegraphic Typewriter Repairer Required: No Information Interpreted: non-clinical & clinical Network Systems Integrator: Network Systems Integrator Present (Maria Elena) Accompanied by: Self / Same As Patient Allergies Penicillins Allergy (Unknown, Verified 09/27/25 12:16) pt does not know she was a child Sulfa (Sulfonamide Antibiotics) Allergy (Unknown, Verified 09/27/25 12:16) Unknown Medication List - Last Reconciled 09/27/25 by Laura Santiago, JUNO albuterol sulfate 90 mcg/actuation (Ventolin HFA) 2 puffs inhalation Q6H PRN ascorbic acid (vitamin C) 500 mg PO DAILY bisoprolol fumarate 5 mg PO DAILY blood sugar diagnostic (SandForce Ultra Blue Test Strip) As directed calcium carbonate (Calcium 600) 1,200 mg PO QDAY cetirizine (Zyrtec) 10 mg PO DAILY cholecalciferol (vitamin D3) 25 mcg PO DAILY scllvzyphpu-ncdgzybia-peuztpmt 100-62.5-25 mcg (Trelegy Ellipta) 1 ea PO DAILY glucosamine HCl 1,500 mg PO DAILY lactobacillus combination no.4 (Senior Probiotic) PO lancets (SandForce Delica Lancets) As directed metformin 500 mg PO BID Mounjaro (tirzepatide) 5 mg (0.5 mL) subcut QWEEK NS multivitamin (Multiple Vitamins tablet) 1 tab PO DAILY omega 4-jdd-wgn-fish oil 1,000 (120-180) mg (Fish Oil) 1 cap PO DAILY omeprazole magnesium (Prilosec OTC) 20 mg PO DAILY [oxygen concentrator with portability including oxygen supplies. 2 liters/min flow rate] sertraline 25 mg PO DAILY triamterene-hydrochlorothiazid 37.5-25 mg 1 tab PO DAILY Do you need a note to return to daycare/school/sports/work: No HPI Comments Details: Presenting for annual exam. No complaints. Last visit urine dip showed microscopic hematuria, urine culture was negative Last Pap/HPV was many years , no history of abnormal Pap smear last 25 years Last Mammogram was BI-RADS 1 in 02/07 Last DEXA scan was in 07/08 Last pelvic ultrasound done in 09/08/2025 showed the following: Transabdominal scanning performed for overall anatomy. Transvaginal scanning performed for additional detail. Anteverted uterus is 4.5 cm length. Normal myometrium. Endometrium 2.0 mm thickness. Right ovary notvisualized. Left ovary notvisualized. No free fluid. PFSH Medical History HTN (hypertension) Annual physical exam Arthritis History of DVT (deep vein thrombosis) GERD (gastroesophageal reflux disease) Dependence on nocturnal oxygen therapy Postmenopausal bleeding Vaginal prolapse Increased urinary frequency Vitamin D deficiency MORRO (obstructive sleep apnea) Nocturnal hypoxemia Hypoxia Overweight Mammogram normal Colon cancer screening DM (diabetes mellitus) Osteoarthritis GERD (gastroesophageal reflux disease) COPD (chronic obstructive pulmonary disease) Surgical History Hx of cholecystectomy History of cataract H/O colonoscopy Family History Father ETOH abuse Cirrhosis Mother COPD (chronic obstructive pulmonary disease) Diabetes Brother Substance use disorder Social History Household Members: Spouse Housing: House Alcohol intake: current Alcohol intake frequency: holidays/special occasions only Patient Tobacco Use Status: Former Tobacco user Years Smoked: 30 e-Cigarette/Vaping Use: Never Used service: No Current occupational status: retired Sexual orientation: Straight/Heterosexual Gender identity: Female Cognitive needs: No Hearing needs: No Vision needs: Yes Female Reproductive History Menstrual Age of Menarche: 12 Date of Mammogram: 02/03/25 History of abnormal mammogram: No Date of last Bone Density Screenin07/08/23 Review of Systems Const All systems reviewed & are unremarkable except as noted in HPI and below Card Reports as per HPI Resp Reports as per HPI GI Reports as per HPI and Reports no additional complaints Reports as per HPI Physical Exam Vital Signs: Last Vital Signs BP 108/72 09/27/25 12:18 BMI result Body Mass Index 30.8 Const General: cooperative, healthy appearing and comfortable Chest Chest palpation & inspection: normal inspection of the chest and normal palpation of entire chest wall Breast/axilla inspection: normal inspection of the breasts and normal inspection of the axillae Breast/axilla palpation: normal palpation of the breasts, normal palpation of the axillae and no axillary lymphadenopathy Resp Effort & Inspection: normal respiratory effort Auscultation: clear to auscultation bilaterally Percussion: percussion normal Cardio Palpation: normal PMI Rate: regular rate Rhythm: regular rhythm Heart sounds: no murmurs and no rubs Peripheral pulses: Peripheral pulses 2+ throughout GI Inspection: Yes normal to inspection Palpation (GI): Soft to palpation, nontender, no guarding, not rigid and No hepatosplenomegaly present Percussion: Yes normal to percussion Auscultation: normal bowel sounds Rectal Exam - Female: deferred General: Yes bladder normal to palpation External Female Exam: No lesion Speculum Exam - Vagina: normal appearance of the vagina, normal palpation, normal vaginal discharge and not erythematous Speculum Exam - Cervix: normal appearance of the cervix and normal palpation Bimanual exam- vagina & uterus: normal bimanual exam, normal palpation, uterine size normal, bladder normal to palpation, consistency normal and normal palpation Bimanual Exam- Adnexa, other: normal adnexae, no masses and no tenderness Assessment & Plan Assessment & Plan (1) Well woman exam: Code(s): Z01.419 - Encounter for gynecological examination (general) (routine) without abnormal findings Category: Medical Plan: Co testing not indicated since the patient 's age is above 65 with no history of abnormal Pap smears last 25 years, adequately screen for the last 10 years with no history of immunosuppression. Counseled the patient about the recommended dietary allowance of 1200 mg of Calcium & 800 IU of vitamin D. Mammogram schedule in 02/08 Will order DEXA scan . The patient was instructed to perform monthly self-breast exams and to schedule a 2 week DEXA scan follow-up appointment and an annual exam in a year; All questions answered and the patient verbalized understanding. (2) Microscopic hematuria: Code(s): R31.29 - Other microscopic hematuria Category: Medical Plan: Repeat urine dip showed no evidence for microscopic hematuria, the patient was reassured Orders: Orders XR DEXA axial skeleton Today Z78.0 - Asymptomatic menopausal state Coding Level of Care Code Est Pt Prev Care >65y(84698) Diagnoses Well woman exam Z01.419 Microscopic hematuria R31.29
[2025-09-27 12:18] VITALS: BP 108/72; BMI 30.8
--- OUTSIDE RECORDS SUMMARY | 2025-09-27 14:59 | XMS_ITS | Patient Health Record ---
Author Organization [facility] Address [address] [place] [address] Care Team Providers Care Finisher Special Stocks Name Role Phone Dahlia(inactive) Beka FOURNIER Primary Care Provider U Jarrett Lee Jr Unavailable [phone] Allergies Allergen (clinical drug ingredient) Drug/Non Drug [...] Problem Long-term current use of drug therapy (275539610) Encounter for long-term (current) use of other medications (V58.69) Active confirmed Problem Colon cancer screening (304128378) Colon cancer screening (V76.51) Active confirmed Plan Of Treatment Future Test Test Name Order Date COLONOSCOPY 10/18/2014 Insurance Providers Payer Name Payer Address Payer Phone Subscriber Number Group Number Insured Name Patient Relationship to Insured Coverage Start Date Coverage End Date MEDICARE OF [place] [address] [place] [id number] BLAYNE JONES Self - patient is the insured MEDEX ATTN CLAIMS [address] [place] [address] [id number] BLAYNE JONES Self - patient is the insured Medical (General) History Medical History History ICD Code colonoscopy 03-13-2004 copd edema plantar fascititis Denies [place],DM,CVA,renal disease esophageal reflux degenerative joint disease allergies hypertension Surgical History Surgery Date(Month/Year) cholecystectomy benign breast tumor
--- OUTSIDE RECORDS SUMMARY | 2025-09-27 14:59 | XMS_ITS | Patient Health Record ---
[facility] Address [address] [facility] [place] [address] Care Team Providers Care Installation Service Representative Name Role Phone Milli Colin MD Primary Care Provider Unavaila Charles Marinelli Unavailable [phone] Allergies Allergen (clinical drug ingredient) Drug/Non Drug [...] Problem Acquired hammer toe of right foot (5322310994714 105) Other hammer toe(s) (acquired), right foot (M20.41) Active confirmed Response to treatment,I mprovement Problem Type 2 diabetes mellitus with peripheral angiopathy (945375965) Type 2 diabetes mellitus with diabetic peripheral angiopathy without gangrene (E11.51) Active confirmed Problem Acquired hammer toe of left foot (5240645331352 103) Other hammer toe(s) (acquired), left foot (M20.42) Active confirmed Response to treatment,I mprovement Vital Signs Blood pressure diastolic 65 mm Hg 05/05/2025 Height 5 ft 1 in in 05/05/2025 Blood pressure systolic 128 mm Hg 05/05/2025 Weight 186 lbs 05/05/2025 BMI 35.14 kg/m2 05/05/2025 Procedures Procedure Date Ordered Date Performed Result Body Sit e 94079-CAADJSN NAIL, 6 OR MORE 05/05/2025 N/A 41797-KGWH SKIN LESIONS, OVER 4 05/05/2025 N/A Encounters Encounter Location Date Provider Diagnosis [facility] [address] [place] [address] 05/05/2025 Charles Guerrier Type 2 diabetes mellitus [...] Treatment Pending Test Test Name Order Date 14389-MATLREO NAIL, 6 OR MORE 04/25/2022 72757-EKNDBJE NAIL, 6 OR MORE 07/15/2022 97264-EOKFPAA NAIL, 6 OR MORE 09/26/2022 41614-KEMGDAX NAIL, 6 OR MORE 05/01/2023 86485-UJGJMSQ NAIL, 6 OR MORE 10/06/2023 61015-UTAXLIU NAIL, 6 OR MORE 05/24/2024 60868-SNFONCJ NAIL, 6 OR MORE 05/05/2025 71049-HHMP SKIN LESIONS, OVER 4 05/05/20 25 67105-BPRP SKIN LESIONS, OVER 4 05/24/20 24 94254-VEAZ SKIN LESIONS, OVER 4 10/06/20 23 80667-XDCE SKIN LESIONS, OVER 4 05/01/20 23 41397-QEGS SKIN LESIONS, OVER 4 09/26/20 22 32088-MKMI SKIN LESIONS, OVER 4 07/15/20 22 49452-QPOZ SKIN LESIONS, OVER 4 04/25/20 22 Next Appt Details Provider Name:Charles Guerrier , 10/20/2025 12:45:00 PM, [address] [place], [address], Insurance Providers Payer Name Payer Address Payer Phone Subscriber Number Group Number Insured Name Patient Relationship to Insured Coverage Start Date Coverage End Date AARP Medicare Complete [address] [address] [place] [address] [id number] Stefania Schuster Self - patient is the [...]
== END 2025-09-27 13:00 | disposition home or self-care (01) ==
LOC: HO.HWS 12:12
PROVIDERS: PCP Internal Medicine; Visit Provider Obstetrics & Gynecology
DX: Z01.419 Encounter for gynecological examination (general) (routine) without abnormal findings (principal); R31.29 Other microscopic hematuria; Z13.89 Encounter for screening for other disorder
CPT/HCPCS: 99397; 99459

== ENCOUNTER → 2025-09-27 12:11 | Outpatient (BNVA) | payer MEDICARE, SELFPAY | PROVIDERS: PCP Internal Medicine; Visit Provider Obstetrics & Gynecology | DX: R31.29 Other microscopic hematuria (principal); Z01.419 Encounter for gynecological examination (general) (routine) without abnormal findings; Z99.81 Dependence on supplemental oxygen; Z87.891 Personal history of nicotine dependence | CPT/HCPCS: 81002; 99397 ==

== ENCOUNTER 2025-10-14 08:33 | Outpatient (REF) | payer MEDICARE, SELFPAY ==
--- OUTSIDE RECORDS SUMMARY | 2025-03-31 07:00 | XMS_ITS ---
Author Organization [facility] Address [address] [place] [address] Care Team Providers Care Ground Systems Engineer Name Role Phone Milli Colin MD Primary Care Provider Unavaila Charles Marinelli Unavailable [phone] Dela Cruz Encounters Encounter Location Date Provider Diagnosis [address] [address] 03/31/2025 Charles Guerrier Plan Of Treatment Next Appt Details Provider Name:Charles Guerrier , 10/20/2025 12:45:00 PM, [address] [place] [address], [phone], Progress Notes * Stefania DILLON MDOB:[birth year] (75 yo F)Acc No.[id number]:03/31/2025 Progress Note Patient: Ruchi Stefania MCCLOUD Provider: Stella Guerrier DPM :1950 A ge:75 Y S ex:Female Date:03/31/2025 Address: [place] Pcp:Milli Colin MD Subjective: * Chief Complaints: * [address] Dela Cruz. * Medical History: Objective: * Vitals: Assessment: Plan: * Treatment: * Images: * The named appointment provid er may or may not be the originator of this progress note, and it is not deemed complete until electronically signed by the appointment provider. Sign off status: Pending * Provider: Stella Guerrier DPM Date: 0 03/31/2025 Generated for Bev Salazar on: 12/14/2024 08:36 AM EST
--- OUTSIDE RECORDS SUMMARY | 2025-09-29 07:00 | XMS_ITS ---
Author Organization [facility] Address [address] [place] [address] Care Team Providers Care Tube And Manifold Builder Name Role Phone Milli Colin MD Primary Care Provider UnavailCharles Macias Unavailable [phone] Encounters Encounter Location Date Provider Diagnosis [address] [address] 09/29/2025 Charles Guerrier Plan Of Treatment Next Appt Details Provider Name:Charles Guerrier , 10/20/2025 12:45:00 PM, [address] [place] [address], [phone], Progress Notes * Stefania DILLON MDOB:[birth year] (75 yo F)Acc No.[id number]:09/29/2025 Progress Note Patient: Ruchi Stefania MCCLOUD Provider: Stella Guerrier DPM :1950 A ge:75 Y S ex:Female Date:09/29/2025 Address: [address] [id number] Pcp:Milli Colin MD Subjective: * Chief Complaints: * * Medical History: Objective: * Vitals: Assessment: Plan: * Treatment: * Images: * The named appointment provid er may or may not be the originator of this progress note, and it is not deemed complete until electronically signed by the appointment provider. Sign off status: Pending * Provider: Stella Guerrier DPM Date: 11/29/2024 Generated for Bev gonzalez/Connor on: 12/14/2024 08:35 AM EST
--- OUTSIDE RECORDS SUMMARY | 2025-10-10 08:30 | XMS_ITS ---
Author Organization [facility] Address [address] [place] [address] Care Team Providers Care Mis Specialist Name Role Phone Milli Colin MD Primary Care Provider Unavaila Charles Marinelli Unavailable [phone] Dela Cruz Encounters Encounter Location Date Provider Diagnosis [address] [address] 10/10/2025 Charles Guerrier Plan Of Treatment Next Appt Details Provider Name:Charles Guerrier , 10/20/2025 12:45:00 PM, [address] [place] [address], [phone], Progress Notes * Stefania DILLON MDOB:[birth year] (75 yo F)Acc No.[id number]:10/10/2025 Progress Note Patient: Ruchi Stefania MCCLOUD Provider: Stella Guerrier DPM :1950 A ge:75 Y S ex:Female Date:10/10/2025 Address: [address] [id number] Pcp:Milli Colin MD Subjective: * Chief Complaints: [...] Pending * Provider: Stella Guerrier DPM Date: 12/10/2024 Generated for Bev Salazar on: 12/14/2024 08:35 AM EST
--- OUTSIDE RECORDS SUMMARY | 2025-10-14 08:36 | XMS_ITS | Patient Health Record ---
Author Organization [facility] Address [address] [place] [address] Care Team Providers Care Shank Sander Name Role Phone Dahlia(inactive) Beka FOURNIER Primary Care Provider U Jarrett Lee Jr Unavailable Allergies Allergen (clinical drug ingredient) Drug/Non Drug Allergy documented on EMR Reaction Allergy Type Onset Date Status Information temporarily unavailable Penicillamine Unknown Drug Allergy Active Information temporarily unavailable Sulfacet-R Unknown Drug Allergy Active Reason For Referral No Information Medications Medication SIG (Take, Route, Frequency, Duration) Notes Start Date End Date Status Advair Diskus 250-50 MCG/DOS E Aerosol Powder Breath Activated 1 puff Inhalation Twice a day Active hydroCHLOROthiazide 25 MG Tablet 1 tablet Orally Once a day Active Glucosamine 750 MG Tablet Orally Active ZyrTEC Allergy 10 MG Tablet 1 tablet as needed Orally Once a day Active PriLOSEC 10 MG Capsule Delay ed Release 2 capsules Orally Once a day Active ProAir HFA 108 (90 Base) MCG/ACT Aerosol Solution 2 puffs as needed Inhalation every 4 hrs Active Colyte with Flavor Packs 240 GM Solution Reconstituted As directed Orally Over the specified time.; Duration: 1 day(s) 10/18/2014 Active Multivitamins Capsule Orally Active Fish Oil 1000 MG Capsule 1 capsule Orall y Once a day Active Social History Social History Additional Details Category Social Info Options Details Miscellaneous: Marital status: Occupation: retired Problems Problem Type SNOMED Code ICD Code Onset Dates Problem Status W/U Status Risk Notes Problem Information temporarily unavailable Encounter for long-term (current) use of other medications (V58.69) Active confirmed Problem Information temporarily unavailable Colon cancer screening (V76.51) Active confirmed Plan Of Treatment Future Test Test Name Order Date COLONOSCOPY 10/18/2014 Insurance Providers Payer Name Payer Address Payer Phone Subscriber Number Group Number Insured Name Patient Relationship to Insured Coverage Start Date Coverage End Date [place]ARE OF [place] [address] [place] [id number] BLAYNE JONES Self - patient is the insured MEDEX ATTN CLAIMS [address] [place] [address] [id number] BLAYNE JONES Self - patient is the insured Medical (General) History Medical History History ICD Code colonoscopy 03-13-2004 copd edema plantar fascititis Denies [place],DM,CVA,renal disease esophageal reflux degenerative joint disease allergies hypertension Surgical History Surgery Date(Month/Year) cholecystectomy benign breast tumor
--- OUTSIDE RECORDS SUMMARY | 2025-10-14 08:36 | XMS_ITS | Patient Health Record ---
Author [facility] Address [address] [facility] [place] [address] Care Team Providers Care Executive Wellness Programs Director Name Role Phone Milli Colin MD Primary Care Provider Unavaila Charles Marinelli Unavailable [phone] Allergies Allergen (clinical drug ingredient) Drug/Non Drug Allergy documented on EMR Reaction Allergy Type Onset Date Status Information temporarily unavailable Amoxicillin Unknown Drug Allergy Active Information temporarily unavailable Bactrim Unknown Drug Allergy Active Results Component [...] Status Risk Notes Problem Information temporarily unavailable Other hammer toe(s) (acquired), right foot (M20.41) Active confirmed Response to treatment,I mprovement Problem Information temporarily unavailable Type 2 diabetes mellitus with diabetic peripheral angiopathy without gangrene (E11.51) Active confirmed Problem Information temporarily unavailable Other hammer toe(s) (acquired), left foot (M20.42) Active confirmed Response to treatment,I mprovement Vital Signs Blood pressure diastolic 65 mm Hg 05/05/2025 Height 5 ft 1 in in 05/05/2025 Blood pressure systolic 128 mm Hg 05/05/2025 Weight 186 lbs 05/05/2025 BMI 35.14 kg/m2 05/05/2025 Procedures Procedure Date Ordered Date Performed Result Body Sit e 09077-OPILQFB NAIL, 6 OR MORE 05/05/2025 N/A 99851-EAKY SKIN LESIONS, OVER 4 05/05/2025 N/A Encounters Encounter Location Date Provider Diagnosis [facility] [address] [place] [address] 05/05/2025 Charles Guerrier Type 2 diabetes mellitus [...] Treatment Pending Test Test Name Order Date 63542-TCRFBGT NAIL, 6 OR MORE 04/25/2022 67171-GBVXJRK NAIL, 6 OR MORE 07/15/2022 61810-UBDUXVC NAIL, 6 OR MORE 09/26/2022 33271-JJFZZEL NAIL, 6 OR MORE 05/01/2023 24096-XMVLLBA NAIL, 6 OR MORE 10/06/2023 32080-FYLKDCN NAIL, 6 OR MORE 05/24/2024 85356-HQLZXEO NAIL, 6 OR MORE 05/05/2025 36219-GFFH SKIN LESIONS, OVER 4 05/05/20 25 75403-BSSK SKIN LESIONS, OVER 4 05/24/20 24 68097-KSRO SKIN LESIONS, OVER 4 10/06/20 23 82878-CULM SKIN LESIONS, OVER 4 05/01/20 23 63628-XVSK SKIN LESIONS, OVER 4 09/26/20 22 32736-VPDQ SKIN LESIONS, OVER 4 07/15/20 22 79957-NKTX SKIN LESIONS, OVER 4 04/25/20 22 Next Appt Details Provider Name:Charles Guerrier , 10/20/2025 12:45:00 PM, [address] [place] [address], [phone], Insurance Providers Payer Name Payer Address Payer Phone Subscriber Number Group Number Insured Name Patient Relationship to Insured Coverage Start Date Coverage End Date AARP Medicare Complete [address] [address] [place] [id number] Stefania Schuster Self - patient is the insured Medical (General) History Medical History History ICD Code Back,Hip,and Knee pain Cataracts type II diabetes Gall bladder problems Glaucoma Headaches/Migraines Lung disease Reflux ( GERD) Sinus conditions Measles Mumps Chicken pox Surgical History Surgery Date(Month/Year) Oral surgery 2003 & 2008 gall bladder 2005 cyst- left breast 1981 cataracts 03/09/12 cervic surgery 03/2022
[2025-10-14 11:15] LABS: MANUAL DIFF FLAG NO
[2025-10-14 11:20] LABS: Hematocrit 36.1 % (37.0-47.0); Hemoglobin 12.2 g/dl (12.0-16.0); Imm Gran Abs Auto 0.04 X10*3/uL (0.00-0.03); Imm Gran Pct Auto 0.4 % (0.0-0.4); Lymphocytes Absolute Auto 3.2 X10*3/uL (1.2-4.9); Mean Corpuscular HGB Conc 33.8 g/dl (31.0-35.0); Mean Corpuscular Hemoglobin 32.6 pg (27.0-33.0); Mean Corpuscular Volume 96.5 fL (80.0-98.0); NRBC Abs Auto 0.000 X10*3/uL (0.0-0.012); NRBC Pct Auto 0.0 /100WBC (0.0-0.2); Platelet Count 300 X10*3/uL (160-400); Red Blood Count 3.74 X10*6/uL (4.20-5.50); White Blood Count 9.3 X10*3/uL (4.8-10.8)
[2025-10-14 11:36] LABS: Alanine Aminotransferase 14 U/L (0-31); Albumin Level 4.1 g/dL (3.5-5.0); Alkaline Phosphatase 64 U/L (39-117); Anion Gap 15 (12-20); Aspartate Amino Transferase 25 U/L (5-31); Blood Urea Nitrogen 25 mg/dL (9-16); Calcium 9.8 mg/dL (8.4-10.2); Carbon Dioxide 26 mmol/L (22-29); Chloride 104 mmol/L (96-108); Cholesterol 180 mg/dL (<200); Estimated Glomerular Filt Rate 37; HDL Cholesterol 47 mg/dL (>40); Iron 107 mcg/dL (30-160); Percent Iron Saturation 43 % (15-50); Potassium 4.4 mmol/L (3.3-5.1); Sodium 141 mmol/L (135-145); Total Iron Binding Capacity 246 mcg/dL (228-428); Total Protein 6.7 g/dL (6.5-8.0); Triglycerides 169 mg/dL (<150); Unsaturated Iron Binding 139 ug/dL
[2025-10-14 12:11] LABS: Folate 15.9 ng/mL (> or = 4.0); Vitamin B12 150 pg/mL (200-900)
[2025-10-14 12:15] LABS: Microalbum/Creatinine Ratio Ur 16.4 ug/mg cr (<30)
== END 2025-10-14 08:34 | disposition home or self-care (01) ==
LOC: HO.HMGCLDS 08:33
PROVIDERS: PCP Internal Medicine; Visit Provider Internal Medicine
DX: E11.9 Type 2 diabetes mellitus without complications (principal); J44.9 Chronic obstructive pulmonary disease, unspecified; E55.9 Vitamin D deficiency, unspecified
CPT/HCPCS: 36415; 80053; 80061; 82043; 82570; 82607; 82746; 83036; 83540; 85025

== ENCOUNTER 2025-10-17 10:44 | Outpatient (AMB) | payer MEDICARE, SELFPAY ==
[2025-10-17 10:45] VITALS: BP 124/66; PULSE 82; RESP 16; O2SAT 92; BMI 30.2
--- NOTE | 2025-10-17 10:45 | MHC.PC.OV ---
Vital Signs 10/17/25 10:45 Height 5 ft 1 in Weight 160 lb BMI 30.2 BP 124/66 Blood Pressure Location Rt brachial Position Sitting Respiration 16 Pulse 82 Pulse Source Pulse Oximeter Pulse Oximetry (%) 92 Oxygen Delivery Method Room Air Intake Visit Reasons: 3m follow up Intake Note: Pt is here today for 3 months follow up visit. Allergies Penicillins Allergy (Unknown, Verified 10/17/25 10:50) pt does not know she was a child Sulfa (Sulfonamide Antibiotics) Allergy (Unknown, Verified 10/17/25 10:50) Unknown Medication List - Last Reconciled 10/17/25 by Milli Colin MD albuterol sulfate 90 mcg/actuation (Ventolin HFA) 2 puffs inhalation Q6H PRN ascorbic acid (vitamin C) 500 mg PO DAILY bisoprolol fumarate 5 mg PO DAILY blood sugar diagnostic (SpunLive Ultra Blue Test Strip) As directed calcium carbonate (Calcium 600) 1,200 mg PO QDAY cetirizine (Zyrtec) 10 mg PO DAILY cholecalciferol (vitamin D3) 25 mcg PO DAILY xtrobievfii-ikbaxofqt-hnfbwewc 100-62.5-25 mcg (Trelegy Ellipta) 1 ea PO DAILY glucosamine HCl 1,500 mg PO DAILY lactobacillus combination no.4 (Senior Probiotic) PO lancets (SpunLive Delica Lancets) As directed metformin 500 mg PO BID Mounjaro (tirzepatide) 5 mg (0.5 mL) subcut QWEEK NS multivitamin (Multiple Vitamins tablet) 1 tab PO DAILY omega 1-odm-rpb-fish oil 1,000 (120-180) mg (Fish Oil) 1 cap PO DAILY omeprazole magnesium (Prilosec OTC) 20 mg PO DAILY [oxygen concentrator with portability including oxygen supplies. 2 liters/min flow rate] sertraline 25 mg PO DAILY spironolactone 25 mg PO DAILY Tobacco use date assessed: 10/17/25 Fall risk assessment: No Falls in past year Last assessed Fall Risk: 10/17/25 Dental Screening Dental Screen Date: 04/28/25 HPI 3m follow up HPI Details Patient presents for the follow-up of type 2 diabetes hypertension COPD. Patient lost 45 lb since she started Mounjaro year ago. She reports feeling well has been more physically active and her dyspnea on exertion improved significantly. She is established with social services designee for nocturnal hypoxia on supplemental O2 and will have overnight oximetry repeated. Patient reports episodes of some lightheadedness when standing up quickly. She denies exercise related lightheadedness dizziness chest pain or shortness or breath [facility] Medical History HTN (hypertension) Annual physical exam Arthritis History of DVT (deep vein thrombosis) GERD (gastroesophageal reflux disease) Dependence on nocturnal oxygen therapy Postmenopausal bleeding Vaginal prolapse Increased urinary frequency Vitamin D deficiency MORRO (obstructive sleep apnea) Nocturnal hypoxemia Hypoxia Overweight Mammogram normal Colon cancer screening DM (diabetes mellitus) Osteoarthritis GERD (gastroesophageal reflux disease) COPD (chronic obstructive pulmonary disease) Surgical History Hx of cholecystectomy History of cataract H/O colonoscopy Family History Father ETOH abuse Cirrhosis Mother COPD (chronic obstructive pulmonary disease) Diabetes Brother Substance use disorder Social History Household Members: Spouse Housing: House Alcohol intake: current Alcohol intake frequency: holidays/special occasions only Patient Tobacco Use Status: Former Tobacco user Years Smoked: 30 e-Cigarette/Vaping Use: Never Used service: No Current occupational status: retired Sexual orientation: Straight/Heterosexual Gender identity: Female Cognitive needs: No Hearing needs: No Vision needs: Yes Female Reproductive History Menstrual Age of Menarche: 12 Questionnaire Thrive Questionnaire Date Thrive assessed: 01/17/25 I am a: Patient What is your living situation today?: I have a steady place to live Within the past 12 months, did the food you bought not last and you didn't have the money to get more?: Never true Within the past 12 months, did you worry whether your food would run out before you got money to buy more?: Never true Do you have trouble paying for medicines?: No Do you have trouble getting transportation to medical appointments?: No Do you have trouble paying your heating and electricity bill?: No Do you have trouble taking care of your child, family member or friend?: No Do you have trouble with day-to-day activities such as bathing, preparing meals, shopping, managing finances, etc.?: No Are you currently unemployed and looking for a job?: No Are you interested in more education?: I choose not to answer this question Please select the resources that you would like help with: None Currently or been in a relationship where the following occur: No concerns reported THRIVE Score: 0 CLARKE-7 AMB Questionnaire CLARKE-7 Date CLARKE - 7 assessed: 01/24/25 Source: Developed by Drs. Bradly Womack, Luz Shrestha, Bello Euceda and colleagues, with an educational elizabet from [employer]. Review of Systems Const All systems reviewed & are unremarkable except as noted in HPI and below Eyes Reports no additional complaints ENT Reports no additional complaints Card Reports no additional complaints Resp Reports no additional complaints GI Reports no additional complaints Reports no additional complaints Physical exam (Primary Care) Vital Signs: Last Vital Signs Pulse 82 10/17/25 10:45 Resp 16 10/17/25 10:45 BP 124/66 10/17/25 10:45 Pulse Ox 92 10/17/25 10:45 Oxygen Delivery Method Room Air 10/17/25 10:45 BMI result Body Mass Index 30.2 Tobacco/Smoking Status: Tobacco use Status Tobacco use date assessed 10/17/25 10/17/25 10:52 Patient Tobacco Use Status Former Tobacco user 10/17/25 10:52 e-Cigarette/Vaping Use Never Used 10/17/25 10:52 Thrive Assessment: Date of Thrive Assessment Date Thrive assessed 01/17/25 10/17/25 10:52 Currently or been in a relationship where the following occur: No concerns reported Const General: no acute distress HENMT Head: Yes normal to inspection Face and sinus: Yes normal facial exam Eyes General: appearance normal, both eyes and all related structures Neck Neck: Yes supple Resp Effort & Inspection: normal respiratory effort Auscultation: clear to auscultation bilaterally Cardio Rhythm: regular rhythm Heart sounds: S1 normal heart sound present and S2 normal heart sound present GI Inspection: Yes normal to inspection Palpation (GI): Soft to palpation Percussion: Yes normal to percussion Auscultation: normal bowel sounds Coding Level of Care Code Est Pt Level 4 (89825) Diagnoses HTN (hypertension) I10 Increased urinary frequency R35.0 DM (diabetes mellitus) E11.9 Hypoxia R09.02 COPD (chronic obstructive pulmonary disease) J44.9 Vitamin B 12 deficiency E53.8 Assessment & Plan Assessment & Plan (1) HTN (hypertension): Code(s): I10 - Essential (primary) hypertension Category: Medical Plan: Blood pressure is low and BUN creatinine level has increased. triamterene with hydrochlorothiazide will be discontinued and spironolactone 25 mg daily will be started instead. Basic metabolic panel will be checked in 2 weeks and patient will return in 1 month to check blood pressure (2) Increased urinary frequency: Code(s): R35.0 - Frequency of micturition Category: Medical Plan: Check urine culture (3) DM (diabetes mellitus): Comment: A1C 5.9 03/08 Code(s): E11.9 - Type 2 diabetes mellitus without complications Category: Medical Plan: A1c is 5.7. Continue current medications ADA diet and regular exercise (4) Hypoxia: Comment: SHE HAS NOCTURNAL HYPOXEMIA PART OF HER MILD MORRO AND COPD, WELL TREATED WITH USE OF O2 2 L/MINUTE SHE ALSO HAS EXERCISE INDUCED HYPOXEMIA, WELL TREATED WITH PORTABLE O2 2.5 L/MT , BUT THESE DAYS SHE IS NOT USING IT EXCEPT FOR HEAVY EXERTION. Code(s): R09.02 - Hypoxemia Category: Medical Plan: Follow-up with pulmonology (5) COPD (chronic obstructive pulmonary disease): Comment: Patient has chronic obstructive pulmonary disease, moderately severe. PFT on 02/27/2022 Clinically well controlled with the current regimen. She can walk outdoors, a few blocks without getting short of breath. She has not use the rescue inhaler for a while. Code(s): J44.9 - Chronic obstructive pulmonary disease, unspecified Category: Medical Plan: Continue Trelegy (6) Vitamin B 12 deficiency: Code(s): E53.8 - Deficiency of other specified B group vitamins Category: Medical Plan: Patient will start vitamin B12 1000 mcg daily Orders: Orders Basic Metabolic Panel 2 Weeks I10 - Essential (primary) hypertension Vitamin B12 and Folate 2 Weeks E53.8 - Deficiency of other specified B group vitamins Urine Culture Today R35.0 - Frequency of micturition Medications: New spironolactone 25 mg PO DAILY 30 tabs 0RF Refilled Mounjaro (tirzepatide) 5 mg (0.5 mL) subcut QWEEK 6 mL 2RF NS Discontinued triamterene-hydrochlorothiazid 37.5-25 mg Discontinued Reason: Doctor's Order 1 tab PO DAILY 90 tabs 3RF
== END 2025-10-17 11:49 | disposition home or self-care (01) ==
LOC: HO.HMCC 10:44
PROVIDERS: PCP Internal Medicine; Visit Provider Internal Medicine
DX: I10 Essential (primary) hypertension (principal); E11.9 Type 2 diabetes mellitus without complications; J44.9 Chronic obstructive pulmonary disease, unspecified; R35.0 Frequency of micturition; R09.02 Hypoxemia; E53.8 Deficiency of other specified B group vitamins

== ENCOUNTER → 2025-10-17 10:44 | Outpatient (BNVA) | payer MEDICARE, SELFPAY | PROVIDERS: PCP Internal Medicine; Visit Provider Internal Medicine | DX: I10 Essential (primary) hypertension (principal); R35.0 Frequency of micturition; E11.9 Type 2 diabetes mellitus without complications; R09.02 Hypoxemia; E53.8 Deficiency of other specified B group vitamins | CPT/HCPCS: 99212 ==